=== PATIENT | male | born 1945 | race Caucasian/White ===

== ENCOUNTER → 2017-08-27 | Outpatient (CLI) | payer MEDICARE ==
--- NOTE | 2017-08-27 13:01 | US ---
EXAMINATION TYPE: US kidneys/renal and bladder DATE OF EXAM: 08/27/2017 COMPARISON: US CLINICAL HISTORY: N18.3 Chronic kidney disease stage 3. EXAM MEASUREMENTS: Right Kidney: 10.1 x 5.6 x 5.2 cm Left Kidney: 10.3 x 5.6 x 5.2 cm Right Kidney: No hydronephrosis or masses seen, thinned cortex and diminished cortical medullary diff erentiation Left Kidney: 0.9 cm anechoic cyst with increased through transmission. Cortical thinning and diminish ed cortical medullary differentiation are noted. Bladder: not well distended and suboptimally evaluated. IMPRESSION: Solitary subcentimeter left renal cortical cyst in the setting of medical renal disease. No hydroneph rosis or nephrolithiasis.
== END | disposition home or self-care (01) ==
LOC: RADUSWWP 12:14
PROVIDERS: ATTEND Internal Medicine Nephrology
DX: N28.1 Cyst of kidney, acquired (principal); N18.3 Chronic kidney disease, stage 3 (moderate)
CPT/HCPCS: 76770

== ENCOUNTER → 2018-09-22 | Outpatient (CLI) | payer MEDICARE ==
--- NOTE | 2018-09-23 06:54 | US ---
EXAMINATION TYPE: US kidneys/renal and bladder DATE OF EXAM: 09/22/2018 COMPARISON: 2017 CLINICAL HISTORY: N18.3 CKD stage 3. EXAM MEASUREMENTS: Right Kidney: 9.1 x 4.9 x 5.3 cm Left Kidney: 9.8 x 5.5 x 3.9 cm Post Void Residual Volume: 32 mL Right Kidney: No hydronephrosis or masses seen Left Kidney: small cortical cyst 0.7 x 1.2 x 0.8 cm Bladder: wnl Bilateral Jets seen: Yes Normal Post Void Residual: Yes There is no evidence for hydronephrosis at this point in time. No nephrolithiasis is seen. No dontae s are identified. Cortical thinning in both kidneys is seen. Adjacent liver near Right kidney remains heterogeneously hyperechoic. The urinary bladder is poorly distended and thus lehman boptimally evaluated. Bilateral ureteral jets are however seen. IMPRESSION: No hydronephrosis is evident bilaterally. Cortical thinning bilaterally is felt product of chronic me dical renal disease. Probable fatty infiltration of adjacent liver incidentally noted.
== END ==
LOC: RADUSWWP 15:58
PROVIDERS: ATTEND Internal Medicine Nephrology
DX: N18.3 Chronic kidney disease, stage 3 (moderate) (principal)
CPT/HCPCS: 76770

== ENCOUNTER 2020-06-02 11:32 | Inpatient (IN) | payer MEDICARE ==
--- NOTE | 2020-06-02 12:22 | XR ---
EXAMINATION TYPE: XR chest 2V DATE OF EXAM: 06/02/2020 COMPARISON: NONE HISTORY: Shortness of breath TECHNIQUE: Frontal and lateral views of the chest are obtained. FINDINGS: Scattered senescent parenchymal changes noted. Hyperinflation compatible with COPD. No evidence for infiltrate. No evidence for atelectasis. Heart size is stable. Mediastinal structures are stable and grossly unremarkable. No evidence for hilar prominence. Degenerative changes dorsal spine. IMPRESSION: 1. No evidence for acute pulmonary disease.
[2020-06-02 12:43] LABS: Basophils % (A) 0 %; Eosinophils # (A) 0.1 k/uL (0-0.7); Eosinophils % (A) 1 %; HCT 43.4 % (39.0-53.0); HGB 13.5 gm/dL (13.0-17.5); Lymphocytes % (A) 5 %; MCH 29.9 pg (25.0-35.0); MCV 96.4 fL (80.0-100.0); Mean Platelet Volume 9.2; Monocytes % (A) 4 %; Neutrophils # (A) 20.6 k/uL (1.3-7.7); Neutrophils % (A) 90 %; Platelet Count 359 k/uL (150-450); RBC 4.51 m/uL (4.30-5.90); RDW 14.6 % (11.5-15.5); WBC 22.9 k/uL (3.8-10.6)
[2020-06-02 12:52] LABS: Albumin 2.5 g/dL (3.5-5.0); Calcium 9.1 mg/dL (8.4-10.2); Magnesium 2.2 mg/dL (1.6-2.3); Potassium 5.3 mmol/L (3.5-5.1); Total Bilirubin 1.2 mg/dL (0.2-1.3); Total Protein 5.7 g/dL (6.3-8.2)
--- NOTE | 2020-06-02 12:53 | ED ---
General Adult HPI - General Chief complaint: Recheck/Abnormal Lab/Rx Stated complaint: Abnormal labs Time Seen by Provider: 06/02/20 11:40 Source: patient, RN notes reviewed, old records reviewed Mode of arrival: wheelchair Limitations: physical limitation - History of Present Illness Initial comments: 75 yo female presenting for evaluation of abnormal labs and generalized weakness and fatigue. Patient states he had elevated INR, greater than 9. He has history of atrial fibrillation and is on Coumadin. He does report dyspnea with exertion and is easily fatigued. He denies chest pain. Denies headache. States he has had some hemorrhoids and his had some rectal bleeding. He denies abdominal pain. Denies fever. Denies cough. - Related Data Home Medications Medication Instructions Recorded Confirmed INSULIN ASPART (NovoLOG) [NovoLOG] See Protocol SQ AC-TID 11/01/14 06/02/20 Insulin Detemir (Levemir) [Levemir] 36 unit SQ DAILY 11/01/14 06/02/20 Metoprolol Tartrate [Lopressor] 50 mg PO BID 11/01/14 06/02/20 Simvastatin [Zocor] 20 mg PO HS 11/01/14 06/02/20 metFORMIN HCL [Glucophage] 500 mg PO BID 11/01/14 06/02/20 Calcitriol [Rocaltrol] 0.25 mcg PO WE@2100 06/02/20 06/02/20 Diltiazem HCl [Diltiazem HCl 24Hr 180 mg PO DAILY 06/02/20 06/02/20 ER] Allergies Allergy/AdvReac Type Severity Reaction Status Date / Time No Known Allergies Allergy Verified 06/02/20 12:37 Review of Systems ROS Statement: Those systems with pertinent positive or pertinent negative responses have been documented in the HPI. ROS Other: All systems not noted in ROS Statement are negative. Past Medical History Past Medical History: Atrial Fibrillation, Diabetes Mellitus, Hyperlipidemia, Hypertension History of Any Multi-Drug Resistant Organisms: None Reported Past Surgical History: Hernia Repair Additional Past Surgical History / Comment(s): cataract/ colonoscopy Past Psychological History: No Psychological Hx Reported Smoking Status: Former smoker Past Alcohol Use History: None Reported Past Drug Use History: None Reported - Past Family History Mother Family Medical History: Hypertension Father History Unknown: Yes Family Medical History: No Reported History General Exam Limitations: physical limitation General appearance: alert, in no apparent distress Head exam: Present: atraumatic, normocephalic Eye exam: Present: normal appearance, PERRL ENT exam: Present: mucous membranes dry Neck exam: Present: normal inspection. Absent: tenderness, meningismus Respiratory exam: Present: other (Tachypnea with good air entry). Absent: respiratory distress, wheezes Cardiovascular Exam: Present: normal rhythm, tachycardia GI/Abdominal exam: Present: soft. Absent: distended, tenderness, guarding Extremities exam: Present: normal inspection, normal capillary refill. Absent: pedal edema Neurological exam: Present: alert, oriented X3, CN II-XII intact. Absent: motor sensory deficit Psychiatric exam: Present: normal affect, normal mood Skin exam: Present: warm, dry, intact Course Vital Signs 06/02/20 06/02/20 06/02/20 11:33 12:00 13:03 Temperature 98.8 F Pulse Rate 127 H 122 H 108 H Respiratory 20 22 23 Rate Blood Pressure 101/64 101/78 117/72 O2 Sat by Pulse 98 98 98 Oximetry 06/02/20 14:02 Temperature Pulse Rate 101 H Respiratory 22 Rate Blood Pressure 102/75 O2 Sat by Pulse 96 Oximetry EKG Findings - EKG Comments: EKG Findings:: EKG: Atrial fibrillation with RVR, rate of 127, QRS duration 84, QTC 453, no ST segment elevation. Procedures - Sepsis Sepsis Focused Exam #1 Time Sepsis Criteria Met: 13:05 Sepsis Focused Exam Complete: Yes Vital Signs & RN Notes Reviewed: Yes Capillary Refill: < 2 Seconds: Fingers Peripheral Pulses: Normal: Radial (R), Radial (L) Skin Color: Normal for Patient Respiratory Exam: other (Mildly tachypneic respiratory rate of 22, good air entry) Cardiovascular Exam: regular rate, irregular rhythm Medical Decision Making - Medical Decision Making 75-year-old male presenting with abnormal labs, elevated INR. He does appear dyspneic and exam complaining of exertional dyspneic lungs are clear workup re veals significant leukocytosis, elevated lactic acid 5.7. The patient does not have any focal pneumonia on x-ray. He does have an elevated transaminase levels as well as alkaline phosphatase, ultrasound of the gallbladder has been ordered these results are pending. Patient is unable to give a urine sample in the emergency department, urinalysis and urine culture are pending. Blood cultures pending. Given vitamin K, Zosyn, vancomycin. Case discussed with Dr. Meneses, will admit awaiting further infectious workup as well as close monitoring of both vital signs, hemoglobin, INR. - Lab Data Result diagrams: 06/02/20 11:58 06/02/20 11:58 Lab Results 06/02/20 06/02/20 06/02/20 Range/Units 11:58 11:58 11:58 WBC 22.9 H (3.8-10.6) k/uL RBC 4.51 (4.30-5.90) m/uL Hgb 13.5 (13.0-17.5) gm/dL Hct 43.4 (39.0-53.0) % MCV 96.4 (80.0-100.0) fL MCH 29.9 (25.0-35.0) pg MCHC 31.0 (31.0-37.0) g/dL RDW 14.6 (11.5-15.5) % Plt Count 359 (150-450) k/uL Neutrophils % 90 % Lymphocytes % 5 % Monocytes % 4 % Eosinophils % 1 % Basophils % 0 % Neutrophils # 20.6 H (1.3-7.7) k/uL Lymphocytes # 1.0 (1.0-4.8) k/uL Monocytes # 1.0 (0-1.0) k/uL Eosinophils # 0.1 (0-0.7) k/uL Basophils # 0.0 (0-0.2) k/uL PT >130.0 H (9.0-12.0) sec INR >10.0 H* (<1.2) APTT 80.1 H (22.0-30.0) sec Sodium 134 L (137-145) mmol/L Potassium 5.3 H (3.5-5.1) mmol/L Chloride 102 (98-107) mmol/L Carbon Dioxide 21 L (22-30) mmol/L Anion Gap 11 mmol/L BUN 27 H (9-20) mg/dL Creatinine 1.23 (0.66-1.25) mg/dL Est GFR (CKD-EPI)AfAm 67 (>60 ml/min/1.73 sqM) Est GFR (CKD-EPI)NonAf 58 (>60 ml/min/1.73 sqM) Glucose 174 H (74-99) mg/dL Plasma Lactic Acid Brenton (0.7-2.0) mmol/L Calcium 9.1 (8.4-10.2) mg/dL Magnesium 2.2 (1.6-2.3) mg/dL Total Bilirubin 1.2 (0.2-1.3) mg/dL AST 173 H (17-59) U/L ALT 91 H (4-49) U/L Alkaline Phosphatase 965 H (38-126) U/L Troponin I (0.000-0.034) ng/mL NT-Pro-B Natriuret Pep pg/mL Total Protein 5.7 L (6.3-8.2) g/dL Albumin 2.5 L (3.5-5.0) g/dL 06/02/20 06/02/20 06/02/20 Range/Units 11:58 11:58 11:58 WBC (3.8-10.6) k/uL RBC (4.30-5.90) m/uL Hgb (13.0-17.5) gm/dL Hct (39.0-53.0) % MCV (80.0-100.0) fL MCH (25.0-35.0) pg MCHC (31.0-37.0) g/dL RDW (11.5-15.5) % Plt Count (150-450) k/uL Neutrophils % % Lymphocytes % % Monocytes % % Eosinophils % % Basophils % % Neutrophils # (1.3-7.7) k/uL Lymphocytes # (1.0-4.8) k/uL Monocytes # (0-1.0) k/uL Eosinophils # (0-0.7) k/uL Basophils # (0-0.2) k/uL PT (9.0-12.0) sec INR (<1.2) APTT (22.0-30.0) sec Sodium (137-145) mmol/L Potassium (3.5-5.1) mmol/L Chloride (98-107) mmol/L Carbon Dioxide (22-30) mmol/L Anion Gap mmol/L BUN (9-20) mg/dL Creatinine (0.66-1.25) mg/dL Est GFR (CKD-EPI)AfAm (>60 ml/min/1.73 sqM) Est GFR (CKD-EPI)NonAf (>60 ml/min/1.73 sqM) Glucose (74-99) mg/dL Plasma Lactic Acid Brenton 5.7 H* (0.7-2.0) mmol/L Calcium (8.4-10.2) mg/dL Magnesium (1.6-2.3) mg/dL Total Bilirubin (0.2-1.3) mg/dL AST (17-59) U/L ALT (4-49) U/L Alkaline Phosphatase (38-126) U/L Troponin I <0.012 (0.000-0.034) ng/mL NT-Pro-B Natriuret Pep 3460 pg/mL Total Protein (6.3-8.2) g/dL Albumin (3.5-5.0) g/dL Critical Care Time Critical Care Time: Yes Total Critical Care Time: 35 Disposition Clinical Impression: Supratherapeutic INR, Lactic acid acidosis, Sepsis Disposition: ADMITTED IP TO THIS [facility] Condition: Stable Is patient prescribed a controlled substance at d/c from ED?: No Decision to Admit Reason: Admit from EC Decision Date: 06/02/20 Decision Time: 13:51
[2020-06-02] MEDS ORDERED: SODIUM CHLORIDE 0.9% 1,000 ML IV ONE (13:02)
[2020-06-02] MEDS ORDERED: PIPERACILLIN-TAZOBACTAM 3.375 GM in SODIUM CHLORIDE 0.9% 100 ML IVPB STA (13:03)
[2020-06-02 13:07] LABS: INR >10.0 (<1.2)
[2020-06-02 13:11] LABS: Partial Thromboplastin Time 80.1 sec (22.0-30.0)
[2020-06-02 13:12] LABS: Prothrombin Time >130.0 sec (9.0-12.0)
[2020-06-02] MEDS ORDERED: VANCOMYCIN IV PER PHARMACY 1 EACH MISC MISCELLANE PRN (13:27)
[2020-06-02] MEDS ORDERED: PHYTONADIONE 5 MG in SODIUM CHLORIDE 0.9% 50 ML IVPB STA (13:32)
[2020-06-02] MEDS ORDERED: NALOXONE 0.4 MG/ML 1 ML VIAL IV PRN (13:44)
[2020-06-02] MEDS ORDERED: VANCOMYCIN 1,750 MG in SODIUM CHLORIDE 0.9% 500 ML 500 ML IVPB ONE (14:00)
[2020-06-02] MEDS: SODIUM CHLORIDE 0.9% 1,000 ML IV SCH (14:06)
--- NOTE | 2020-06-02 14:52 | US ---
EXAMINATION TYPE: US gallbladder DATE OF EXAM: 06/02/2020 COMPARISON: Ultrasound kidneys 09/22/2018 CLINICAL HISTORY: Abdominal pain. Elevated LFT's EXAM MEASUREMENTS: Liver Length: 20.3 cm Gallbladder Wall: 0.6 cm CBD: 0.5 cm Right Kidney: 8.9 x 5.0 x 6.0 cm Pancreas: Obscured due to overlying bowel gas Liver: Peripheral nodular contour. Caudate lobe enlargement. The liver is diffusely heterogenous wit h innumerable masses. Gallbladder: The gallbladder is contracted. There is wall thickening up to 6 mm. No cholelithiasis o r pericholecystic edema. Supervisor Typesetting reports negative sonographic Hummel sign. CBD: Normal. Right Kidney: No hydronephrosis; interpolar cyst measures 0.9 x 0.8 x 1.2 cm. Trace perihepatic ascites. IMPRESSION: 1. Cirrhotic heterogenous liver with innumerable hepatic masses likely representing diffuse metastati c disease. 2. Trace perihepatic ascites. 3. Gallbladder wall thickening is accentuated due to contracted state of the gallbladder, although li janki mildly thickened due to adjacent liver disease. No signs of acute cholecystitis.
[2020-06-02] MEDS ORDERED: RX INFO: IV CONTRAST WAS GIVEN 1 EACH MISC MISCELLANE PRN (16:23)
--- NOTE | 2020-06-02 16:29 | P.CNPUL ---
History of Present Illness Consult date: 06/02/20 Chief complaint: Generalized body aches, Coumadin toxicity History of present illness: 75-year-old female patient who presented emergency department because of generalized weakness and fatigue. The patient's is known to have diabetes mellitus in addition to chronic atrial fibrillation. 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 The blood work that was done and the ED was quite abnormal. The patient was toxic on Coumadin with an elevated INR of more than 10 without signs of any acute bleeding. Also, the patient had a white cell count of 22.9 and a lactate level of 5.7.He also abnormal with an ALT of 91, AST of 173 and bilirubin of 1.2 with an alk phos of 965. ProBNP level was 3460. Total protein was 5.7 with an albumin level of 2.5. This patient does not have any nausea or vomiting. No reported abdominal pain. No reported fever chills or night sweats. No reported cough or sputum production or chest that is so wheezing. No reported falls. Trace edema lower extremities. No headaches. No neck stiffness. No altered mentation. He has diffuse body soreness and body aches it's been going on for several months. He takes a statin medication. He soreness is throughout his body mainly in his upper and lower back area bilaterally. No recent falls. No open wounds or sores or ulceration. No dysu solis frequency or urgency.Ultrasound of the liver showed cirrhotic heterogeneous liver with multiple liver masses likely representing diffuse metastatic disease. There is also gallbladder wall thickening due to contracted state of the gallbladder. Review of Systems Constitutional: Reports fatigue, Reports weakness Eyes: denies as per HPI, denies blurred vision, denies bulging eye, denies decreased vision, denies diplopia, denies discharge, denies dry eye, denies irritation, denies itching, denies pain, denies photophobia, denies loss of peripheral vision, denies loss of vision, denies tunnel vision/blind spots Ears: deny: decreased hearing, ear discharge, earache, tinnitus Breasts: absent: as per HPI, gynecomastia Cardiovascular: Reports as per HPI, Reports irregular heart beat Respiratory: Reports as per HPI Gastrointestinal: Reports as per HPI Genitourinary: Reports as per HPI Musculoskeletal: Reports as per HPI Musculoskeletal: bilateral: ankle swelling, absent: ankle pain, ankle stiffness Neurological: Reports as per HPI Psychiatric: Reports as per HPI Endocrine: Reports as per HPI, Reports fatigue Hematologic/Lymphatic: Reports as per HPI Allergic/Immunologic: Reports as per HPI Past Medical History Past Medical History: Atrial Fibrillation, Diabetes Mellitus, Hyperlipidemia, Hypertension, Renal Disease, Vascular Disorder Additional Past Medical History / Comment(s): Per past medical record pt has hx CHF/pulmonary htn but pt/spouse do not recall this, IDDM type II, chronic renal disease, lower GI bleed pt thinks attributed to hemorrhoids, PVD, past L lower leg wound-healed, occasional bilateral lower leg edema, back pain, 2010 head trauma/contusion with L sided symptoms/seizure-no residual, past heavy drinking but quit in 2005. History of Any Multi-Drug Resistant Organisms: None Reported Past Surgical History: Hernia Repair Additional Past Surgical History / Comment(s): R inguinal hernia repair, colonoscopy, bilateral cataract removals/lens implant, pt unsure if had tonsillectomy. Past Anesthesia/Blood Transfusion Reactions: No Reported Reaction Smoking Status: Former smoker - Past Family History Mother Family Medical History: Hypertension Father History Unknown: Yes Family Medical History: No Reported History Medications and Allergies Home Medications Medication Instructions Recorded Confirmed Type INSULIN ASPART (NovoLOG) [NovoLOG] See Protocol SQ AC-TID 11/01/14 06/02/20 History Insulin Detemir (Levemir) [Levemir] 36 unit SQ DAILY 11/01/14 06/02/20 History Metoprolol Tartrate [Lopressor] 50 mg PO BID 11/01/14 06/02/20 History Simvastatin [Zocor] 20 mg PO HS 11/01/14 06/02/20 History metFORMIN HCL [Glucophage] 500 mg PO BID 11/01/14 06/02/20 History Calcitriol [Rocaltrol] 0.25 mcg PO WE@2100 06/02/20 06/02/20 History Diltiazem HCl [Diltiazem HCl 24Hr 180 mg PO DAILY 06/02/20 06/02/20 History ER] Allergies Allergy/AdvReac Type Severity Reaction Status Date / Time No Known Allergies Allergy Verified 06/02/20 12:37 Physical Exam Vitals: Vital Signs Temp Pulse Resp BP Pulse Ox 06/02/20 14:55 122 H 20 121/90 98 06/02/20 14:02 101 H 22 102/75 96 06/02/20 13:03 108 H 23 117/72 98 06/02/20 12:00 122 H 22 101/78 98 06/02/20 11:33 98.8 F 127 H 20 101/64 98 Intake and Output 06/02/20 06/02/20 06/02/20 06:59 14:59 22:59 Other: Weight 102.058 kg The patient appeared well nourished and normally developed. Vital signs as documented. Head exam is unremarkable. No scleral icterus or corneal arcus noted. Neck is without jugular venous distension, thyromegaly, or carotid bruits. Carotid upstrokes are brisk bilaterally. Lungs are clear to auscultation and percussion. Cardiac exam reveals the PMI to be normally sized and situated. Rhythm is regular. First and second heart sounds normal. No murmurs, rubs or gallops. Abdominal exam reveals normal bowel sounds, no masses, no organomegaly and no aortic enlargement. Extremities are edematous and the patient has +1 pitting edema in lower extremities bilaterally and both femoral and pedal pulses are normal.Neurologically, the patient is awake and alert and the patient does not have any focal neurological deficit. Cranial nerves are essentially intact.Examination of the skin revealed no evidence of significant rashes, suspicious appearing nevi or other concerning lesions. Results - Laboratory Findings CBC and BMP: 06/02/20 11:58 06/02/20 11:58 PT/INR, D-dimer PT >130.0 sec (9.0-12.0) H 06/02/20 11:58 INR >10.0 (<1.2) H* 06/02/20 11:58 Abnormal lab findings: Abnormal Labs 06/02/20 06/02/20 06/02/20 11:58 11:58 11:58 WBC 22.9 H Neutrophils # 20.6 H PT >130.0 H INR >10.0 H* APTT 80.1 H Sodium 134 L Potassium 5.3 H Carbon Dioxide 21 L BUN 27 H Glucose 174 H Plasma Lactic Acid Brenton AST 173 H ALT 91 H Alkaline Phosphatase 965 H Total Protein 5.7 L Albumin 2.5 L 06/02/20 11:58 WBC Neutrophils # PT INR APTT Sodium Potassium Carbon Dioxide BUN Glucose Plasma Lactic Acid Brenton 5.7 H* AST ALT Alkaline Phosphatase Total Protein Albumin - Diagnostic Findings Chest x-ray: image reviewed Assessment and Plan Plan: 1 generalized weakness, constipation symptoms with weight loss, loss of appetite and body aches, consider underlying metastatic disease/malignancy especially the patient had abnormal LFTs and the patient has an ultrasound of the abdomen that showed multiple hepatic lesions consistent with metastatic disease. This is to be further investigated. 2 cirrhotic liver based on ultrasound criteria 3 abnormal LFTs 4 mild lactic acidosis likely secondary to liver disease 5 leukocytosis, nonspecific, noninfectious 6 chronic atrial fibrillation, rate controlled 7 supratherapeutic PT/INR, INR of more than 10 without evidence of an acute bleed 8 diabetes mellitus 9 hypertension 10 hyperlipidemia. 11 peripheral vascular disease 12 CHF with secondary pulmonary hypertension 13 remote history of head trauma/contusion 14 remote history of alcoholism quit drinking 2005 Plan We'll admit the patient to the ICU We'll put the patient IV fluids of normal saline today to 130s's an hour We'll monitor the lactic acid level Will give 5 mg of vitamin K and recheck the PT/INR With proceed with a CAT scan of the chest abdomen and pelvis for cancer screening We'll check CEA and CA 19 9 levels Check amylase and lipase Colonoscopy done in 2014 was consistent with internal hemorrhoids without evidence of any malignancy
[2020-06-02 16:51] LABS: Glucose,Whole Blood 107 mg/dL (75-99)
[2020-06-02] MEDS: IOPAMIDOL CONTRAST (ORAL USE) VIAL PO PRN ×2 (17:33→18:28)
[2020-06-02 19:08] LABS: INR 3.9 (<1.2); Partial Thromboplastin Time 43.1 sec (22.0-30.0); Prothrombin Time 38.5 sec (9.0-12.0)
[2020-06-02 19:15] LABS: Amylase 58 U/L (30-110)
[2020-06-02 20:03] LABS: Appearance,Urine Clear (Clear); Bilirubin,Urine Negative (Negative); Blood,Urine Trace (Negative); Color,Urine Yellow; Glucose,Urine (UA) Negative (Negative); Hyaline Casts,Urine 39 /lpf (0-2); Ketones,Urine Negative (Negative); Leukocyte Esterase,Urine Negative (Negative); Mucus,Urine Rare /hpf; Nitrite,Urine Negative (Negative); Protein,Urine Negative (Negative); RBC,Urine 7 /hpf (0-5); Specific Gravity,Urine 1.032 (1.001-1.035); Squamous Epithelial Cell,Urine 1 /hpf (0-4); Urobilinogen,Urine <2.0 mg/dL (<2.0); WBC,Urine 2 /hpf (0-5)
[2020-06-02] MEDS: METOPROLOL TARTRATE 50 MG TAB PO SCH (20:47)
[2020-06-02 22:26] LABS: Glucose,Whole Blood 157 mg/dL (75-99)
[2020-06-02] MEDS: INSULIN ASPART (NovoLOG) 100 UNIT/ML VIAL SQ SCH (22:30)
--- NOTE | 2020-06-02 22:47 | CT ---
EXAMINATION TYPE: CT ChestAbdPelvis w con DATE OF EXAM: 06/02/2020 INDICATION: Weakness and abnormal labs. Metastatic disease. COMPARISON: None CT DLP: 2279.4 mGycm CONTRAST: Performed with Oral Contrast and with IV Contrast, patient injected with 80ml mL of Isovue 300. TECHNIQUE: Axial images at 5 mm thick sections. Reconstructed images in the coronal plane. Delayed images through the kidneys. FINDINGS: CT CHEST: Portion of the thyroid visualized is normal. No suspicious lung nodules. There is an infiltrate in the posterior lateral right lung base is some a telectasis or pneumonia. This should be followed to clearing. Small right pleural effusion is present . No enlarged mediastinal or hilar adenopathy is evident. The ascending aorta diameter at the level of the main pulmonary artery is 3.2 cm. The main pulmonary artery diameter at the bifurcation is 2.[address] ABDOMEN: Liver: Very heterogenous enlarged. Findings suspicious for extensive metastatic disease. Delayed imag es better demonstrate the largest lesion, a low-4 cm right mid measuring 4.1 cm. Small amount of asci cristina is adjacent to the liver. Spleen: Normal. Small amount of ascites is adjacent to the spleen. Pancreas: Atrophic Adrenal glands: The adrenal glands are normal. Gallbladder: Normal Kidneys: No masses are evident. No hydronephrosis is present. No cysts are present. Delayed images were obtained through the kidneys, which remain unremarkable. Aorta: Vascular calcification is within the aorta. Inferior vena cava: Normal. CT PELVIS: Free fluid is within the pelvis. Loops of bowel within the abdomen and pelvis are normal. There are loops of bowel which are incom pletely distended or lack oral contrast limiting their evaluation. Appendix: Not identified. No suspicious tubular structure inflammatory changes are evident. Urinary bladder: Normal. Genitourinary structures: Prostate is slightly prominent. Osseous structures: No suspicious lytic or sclerotic lesions. IMPRESSIONS: 1. Enlarged extensive heterogenous liver compatible with metastatic disease. 2. Ascites.
[2020-06-03] MEDS: SODIUM CHLORIDE 0.9% 1,000 ML IV SCH ×2 (03:30→03:37)
[2020-06-03] MEDS: PIPERACILLIN-TAZOBACTAM 3.375 GM in SODIUM CHLORIDE 0.9% 100 ML IVPB SCH ×3 (03:32→15:33)
[2020-06-03 03:55] LABS: Basophils % (A) 0 %; Eosinophils # (A) 0.1 k/uL (0-0.7); Eosinophils % (A) 1 %; HCT 36.5 % (39.0-53.0); HGB 11.2 gm/dL (13.0-17.5); Hypochromasia Slight; Lymphocytes # (A) 1.5 k/uL (1.0-4.8); Lymphocytes % (A) 8 %; MCH 29.9 pg (25.0-35.0); MCHC 30.7 g/dL (31.0-37.0); MCV 97.5 fL (80.0-100.0); Mean Platelet Volume 8.9; Monocytes # (A) 0.8 k/uL (0-1.0); Monocytes % (A) 4 %; Neutrophils # (A) 16.9 k/uL (1.3-7.7); Neutrophils % (A) 87 %; Platelet Count 268 k/uL (150-450); RBC 3.75 m/uL (4.30-5.90); RDW 14.5 % (11.5-15.5); WBC 19.4 k/uL (3.8-10.6)
[2020-06-03 04:08] LABS: INR 1.9 (<1.2); Prothrombin Time 18.1 sec (9.0-12.0)
[2020-06-03 04:11] LABS: Calcium 8.6 mg/dL (8.4-10.2); Potassium 4.9 mmol/L (3.5-5.1)
[2020-06-03 07:06] LABS: Glucose,Whole Blood 126 mg/dL (75-99)
[2020-06-03] MEDS: INSULIN ASPART (NovoLOG) 100 UNIT/ML VIAL SQ SCH ×4 (07:08→20:52)
[2020-06-03] MEDS: ACETAMINOPHEN TAB 325 MG TAB PO PRN ×2 (07:08→15:33)
[2020-06-03] MEDS: METOPROLOL TARTRATE 50 MG TAB PO SCH ×2 (07:09→20:52)
[2020-06-03] MEDS: VANCOMYCIN 1,750 MG in SODIUM CHLORIDE 0.9% 500 ML 500 ML IVPB SCH ×2 (08:04→20:59)
[2020-06-03] MEDS: DILTIAZEM CD 180 MG CAP.ER.24H PO SCH (08:05)
--- NOTE | 2020-06-03 11:25 | P.PN ---
Subjective Progress Note Date: 06/03/20 75-year-old female patient who presented emergency department because of generalized weakness and fatigue. The patient's is known to have diabetes mellitus in addition to chronic atrial fibrillation. 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 The blood work that was done and the ED was quite abnormal. The patient was toxic on Coumadin with an elevated INR of more than 10 without signs of any acute bleeding. Also, the patient had a white cell count of 22.9 and a lactate level of 5.7.He also abnormal with an ALT of 91, AST of 173 and bilirubin of 1.2 with an alk phos of 965. ProBNP level was 3460. Total protein was 5.7 with an albumin level of 2.5. This patient does no t have any nausea or vomiting. No reported abdominal pain. No reported fever chills or night sweats. No reported cough or sputum production or chest that is so wheezing. No reported falls. Trace edema lower extremities. No headaches. No neck stiffness. No altered mentation. He has diffuse body soreness and body aches it's been going on for several months. He takes a statin medication. He soreness is throughout his body mainly in his upper and lower back area bilaterally. No recent falls. No open wounds or sores or ulceration. No dysuria frequency or urgency.Ultrasound of the liver showed cirrhotic heterogeneous liver with multiple liver masses likely representing diffuse metastatic disease. There is also gallbladder wall thickening due to contracted state of the gallbladder. On 06/03/2020, the patient is being seen in follow-up in the intensive care unit. The patient is calm and comfortable and has no specific complaints. Note that the patient's was hospitalized for some constitutional symptoms addition lactic acidosis of Coumadin toxicity. The Coumadin toxicity was reversed and the patient's INR is down to 1.9. He'll be kept off Coumadin for now. At the same time, further investigation showed the possibility of a metastatic liver involvement and the patient will need further investigation. CAT scan of the chest abdomen and pelvis was completed and the CAT scan showed enlarged extensive heterogeneous liver compatible with metastatic disease. Note that t here was large lesions in the liver up to 4 cm in size and small amount of ascites. The white cell count is at 19.4. Hemoglobin is 11.2. INR is down to 1.9. Her function is stable with a creatinine of 1.2. The patient's lactic acid level is at 3.9. Calcium is at 8.6. He is tolerating his diet. No nausea. No vomiting. No diarrhea. No abdominal pain. No other complaints otherwise for now. Objective - Vital Signs Vital signs: Vital Signs Temp 98.2 F 06/03/20 04:00 Pulse 111 H 06/03/20 09:00 Resp 19 06/03/20 09:00 BP 105/77 06/03/20 08:00 Pulse Ox 94 L 06/03/20 09:00 Intake & Output 06/02/20 06/03/20 06/03/20 18:59 06:59 18:59 Intake Total 130 2760 1220 Output Total 460 0 Balance 130 2300 1220 Weight 102.058 kg 105.097 kg Intake: IV 130 1560 260 Sodium Chloride 0.9% 1, 130 1560 260 000 ml @ 130 mls/hr IV . Q7H42M [facility] Rx#:[id number] Intake, IV Titration 600 Amount Piperacillin-Tazobactam 3 100 .375 gm In Sodium Chloride 0.9% 100 ml @ 25 mls/hr IVPB Q8HR [facility] Rx# :[id number] Vancomycin 1,750 mg In 500 Sodium Chloride 0.9% 500 ml 500 ml @ 167 mls/hr IVPB Q16H [facility] Rx#: [id number] Oral 1200 360 Output: Urine 460 0 Other: Voiding Method Urinal Urinal # Voids 1 1 # Bowel Movements 1 1 - Exam The patient appeared well nourished and normally developed. Vital signs as documented. Head exam is unremarkable. No scleral icterus or corneal arcus noted. Neck is without jugular venous distension, thyromegaly, or carotid bruits. Carotid upstrokes are brisk bilaterally. Lungs are clear to auscultation and percussion. Cardiac exam reveals the PMI to be normally sized and situated. Rhythm is regular. First and second heart sounds normal. No murmurs, rubs or gallops. Abdominal exam reveals normal bowel sounds, no masses, no organomegaly and no aortic enlargement. Extremities are edematous and the patient has +1 pitting edema in lower extremities bilaterally and both femoral and pedal pulses are normal.Neurologically, the patient is awake and alert and the patient does not have any focal neurological deficit. Cranial nerves are essentially intact.Examination of the skin revealed no evidence of significant rashes, suspicious appearing nevi or other concerning lesions. - Labs CBC & Chem 7: 06/03/20 03:29 06/03/20 03:29 Labs: Abnormal Lab Results - Last 24 Hours (Table) 06/02/20 06/02/20 06/02/20 Range/Units 11:58 11:58 11:58 WBC 22.9 H (3.8-10.6) k/uL RBC (4.30-5.90) m/uL Hgb (13.0-17.5) gm/dL Hct (39.0-53.0) % MCHC (31.0-37.0) g/dL Neutrophils # 20.6 H (1.3-7.7) k/uL PT >130.0 H (9.0-12.0) sec INR >10.0 H* (<1.2) APTT 80.1 H (22.0-30.0) sec Sodium 134 L (137-145) mmol/L Potassium 5.3 H (3.5-5.1) mmol/L Carbon Dioxide 21 L (22-30) mmol/L BUN 27 H (9-20) mg/dL Glucose 174 H (74-99) mg/dL POC Glucose (mg/dL) (75-99) mg/dL Plasma Lactic Acid Brenton (0.7-2.0) mmol/L AST 173 H (17-59) U/L ALT 91 H (4-49) U/L Alkaline Phosphatase 965 H (38-126) U/L Total Protein 5.7 L (6.3-8.2) g/dL Albumin 2.5 L (3.5-5.0) g/dL Urine Blood (Negative) Urine RBC (0-5) /hpf Hyaline Casts (0-2) /lpf Urine Mucus (None) /hpf 06/02/20 06/02/20 06/02/20 Range/Units 11:58 15:09 16:49 WBC (3.8-10.6) k/uL RBC (4.30-5.90) m/uL Hgb (13.0-17.5) gm/dL Hct (39.0-53.0) % MCHC (31.0-37.0) g/dL Neutrophils # (1.3-7.7) k/uL PT (9.0-12.0) sec INR (<1.2) APTT (22.0-30.0) sec Sodium (137-145) mmol/L Potassium (3.5-5.1) mmol/L Carbon Dioxide (22-30) mmol/L BUN (9-20) mg/dL Glucose (74-99) mg/dL POC Glucose (mg/dL) 107 H (75-99) mg/dL Plasma Lactic Acid Brenton 5.7 H* 4.4 H* (0.7-2.0) mmol/L AST (17-59) U/L ALT (4-49) U/L Alkaline Phosphatase (38-126) U/L Total Protein (6.3-8.2) g/dL Albumin (3.5-5.0) g/dL Urine Blood (Negative) Urine RBC (0-5) /hpf Hyaline Casts (0-2) /lpf Urine Mucus (None) /hpf 06/02/20 06/02/20 06/02/20 Range/Units 18:29 18:38 19:46 WBC (3.8-10.6) k/uL RBC (4.30-5.90) m/uL Hgb (13.0-17.5) gm/dL Hct (39.0-53.0) % MCHC (31.0-37.0) g/dL Neutrophils # (1.3-7.7) k/uL PT 38.5 H (9.0-12.0) sec INR 3.9 H (<1.2) APTT 43.1 H (22.0-30.0) sec Sodium (137-145) mmol/L Potassium (3.5-5.1) mmol/L Carbon Dioxide (22-30) mmol/L BUN (9-20) mg/dL Glucose (74-99) mg/dL POC Glucose (mg/dL) (75-99) mg/dL Plasma Lactic Acid Brenton 3.0 H* (0.7-2.0) mmol/L AST (17-59) U/L ALT (4-49) U/L Alkaline Phosphatase (38-126) U/L Total Protein (6.3-8.2) g/dL Albumin (3.5-5.0) g/dL Urine Blood Trace H (Negative) Urine RBC 7 H (0-5) /hpf Hyaline Casts 39 H (0-2) /lpf Urine Mucus Rare H (None) /hpf 06/02/20 06/02/20 06/03/20 Range/Units 21:26 22:24 00:15 WBC (3.8-10.6) k/uL RBC (4.30-5.90) m/uL Hgb (13.0-17.5) gm/dL Hct (39.0-53.0) % MCHC (31.0-37.0) g/dL Neutrophils # (1.3-7.7) k/uL PT (9.0-12.0) sec INR (<1.2) APTT (22.0-30.0) sec Sodium (137-145) mmol/L Potassium (3.5-5.1) mmol/L Carbon Dioxide (22-30) mmol/L BUN (9-20) mg/dL Glucose (74-99) mg/dL POC Glucose (mg/dL) 157 H (75-99) mg/dL Plasma Lactic Acid Brenton 3.7 H* 3.9 H* (0.7-2.0) mmol/L AST (17-59) U/L ALT (4-49) U/L Alkaline Phosphatase (38-126) U/L Total Protein (6.3-8.2) g/dL Albumin (3.5-5.0) g/dL Urine Blood (Negative) Urine RBC (0-5) /hpf Hyaline Casts (0-2) /lpf Urine Mucus (None) /hpf 06/03/20 06/03/20 06/03/20 Range/Units 03:29 03:29 03:29 WBC 19.4 H (3.8-10.6) k/uL RBC 3.75 L (4.30-5.90) m/uL Hgb 11.2 L (13.0-17.5) gm/dL Hct 36.5 L (39.0-53.0) % MCHC 30.7 L (31.0-37.0) g/dL Neutrophils # 16.9 H (1.3-7.7) k/uL PT 18.1 H (9.0-12.0) sec INR 1.9 H (<1.2) APTT (22.0-30.0) sec Sodium 132 L (137-145) mmol/L Potassium (3.5-5.1) mmol/L Carbon Dioxide (22-30) mmol/L BUN 29 H (9-20) mg/dL Glucose 120 H (74-99) mg/dL POC Glucose (mg/dL) (75-99) mg/dL Plasma Lactic Acid Brenton (0.7-2.0) mmol/L AST (17-59) U/L ALT (4-49) U/L Alkaline Phosphatase (38-126) U/L Total Protein (6.3-8.2) g/dL Albumin (3.5-5.0) g/dL Urine Blood (Negative) Urine RBC (0-5) /hpf Hyaline Casts (0-2) /lpf Urine Mucus (None) /hpf 06/03/ Range/Units 07:04 WBC (3.8-10.6) k/uL RBC (4.30-5.90) m/uL Hgb (13.0-17.5) gm/dL Hct (39.0-53.0) % MCHC (31.0-37.0) g/dL Neutrophils # (1.3-7.7) k/uL PT (9.0-12.0) sec INR (<1.2) APTT (22.0-30.0) sec Sodium (137-145) mmol/L Potassium (3.5-5.1) mmol/L Carbon Dioxide (22-30) mmol/L BUN (9-20) mg/dL Glucose (74-99) mg/dL POC Glucose (mg/dL) 126 H (75-99) mg/dL Plasma Lactic Acid Brenton (0.7-2.0) mmol/L AST (17-59) U/L ALT (4-49) U/L Alkaline Phosphatase (38-126) U/L Total Protein (6.3-8.2) g/dL Albumin (3.5-5.0) g/dL Urine Blood (Negative) Urine RBC (0-5) /hpf Hyaline Casts (0-2) /lpf Urine Mucus (None) /hpf Assessment and Plan Plan: 1 generalized weakness, constipation symptoms with weight loss, loss of appetite and body aches, consider underlying metastatic disease/malignancy especially the patient had abnormal LFTs and the patient has an ultrasound of the abdomen that showed multiple hepatic lesions consistent with metastatic disease. This is to be further investigated. 2 cirrhotic liver based on ultrasound criteria 3 abnormal LFTs 4 mild lactic acidosis likely secondary to liver disease 5 leukocytosis, nonspecific, noninfectious 6 chronic atrial fibrillation, rate controlled 7 supratherapeutic PT/INR, INR of more than 10 without evidence of an acute bleed 8 diabetes mellitus 9 hypertension 10 hyperlipidemia. 11 peripheral vascular disease 12 CHF with secondary pulmonary hypertension 13 remote history of head trauma/contusion 14 remote history of alcoholism quit drinking 2006 Plan The patient's IV fluid To KVO CAT scan of the chest abdomen and pelvis was noted Awaiting CEA and CA 199 levels in addition to that an alpha-fetoprotein level will be added Pancreatic enzymes were within normal limits Hold Coumadin Consult interventional radiology for liver biopsy We'll continue to follow
[2020-06-03 11:53] LABS: Glucose,Whole Blood 206 mg/dL (75-99)
--- NOTE | 2020-06-03 11:57 | P.HPIM ---
History of Present Illness H&P Date: 06/03/20 Chief Complaint: Generalized weakness fatigue This 75-year-old male patient of Dr. Muller's presented with generalized weakness fatigue patient complained initially in the office of flaring of hemorrhoids and some rectal bleeding. Was sent to the emergency room for [facility] er workup. Patient known diabetic chronic A. fib mildly demented long-term anticoagulant therapy with warfarin. He workup was abnormal with Coumadin toxicity elevated white count of 22.9 elected gas of level of 5.7 abnormal ALTs of 91 AST of 173 and bilirubin of 1.2 with alkaline phosphatase of 965. Patient role BNP level was 3460 total protein 5.7 albumin of 2.5. Does not complain of nausea vomiting no reported abdominal pain no fever no chills no night sweats. No cough or sputum production. No reported falls no edema no headache no stiffness no altered mentation or changes in current mental status. Patient has diffuse body soreness body aches been going on for several months he does take a statin no recent falls no open ulcers or sores. No dysuria frequency of her urgency. Ultrasound the liver shows cirrhotic heterogenous cyst liver with multiple mass likely representing diffuse metastasis, and a contracted gallbladder Review of Systems Constitutional: Reports as per HPI, Reports fatigue, Reports malaise, Reports poor appetite Ears, nose, mouth and throat: Reports as per HPI Cardiovascular: Reports dyspnea on exertion Respiratory: Reports dyspnea Gastrointestinal: Reports as per HPI (Blood in stool, known history of occasionally bleeding hemorrhoids) Genitourinary: Reports as per HPI Musculoskeletal: Reports as per HPI Integumentary: Reports as per HPI Neurological: Reports memory loss Endocrine: Reports as per HPI, Reports high blood sugars Past Medical History Past Medical History: Atrial Fibrillation, Diabetes Mellitus, Hyperlipidemia, Hypertension, Renal Disease, Vascular Disorder Additional Past Medical History / Comment(s): Per past medical record pt has hx CHF/pulmonary htn but pt/spouse do not recall this, IDDM type II, chronic renal disease, lower GI bleed pt thinks attributed to hemorrhoids, PVD, past L lower leg wound-healed, occasional bilateral lower leg edema, back pain, 2010 head trauma/contusion with L sided symptoms/seizure-no residual, past heavy drinking but quit in 2005. History of Any Multi-Drug Resistant Organisms: None Reported Past Surgical History: Hernia Repair Additional Past Surgical History / Comment(s): R inguinal hernia repair, colonoscopy, bilateral cataract removals/lens implant, pt unsure if had tonsillectomy. Past Anesthesia/Blood Transfusion Reactions: No Reported Reaction Smoking Status: Former smoker - Past Family History Mother Family Medical History: Hypertension Father History Unknown: Yes Family Medical History: No Reported History Medications and Allergies Home Medications Medication Instructions Recorded Confirmed Type INSULIN ASPART (NovoLOG) [NovoLOG] See Protocol SQ AC-TID 11/01/14 06/02/20 History Insulin Detemir (Levemir) [Levemir] 36 unit SQ DAILY 11/01/14 06/02/20 History Metoprolol Tartrate [Lopressor] 50 mg PO BID 11/01/14 06/02/20 History Simvastatin [Zocor] 20 mg PO HS 11/01/14 06/02/20 History metFORMIN HCL [Glucophage] 500 mg PO BID 11/01/14 06/02/20 History Calcitriol [Rocaltrol] 0.25 mcg PO WE@2100 06/02/20 06/02/20 History Diltiazem HCl [Diltiazem HCl 24Hr 180 mg PO DAILY 06/02/20 06/02/20 History ER] Allergies Allergy/AdvReac Type Severity Reaction Status Date / Time No Known Allergies Allergy Verified 06/02/20 12:37 Physical Exam Osteopathic Statement: *. No significant issues noted on an osteopathic structural exam other than those noted in the History and Physical/Consult. Vitals: Vital Signs Temp Pulse Resp BP Pulse Ox 06/03/20 09:00 111 H 19 94 L 06/03/20 08:00 124 H 27 H 105/77 95 06/03/20 07:46 18 06/03/20 07:00 138 H 18 106/73 96 06/03/20 06:00 135 H 21 112/73 97 06/03/20 05:00 104 H 17 115/69 95 06/03/20 04:00 98.2 F 116 H 18 114/65 96 06/03/20 03:00 100 27 H 106/57 95 06/03/20 02:00 82 19 104/62 94 L 06/03/20 01:00 96 19 105/66 95 06/03/20 00:00 97.9 F 94 20 106/75 95 06/02/20 23:00 108 H 22 113/64 96 06/02/20 22:30 95 20 114/68 95 06/02/20 22:00 94 18 111/59 95 06/02/20 21:30 106 H 22 111/73 94 L 06/02/20 21:00 96 24 100/74 95 06/02/20 20:30 107 H 24 127/98 95 06/02/20 20:00 97.6 F 120 H 21 121/72 96 06/02/20 19:00 93 23 117/71 98 06/02/20 18:30 82 25 H 103/65 98 06/02/20 18:00 80 16 108/56 97 06/02/20 17:30 80 27 H 94/57 97 06/02/20 17:00 97.7 F 82 23 109/69 98 06/02/20 16:35 94 22 102/58 96 06/02/20 16:00 98.5 F 94 22 116/66 95 06/02/20 14:55 122 H 20 121/90 98 06/02/20 14:02 101 H 22 102/75 96 06/02/20 13:03 108 H 23 117/72 98 06/02/20 12:00 122 H 22 101/78 98 Intake and Output 06/02/20 06/03/20 06/03/20 22:59 06:59 14:59 Intake Total 0710 715 0140 Output Total 260 200 0 Balance 7918 523 0646 Intake: IV 780 910 260 Sodium Chloride 0.9% 1, 780 910 260 000 ml @ 130 mls/hr IV . Q7H42M [facility] Rx#:[id number] Intake, IV Titration 600 Amount Piperacillin-Tazobactam 3 100 .375 gm In Sodium Chloride 0.9% 100 ml @ 25 mls/hr IVPB Q8HR [facility] Rx# :[id number] Vancomycin 1,750 mg In 500 Sodium Chloride 0.9% 500 ml 500 ml @ 167 mls/hr IVPB Q16H [facility] Rx#: [id number] Oral 1200 360 Output: Urine 260 200 0 Other: Voiding Method Urinal Urinal Urinal # Voids 1 1 # Bowel Movements 1 1 1 Weight 105.097 kg General: [Patient awake, alert and oriented times 3. Patient in no acute distress.] HEENT: [PERRL. EOMI. No pharyngeal erythema or exudate.] Neck: [No adenopathy.] Cardiac: [Heart regular in rate and rhythm. No S3. No S4. No clicks, rubs. No murmur.] Lungs: [Clear to auscultation bilaterally.] Abdomen: [No mass. No organomegaly. Bowel sounds presnt and normoactive in all 4 quadrants.] Extremes: [1+ pitting edema no cyanosis no claudication normal pulses] : Normal male genitalia Musculoskeletal: [No joint erythema, edema or tenderness.] Skin: [No rash.] Neurologic: [No lateralizing deficits. CN II - XII grossly intact.] Lymphatic: [No adenopathy.] Results CBC & Chem 7: 06/03/20 03:29 06/03/20 03:29 Labs: Abnormal Lab Results - Last 24 Hours (Table) 06/02/20 06/02/20 06/02/20 Range/Units 11:58 11:58 11:58 WBC 22.9 H (3.8-10.6) k/uL RBC (4.30-5.90) m/uL Hgb (13.0-17.5) gm/dL Hct (39.0-53.0) % MCHC (31.0-37.0) g/dL Neutrophils # 20.6 H (1.3-7.7) k/uL PT >130.0 H (9.0-12.0) sec INR >10.0 H* (<1.2) APTT 80.1 H (22.0-30.0) sec Sodium 134 L (137-145) mmol/L Potassium 5.3 H (3.5-5.1) mmol/L Carbon Dioxide 21 L (22-30) mmol/L BUN 27 H (9-20) mg/dL Glucose 174 H (74-99) mg/dL POC Glucose (mg/dL) (75-99) mg/dL Plasma Lactic Acid Brenton (0.7-2.0) mmol/L AST 173 H (17-59) U/L ALT 91 H (4-49) U/L Alkaline Phosphatase 965 H (38-126) U/L Total Protein 5.7 L (6.3-8.2) g/dL Albumin 2.5 L (3.5-5.0) g/dL Urine Blood (Negative) Urine RBC (0-5) /hpf Hyaline Casts (0-2) /lpf Urine Mucus (None) /hpf 06/02/20 06/02/20 06/02/20 Range/Units 11:58 15:09 16:49 WBC (3.8-10.6) k/uL RBC (4.30-5.90) m/uL Hgb (13.0-17.5) gm/dL Hct (39.0-53.0) % MCHC (31.0-37.0) g/dL Neutrophils # (1.3-7.7) k/uL PT (9.0-12.0) sec INR (<1.2) APTT (22.0-30.0) sec Sodium (137-145) mmol/L Potassium (3.5-5.1) mmol/L Carbon Dioxide (22-30) mmol/L BUN (9-20) mg/dL Glucose (74-99) mg/dL POC Glucose (mg/dL) 107 H (75-99) mg/dL Plasma Lactic Acid Brenton 5.7 H* 4.4 H* (0.7-2.0) mmol/L AST (17-59) U/L ALT (4-49) U/L Alkaline Phosphatase (38-126) U/L Total Protein (6.3-8.2) g/dL Albumin (3.5-5.0) g/dL Urine Blood (Negative) Urine RBC (0-5) /hpf Hyaline Casts (0-2) /lpf Urine Mucus (None) /hpf 06/02/20 06/02/20 06/02/20 Range/Units 18:29 18:38 19:46 WBC (3.8-10.6) k/uL RBC (4.30-5.90) m/uL Hgb (13.0-17.5) gm/dL Hct (39.0-53.0) % MCHC (31.0-37.0) g/dL Neutrophils # (1.3-7.7) k/uL PT 38.5 H (9.0-12.0) sec INR 3.9 H (<1.2) APTT 43.1 H (22.0-30.0) sec Sodium (137-145) mmol/L Potassium (3.5-5.1) mmol/L Carbon Dioxide (22-30) mmol/L BUN (9-20) mg/dL Glucose (74-99) mg/dL POC Glucose (mg/dL) (75-99) mg/dL Plasma Lactic Acid Brenton 3.0 H* (0.7-2.0) mmol/L AST (17-59) U/L ALT (4-49) U/L Alkaline Phosphatase (38-126) U/L Total Protein (6.3-8.2) g/dL Albumin (3.5-5.0) g/dL Urine Blood Trace H (Negative) Urine RBC 7 H (0-5) /hpf Hyaline Casts 39 H (0-2) /lpf Urine Mucus Rare H (None) /hpf 06/02/20 06/02/20 06/03/20 Range/Units 21:26 22:24 00:15 WBC (3.8-10.6) k/uL RBC (4.30-5.90) m/uL Hgb (13.0-17.5) gm/dL Hct (39.0-53.0) % MCHC (31.0-37.0) g/dL Neutrophils # (1.3-7.7) k/uL PT (9.0-12.0) sec INR (<1.2) APTT (22.0-30.0) sec Sodium (137-145) mmol/L Potassium (3.5-5.1) mmol/L Carbon Dioxide (22-30) mmol/L BUN (9-20) mg/dL Glucose (74-99) mg/dL POC Glucose (mg/dL) 157 H (75-99) mg/dL Plasma Lactic Acid Brenton 3.7 H* 3.9 H* (0.7-2.0) mmol/L AST (17-59) U/L ALT (4-49) U/L Alkaline Phosphatase (38-126) U/L Total Protein (6.3-8.2) g/dL Albumin (3.5-5.0) g/dL Urine Blood (Negative) Urine RBC (0-5) /hpf Hyaline Casts (0-2) /lpf Urine Mucus (None) /hpf 06/03/20 06/03/20 06/03/20 Range/Units 03:29 03:29 03:29 WBC 19.4 H (3.8-10.6) k/uL RBC 3.75 L (4.30-5.90) m/uL Hgb 11.2 L (13.0-17.5) gm/dL Hct 36.5 L (39.0-53.0) % MCHC 30.7 L (31.0-37.0) g/dL Neutrophils # 16.9 H (1.3-7.7) k/uL PT 18.1 H (9.0-12.0) sec INR 1.9 H (<1.2) APTT (22.0-30.0) sec Sodium 132 L (137-145) mmol/L Potassium (3.5-5.1) mmol/L Carbon Dioxide (22-30) mmol/L BUN 29 H (9-20) mg/dL Glucose 120 H (74-99) mg/dL POC Glucose (mg/dL) (75-99) mg/dL Plasma Lactic Acid Brenton (0.7-2.0) mmol/L AST (17-59) U/L ALT (4-49) U/L Alkaline Phosphatase (38-126) U/L Total Protein (6.3-8.2) g/dL Albumin (3.5-5.0) g/dL Urine Blood (Negative) Urine RBC (0-5) /hpf Hyaline Casts (0-2) /lpf Urine Mucus (None) /hpf 06/03/20 Range/Units 07:04 WBC (3.8-10.6) k/uL RBC (4.30-5.90) m/uL Hgb (13.0-17.5) gm/dL Hct (39.0-53.0) % MCHC (31.0-37.0) g/dL Neutrophils # (1.3-7.7) k/uL PT (9.0-12.0) sec INR (<1.2) APTT (22.0-30.0) sec Sodium (137-145) mmol/L Potassium (3.5-5.1) mmol/L Carbon Dioxide (22-30) mmol/L BUN (9-20) mg/dL Glucose (74-99) mg/dL POC Glucose (mg/dL) 126 H (75-99) mg/dL Plasma Lactic Acid Brenton (0.7-2.0) mmol/L AST (17-59) U/L ALT (4-49) U/L Alkaline Phosphatase (38-126) U/L Total Protein (6.3-8.2) g/dL Albumin (3.5-5.0) g/dL Urine Blood (Negative) Urine RBC (0-5) /hpf Hyaline Casts (0-2) /lpf Urine Mucus (None) /hpf Thrombosis Risk Factor Assmnt - Choose All That Apply Any of the Below Risk Factors Present?: Yes Each Factor Represents 1 point: Abnormal pulmonary function (COPD), Obesity (BMI >25), Sepsis (< 1month) Other Risk Factors: Yes Each Risk Factor Represents 2 Points: Age 61-74 years, Malignancy (New appearing metastasis in the liver workup in progress, patient is currently Coumadin toxic) Other congenital or acquired thrombophilia - If yes, enter type in comment: No Thrombosis Risk Factor Assessment Total Risk Factor Score: 7 Thrombosis Risk Factor Assessment Level: High Risk Assessment and Plan (1) Coumadin toxicity Current Visit: Yes Status: Acute Code(s): T45.511A - POISONING BY ANTICOAGULANTS, ACCIDENTAL, INIT SNOMED Code(s): 20165543 (2) Metastasis to liver of unknown origin Current Visit: Yes Status: Acute Code(s): C78.7 - SECONDARY MALIG NEOPLASM OF LIVER AND INTRAHEPATIC BILE DUCT; C80.1 - MALIGNANT (PRIMARY) NEOPLASM, UNSPECIFIED SNOMED Code(s): 450495090 (3) Gallbladder contraction Current Visit: Yes Status: Acute Code(s): K82.0 - OBSTRUCTION OF GALLBLADDER SNOMED Code(s): 098730707 (4) Lactic acid acidosis Current Visit: Yes Status: Acute Code(s): E87.2 - ACIDOSIS SNOMED Code(s): 05386238 (5) Sepsis Current Visit: Yes Status: Acute Code(s): A41.9 - SEPSIS, UNSPECIFIED ORGANISM SNOMED Code(s): 13529379 (6) Rectal bleeding Current Visit: No Status: Acute Code(s): K62.5 - HEMORRHAGE OF ANUS AND RECTUM SNOMED Code(s): 52590727 (7) Venous insufficiency of leg Current Visit: No Status: Acute Code(s): I87.2 - VENOUS INSUFFICIENCY (CHRONIC) (PERIPHERAL) SNOMED Code(s): 188172699 Plan: Patient was admitted to the intensive care unit Cirrhosis of the liver based on ultrasound criteria Abnormal liver function tests Mild lactic acidosis secondary to liver disease Nonspecific leukocytosis no evidence of infection Chronic A. fib by history rate controlled Coumadin toxicity INR rate are than 10 on admission without evidence of acute bleed Diabetes mellitus by history Hypertension by history Known peripheral vascular disease Congestive heart failure with secondary pulmonary hypertension Remote history of alcoholism quit drinking in 2005 CT chest and abdomen and pelvis pending Awaiting CEA and CA-19-9 levels in addition to AFP pending Hold Coumadin, vitamin K given Interventional radiology to perform a liver biopsy Time with Patient: Greater than 30
[2020-06-03 13:55] LABS: Hemoglobin A1C 5.5 % (4.0-6.0)
[2020-06-03 16:57] LABS: Glucose,Whole Blood 168 mg/dL (75-99)
[2020-06-03 20:32] LABS: Glucose,Whole Blood 172 mg/dL (75-99)
[2020-06-04] MEDS: PIPERACILLIN-TAZOBACTAM 3.375 GM in SODIUM CHLORIDE 0.9% 100 ML IVPB SCH ×2 (01:35→07:49)
[2020-06-04] MEDS: ACETAMINOPHEN TAB 325 MG TAB PO PRN ×4 (01:41→20:02)
[2020-06-04 05:36] LABS: Potassium 4.6 mmol/L (3.5-5.1)
[2020-06-04 05:37] LABS: Calcium 8.5 mg/dL (8.4-10.2)
[2020-06-04 05:45] LABS: Basophils % (A) 0 %; Eosinophils # (A) 0.2 k/uL (0-0.7); Eosinophils % (A) 1 %; HCT 37.9 % (39.0-53.0); HGB 11.7 gm/dL (13.0-17.5); Hypochromasia Moderate; Lymphocytes # (A) 1.7 k/uL (1.0-4.8); Lymphocytes % (A) 9 %; MCH 30.2 pg (25.0-35.0); MCHC 30.7 g/dL (31.0-37.0); MCV 98.2 fL (80.0-100.0); Mean Platelet Volume 9.1; Monocytes # (A) 0.7 k/uL (0-1.0); Monocytes % (A) 4 %; Neutrophils # (A) 15.6 k/uL (1.3-7.7); Neutrophils % (A) 85 %; Platelet Count 291 k/uL (150-450); RBC 3.86 m/uL (4.30-5.90); RDW 14.5 % (11.5-15.5); WBC 18.3 k/uL (3.8-10.6)
[2020-06-04 07:13] LABS: Glucose,Whole Blood 132 mg/dL (75-99)
[2020-06-04] MEDS: INSULIN ASPART (NovoLOG) 100 UNIT/ML VIAL SQ SCH ×4 (07:33→21:13)
[2020-06-04] MEDS: METOPROLOL TARTRATE 50 MG TAB PO SCH ×2 (07:48→20:01)
[2020-06-04] MEDS: DILTIAZEM CD 180 MG CAP.ER.24H PO SCH (07:48)
[2020-06-04 08:47] LABS: INR 1.6 (<1.2); Prothrombin Time 15.6 sec (9.0-12.0)
[2020-06-04] MEDS ORDERED: DILTIAZEM CD 180 MG CAP.ER.24H PO STA (09:48)
--- NOTE | 2020-06-04 11:04 | P.PN ---
Subjective Progress Note Date: 06/04/20 75-year-old female patient who presented emergency department because of generalized weakness and fatigue. The patient's is known to have diabetes mellitus in addition to chronic atrial fibrillation. 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 The blood work that was done and the ED was quite abnormal. The patient was toxic on Coumadin with an elevated INR of more than 10 without signs of any acute bleeding. Also, the patient had a white cell count of 22.9 and a lactate level of 5.7.He also abnormal with an ALT of 91, AST of 173 and bilirubin of 1.2 with an alk phos of 965. ProBNP level was 3460. Total protein was 5.7 with an albumin level of 2.5. This patient does no t have any nausea or vomiting. No reported abdominal pain. No reported fever chills or night sweats. No reported cough or sputum production or chest that is so wheezing. No reported falls. Trace edema lower extremities. No headaches. No neck stiffness. No altered mentation. He has diffuse body soreness and body aches it's been going on for several months. He takes a statin medication. He soreness is throughout his body mainly in his upper and lower back area bilaterally. No recent falls. No open wounds or sores or ulceration. No dysuria frequency or urgency.Ultrasound of the liver showed cirrhotic heterogeneous liver with multiple liver masses likely representing diffuse metastatic disease. There is also gallbladder wall thickening due to contracted state of the gallbladder. On 06/03/2020, the patient is being seen in follow-up in the intensive care unit. The patient is calm and comfortable and has no specific complaints. Note that the patient's was hospitalized for some constitutional symptoms addition lactic acidosis of Coumadin toxicity. The Coumadin toxicity was reversed and the patient's INR is down to 1.9. He'll be kept off Coumadin for now. At the same time, further investigation showed the possibility of a metastatic liver involvement and the patient will need further investigation. CAT scan of the chest abdomen and pelvis was completed and the CAT scan showed enlarged extensive heterogeneous liver compatible with metastatic disease. Note that t here was large lesions in the liver up to 4 cm in size and small amount of ascites. The white cell count is at 19.4. Hemoglobin is 11.2. INR is down to 1.9. Her function is stable with a creatinine of 1.2. The patient's lactic acid level is at 3.9. Calcium is at 8.6. He is tolerating his diet. No nausea. No vomiting. No diarrhea. No abdominal pain. No other complaints otherwise for now. 06/04/2020, the patient is calm and comfortable following commands and answering questions appropriately. He is still a bit tachycardic related to his atrial fibrillation and the necessity medication adjustments were done in regards to the Cardizem and metoprolol. Otherwise, the patient has no significant abdominal distention. No altered mentation. No abdominal pain. No nausea or vomiting. No diarrhea or abdominal pain. The patient had some tumor markers and the CEA and CA-19-9 levels came back within normal limits. Nevertheless, the alpha-fetoprotein level was quite elevated and the patient will need a fine- needle aspirate of the liver mass for tissue diagnosis. The patient has been off Coumadin and his repeat INR is still pending for now. No other new complaints for now. Hematology oncology consultation was placed. The patient also be seen by interventional radiology for possible FNA of the liver mass tomorrow. Objective - Vital Signs Vital signs: Vital Signs Temp 97.6 F 06/04/20 04:00 Pulse 112 H 06/04/20 07:00 Resp 15 06/04/20 07:00 BP 120/79 06/04/20 08:00 Pulse Ox 96 06/04/20 07:00 Intake & Output 06/03/20 06/04/20 06/04/20 18:59 06:59 18:59 Intake Total 2140 801 125 Output Total 0 0 Balance 2140 801 125 Weight 106.1 kg Intake: IV 280 601 100 Piperacillin-Tazobactam 3 100 100 .375 gm In Sodium Chloride 0.9% 100 ml @ 25 mls/hr IVPB Q8HR [facility] Rx# :[id number] Sodium Chloride 0.9% 1, 280 000 ml @ 130 mls/hr IV . Q7H42M [facility] Rx#:[id number] Vancomycin 1,750 mg In 501 Sodium Chloride 0.9% 500 ml 500 ml @ 167 mls/hr IVPB Q16H [facility] Rx#: [id number] Intake, IV Titration 780 25 Amount Piperacillin-Tazobactam 3 200 25 .375 gm In Sodium Chloride 0.9% 100 ml @ 25 mls/hr IVPB Q8HR [facility] Rx# :[id number] Sodium Chloride 0.9% 1, 80 000 ml @ 130 mls/hr IV . Q7H42M [facility] Rx#:[id number] Vancomycin 1,750 mg In 500 Sodium Chloride 0.9% 500 ml 500 ml @ 167 mls/hr IVPB Q16H [facility] Rx#: [id number] Oral 1080 200 Output: Urine 0 0 Other: Voiding Method Toilet Toilet Toilet # Voids 1 1 1 # Bowel Movements 1 0 1 - Exam The patient appeared well nourished and normally developed. Vital signs as documented. Head exam is unremarkable. No scleral icterus or corneal arcus noted. Neck is without jugular venous distension, thyromegaly, or carotid bruits. Carotid upstrokes are brisk bilaterally. Lungs are clear to auscultation and percussion. Cardiac exam reveals the PMI to be normally sized and situated. Rhythm is regular. First and second heart sounds normal. No murmurs, rubs or gallops. Abdominal exam reveals normal bowel sounds, no masses, no organomegaly and no aortic enlargement. Extremities are edematous and the patient has +1 pitting edema in lower extremities bilaterally and both femoral and pedal pulses are normal.Neurologically, the patient is awake and alert and the patient does not have any focal neurological deficit. Cranial nerves are essentially intact.Examination of the skin revealed no evidence of significant rashes, suspicious appearing nevi or other concerning lesions. - Labs CBC & Chem 7: 06/04/20 04:53 06/04/20 04:53 Labs: Abnormal Lab Results - Last 24 Hours (Table) 06/03/20 06/03/20 06/03/20 Range/Units 03:29 11:51 16:56 WBC (3.8-10.6) k/uL RBC (4.30-5.90) m/uL Hgb (13.0-17.5) gm/dL Hct (39.0-53.0) % MCHC (31.0-37.0) g/dL Neutrophils # (1.3-7.7) k/uL PT (9.0-12.0) sec INR (<1.2) Sodium (137-145) mmol/L BUN (9-20) mg/dL Glucose (74-99) mg/dL POC Glucose (mg/dL) 206 H 168 H (75-99) mg/dL Tumor Marker AFP 519.2 H (0.0-7.9) ng/mL 06/03/20 06/04/20 06/04/20 Range/Units 20:30 04:53 04:53 WBC 18.3 H (3.8-10.6) k/uL RBC 3.86 L (4.30-5.90) m/uL Hgb 11.7 L (13.0-17.5) gm/dL Hct 37.9 L (39.0-53.0) % MCHC 30.7 L (31.0-37.0) g/dL Neutrophils # 15.6 H (1.3-7.7) k/uL PT (9.0-12.0) sec INR (<1.2) Sodium 135 L (137-145) mmol/L BUN 24 H (9-20) mg/dL Glucose 127 H (74-99) mg/dL POC Glucose (mg/dL) 172 H (75-99) mg/dL Tumor Marker AFP (0.0-7.9) ng/mL 06/04/20 06/04/20 Range/Units 07:12 08:20 WBC (3.8-10.6) k/uL RBC (4.30-5.90) m/uL Hgb (13.0-17.5) gm/dL Hct (39.0-53.0) % MCHC (31.0-37.0) g/dL Neutrophils # (1.3-7.7) k/uL PT 15.6 H (9.0-12.0) sec INR 1.6 H (<1.2) Sodium (137-145) mmol/L BUN (9-20) mg/dL Glucose (74-99) mg/dL POC Glucose (mg/dL) 132 H (75-99) mg/dL Tumor Marker AFP (0.0-7.9) ng/mL Microbiology - Last 24 Hours (Table) 06/02/20 14:16 Blood Culture - Preliminary Blood No Growth after 24 hours Assessment and Plan Plan: 1 generalized weakness, constipation symptoms with weight loss, loss of appetite and body aches, consider underlying metastatic disease/malignancy especially the patient had abnormal LFTs and the patient has an ultrasound of the abdomen that showed multiple hepatic lesions consistent with metastatic disease. The alpha- fetoprotein is elevated and I suspect a primary hepatocellular carcinoma on top of chronic liver cirrhosis. The rest of the tumor markers were negative. Patient is currently off anticoagulation. INR is down to 1.6 and the patient was asked to be seen by interventional radiology for a possible liver biopsy to be done within next 24 hours. 2 cirrhotic liver based on ultrasound criteria, awaiting hepatitis profile 3 abnormal LFTs 4 mild lactic acidosis likely secondary to liver disease 5 leukocytosis, nonspecific, noninfectious 6 chronic atrial fibrillation, rate controlled 7 supratherapeutic PT/INR, INR of more than 10 without evidence of an acute bleed 8 diabetes mellitus 9 hypertension 10 hyperlipidemia. 11 peripheral vascular disease 12 CHF with secondary pulmonary hypertension 13 remote history of head trauma/contusion 14 remote history of alcoholism quit drinking 2005 Plan The patient's IV fluid To KVO Increase the Cardizem to 360 mg on a daily basis Continue metoprolol 50 mg by mouth twice a day CAT scan of the chest abdomen and pelvis was noted Awaiting CEA and CA 199 were normal alpha-fetoprotein level was elevated and consider hepatocellular carcinoma Pancreatic enzymes were within normal limits Hold Coumadin, INR is down to 1.6 Consult interventional radiology for liver biopsy Consult hematology oncology Transferred to medical surgical floor We'll continue to follow
[2020-06-04 11:31] LABS: Glucose,Whole Blood 140 mg/dL (75-99)
--- NOTE | 2020-06-04 11:58 | P.PN ---
Subjective Progress Note Date: 06/04/20 Principal diagnosis: Undiagnosed metastatic disease to the liver 75-year-old male presented to the hospital at the request of Dr. Muller. The ER this patient had an elevated INR of 10 elevated liver enzymes ALP of 91 AST 173 bilirubin of 1.2 alkaline phosphatase was 965, his lactic acid was 5.7. Lactic acid has normalized his INR has normalized CT of the abdomen confirms metastatic-type disease to the liver CEA was neg CA-19-9 also negative , alpha- fetoprotein slightly elevated again CT of the abdomen and chest and pelvis demonstrated a bilateral pleural effusion small of the chest there were metastases to the liver, and the pelvis appeared unremarkable the abdomen also pancreas appeared negative for mass. Objective - Vital Signs Vital signs: Vital Signs Temp 97.6 F 06/04/20 04:00 Pulse 109 H 06/04/20 11:00 Resp 18 06/04/20 11:00 BP 119/71 06/04/20 10:00 Pulse Ox 94 L 06/04/20 11:00 Intake & Output 06/03/20 06/04/20 06/04/20 18:59 06:59 18:59 Intake Total 2140 801 125 Output Total 0 0 Balance 2140 801 125 Weight 106.1 kg Intake: IV 280 601 100 Piperacillin-Tazobactam 3 100 100 .375 gm In Sodium Chloride 0.9% 100 ml @ 25 mls/hr IVPB Q8HR [facility] Rx# :[id number] Sodium Chloride 0.9% 1, 280 000 ml @ 130 mls/hr IV . Q7H42M [facility] Rx#:[id number] Vancomycin 1,750 mg In 501 Sodium Chloride 0.9% 500 ml 500 ml @ 167 mls/hr IVPB Q16H [facility] Rx#: [id number] Intake, IV Titration 780 25 Amount Piperacillin-Tazobactam 3 200 25 .375 gm In Sodium Chloride 0.9% 100 ml @ 25 mls/hr IVPB Q8HR [facility] Rx# :[id number] Sodium Chloride 0.9% 1, 80 000 ml @ 130 mls/hr IV . Q7H42M [facility] Rx#:[id number] Vancomycin 1,750 mg In 500 Sodium Chloride 0.9% 500 ml 500 ml @ 167 mls/hr IVPB Q16H [facility] Rx#: [id number] Oral 1080 200 Output: Urine 0 0 Other: Voiding Method Toilet Toilet Toilet # Voids 1 1 1 # Bowel Movements 1 0 1 - Exam General: [Patient awake, alert and oriented times 3. Patient in no acute distress.] HEENT: [PERRL. EOMI. No pharyngeal erythema or exudate.] Neck: [No adenopathy.] Cardiac: [Heart regular in rate and rhythm. No S3. No S4. No clicks, rubs. No murmur.] Lungs: [Clear to auscultation bilaterally.] Abdomen: [No mass. No organomegaly. Bowel sounds presnt and normoactive in all 4 quadrants.] Extremes: [1+ pitting edema, no cyanosis no claudication normal pulses] : Normal male genitalia Musculoskeletal: [No joint erythema, edema or tenderness.] Skin: [No rash.] Neurologic: [No lateralizing deficits. CN II - XII grossly intact.] Lymphatic: [No adenopathy.] - Labs CBC & Chem 7: 06/04/20 04:53 06/04/20 04:53 Labs: Abnormal Lab Results - Last 24 Hours (Table) 06/03/20 06/03/20 06/03/20 Range/Units 03:29 11:51 16:56 WBC (3.8-10.6) k/uL RBC (4.30-5.90) m/uL Hgb (13.0-17.5) gm/dL Hct (39.0-53.0) % MCHC (31.0-37.0) g/dL Neutrophils # (1.3-7.7) k/uL PT (9.0-12.0) sec INR (<1.2) Sodium (137-145) mmol/L BUN (9-20) mg/dL Glucose (74-99) mg/dL POC Glucose (mg/dL) 206 H 168 H (75-99) mg/dL Tumor Marker AFP 519.2 H (0.0-7.9) ng/mL 06/03/20 06/04/20 06/04/20 Range/Units 20:30 04:53 04:53 WBC 18.3 H (3.8-10.6) k/uL RBC 3.86 L (4.30-5.90) m/uL Hgb 11.7 L (13.0-17.5) gm/dL Hct 37.9 L (39.0-53.0) % MCHC 30.7 L (31.0-37.0) g/dL Neutrophils # 15.6 H (1.3-7.7) k/uL PT (9.0-12.0) sec INR (<1.2) Sodium 135 L (137-145) mmol/L BUN 24 H (9-20) mg/dL Glucose 127 H (74-99) mg/dL POC Glucose (mg/dL) 172 H (75-99) mg/dL Tumor Marker AFP (0.0-7.9) ng/mL 06/04/20 06/04/20 06/04/20 Range/Units 07:12 08:20 11:29 WBC (3.8-10.6) k/uL RBC (4.30-5.90) m/uL Hgb (13.0-17.5) gm/dL Hct (39.0-53.0) % MCHC (31.0-37.0) g/dL Neutrophils # (1.3-7.7) k/uL PT 15.6 H (9.0-12.0) sec INR 1.6 H (<1.2) Sodium (137-145) mmol/L BUN (9-20) mg/dL Glucose (74-99) mg/dL POC Glucose (mg/dL) 132 H 140 H (75-99) mg/dL Tumor Marker AFP (0.0-7.9) ng/mL Microbiology - Last 24 Hours (Table) 06/02/20 14:16 Blood Culture - Preliminary Blood No Growth after 24 hours Assessment and Plan (1) Coumadin toxicity Narrative/Plan: Normalized Current Visit: Yes Status: Acute Code(s): T45.511A - POISONING BY ANTICOAGULANTS, ACCIDENTAL, INIT SNOMED Code(s): 33609718 (2) Metastasis to liver of unknown origin Current Visit: Yes Status: Acute Code(s): C78.7 - SECONDARY MALIG NEOPLASM OF LIVER AND INTRAHEPATIC BILE DUCT; C80.1 - MALIGNANT (PRIMARY) NEOPLASM, UNSPECIFIED SNOMED Code(s): 063279495 (3) Gallbladder contraction Current Visit: Yes Status: Acute Code(s): K82.0 - OBSTRUCTION OF GALLBLADDER SNOMED Code(s): 403573152 (4) Lactic acid acidosis Narrative/Plan: Also normalized Current Visit: Yes Status: Acute Code(s): E87.2 - ACIDOSIS SNOMED Code(s): 23665110 (5) Sepsis Narrative/Plan: Patient has been fluid resuscitated currently on IV antibiotics appears to be hemodynamically stable Current Visit: Yes Status: Acute Code(s): A41.9 - SEPSIS, UNSPECIFIED ORGANISM SNOMED Code(s): 65594531 (6) Rectal bleeding Narrative/Plan: Persistent but much less than when he was admitted when the INR was elevated Current Visit: No Status: Acute Code(s): K62.5 - HEMORRHAGE OF ANUS AND RECTUM SNOMED Code(s): 64831078 (7) Venous insufficiency of leg Current Visit: No Status: Acute Code(s): I87.2 - VENOUS INSUFFICIENCY (CHRONIC) (PERIPHERAL) SNOMED Code(s): 453195350 Plan: Patient was admitted to the intensive care unit Cirrhosis of the liver based on ultrasound criteria Abnormal liver function tests Mild lactic acidosis secondary to liver disease: Resolved Nonspecific leukocytosis no evidence of infection has also responded increased to 18.3 Chronic A. fib by history rate controlled Coumadin toxicity INR rate are than 10 on admission without evidence of acute bleed: INR is currently 1.6 Diabetes mellitus by history Hypertension by history Known peripheral vascular disease Congestive heart failure with secondary pulmonary hypertension Remote history of alcoholism quit drinking in 2005 CT of the chest demonstrated small pleural effusion , CT of abdomen demonstrated no evidence of disease in the pancreas however this patient has persistent evidence of metastatic disease in the lung, no evidence of mass in the pelvis CEA does not suggest colon cancer, CA-19-9 does not suggest pancreatic cancer, alpha-fetoprotein slightly elevated suggestive of primary liver carcinoma Patient's appetite is improved Patient is stable enough at this time to be moved to a selective care bed Interventional radiology to perform a liver biopsy tomorrow or Friday Time with Patient: Greater than 30
[2020-06-04] MEDS: VANCOMYCIN 1,750 MG in SODIUM CHLORIDE 0.9% 500 ML 500 ML IVPB SCH (13:52)
[2020-06-04 16:59] LABS: Glucose,Whole Blood 144 mg/dL (75-99)
[2020-06-04 21:22] LABS: Glucose,Whole Blood 160 mg/dL (75-99)
[2020-06-05] MEDS: ACETAMINOPHEN TAB 325 MG TAB PO PRN ×4 (03:21→21:41)
[2020-06-05 04:48] LABS: Basophils % (A) 0 %; Eosinophils # (A) 0.2 k/uL (0-0.7); Eosinophils % (A) 1 %; HCT 37.1 % (39.0-53.0); HGB 11.4 gm/dL (13.0-17.5); Hypochromasia Moderate; Lymphocytes # (A) 1.6 k/uL (1.0-4.8); Lymphocytes % (A) 9 %; MCH 30.4 pg (25.0-35.0); MCHC 30.7 g/dL (31.0-37.0); MCV 98.9 fL (80.0-100.0); Mean Platelet Volume 8.7; Monocytes # (A) 0.6 k/uL (0-1.0); Monocytes % (A) 4 %; Neutrophils # (A) 15.2 k/uL (1.3-7.7); Neutrophils % (A) 86 %; Platelet Count 252 k/uL (150-450); RBC 3.75 m/uL (4.30-5.90); RDW 14.6 % (11.5-15.5); WBC 17.8 k/uL (3.8-10.6)
[2020-06-05 04:57] LABS: ALT 83 U/L (4-49); AST 149 U/L (17-59); African American GFR (CKD) >90 (>60 ml/min/1.73 sqM); Alkaline Phosphatase 737 U/L (38-126); Anion Gap 4 mmol/L; Blood Urea Nitrogen 21 mg/dL (9-20); Calcium 8.5 mg/dL (8.4-10.2); Carbon Dioxide 22 mmol/L (22-30); Chloride 109 mmol/L (98-107); Glucose 112 mg/dL (74-99); INR 1.8 (<1.2); Non-African American GFR(CKD) 80 (>60 ml/min/1.73 sqM); Potassium 4.3 mmol/L (3.5-5.1); Prothrombin Time 17.2 sec (9.0-12.0); Sodium 135 mmol/L (137-145)
[2020-06-05] MEDS ORDERED: VANCOMYCIN TROUGH DUE 1 EACH MISC MISCELLANE ONE (05:00)
[2020-06-05] MEDS: VANCOMYCIN 1,750 MG in SODIUM CHLORIDE 0.9% 500 ML 500 ML IVPB SCH ×2 (05:28→21:36)
[2020-06-05 07:18] LABS: Glucose,Whole Blood 119 mg/dL (75-99)
[2020-06-05] MEDS: INSULIN ASPART (NovoLOG) 100 UNIT/ML VIAL SQ SCH ×4 (09:01→21:35)
[2020-06-05] MEDS: METOPROLOL TARTRATE 50 MG TAB PO SCH ×2 (09:04→21:35)
[2020-06-05] MEDS: DILTIAZEM CD 180 MG CAP.ER.24H PO SCH (09:04)
--- NOTE | 2020-06-05 09:21 | XR ---
EXAMINATION TYPE: XR chest 1V portable DATE OF EXAM: 06/05/2020 CLINICAL HISTORY: Shortness of breath TECHNIQUE: Portable upright view of the chest obtained COMPARISON: 06/02/[address] abdomen pelvis 06/02/2020 FINDINGS: The cardiomediastinal silhouette is within normal limits for size. Pulmonary vasculature i s normal. There is a focal airspace opacity of the right lung base and small right pleural effusion. There is haziness of the left costophrenic angle, likely atelectasis. No pneumothorax. Osseous struc tures are intact. IMPRESSION: 1. Increased size of right basilar airspace opacity and small right pleural effusion versus 06/02/2020 comparison. 2. Haziness of the left costophrenic angle likely atelectasis.
--- NOTE | 2020-06-05 10:47 | P.CONS ---
History of Present Illness - Reason for Consult Consult date: 06/05/20 Liver lesions Requesting physician: Franca Danielle - Chief Complaint Weakness, fatigue, coagulopathy - History of Present Illness Mr. Howard is a very pleasant 75-year-old male with a past medical history of type 2 diabetes mellitus, cardiovascular disease hyperlipidemia and atrial fibrillation who we've been asked to see in regards to multiple lesions of the liver. Patient was admitted with complaints of progressive weakness, fatigue, found to have an INR greater than 10 on admission. He is on Coumadin for atrial fibrillation. Has complaints of hemorrhoids and some rectal bleeding, no other bleeding to report. Has no personal history of cancer, liver disease, hepatitis, he quit drinking alcohol in 2005, denies nausea, vomiting, he has had some intentional weight loss. He states that his abdominal girth has been increasing, mild swelling in the legs, noted more extremity swelling since admission in the arms. No fevers, pain, SEAMUS or other c/o. Review of Systems 14 point review of systems is negative except as stated in HPI Past Medical History Past Medical History: Atrial Fibrillation, Diabetes Mellitus, Hyperlipidemia, Hypertension, Renal Disease, Vascular Disorder Additional Past Medical History / Comment(s): Per past medical record pt has hx CHF/pulmonary htn but pt/spouse do not recall this, IDDM type II, chronic renal disease, lower GI bleed pt thinks attributed to hemorrhoids, PVD, past L lower leg wound-healed, occasional bilateral lower leg edema, back pain, 2011 head trauma/contusion with L sided symptoms/seizure-no residual, past heavy drinking but quit in 2005. History of Any Multi-Drug Resistant Organisms: None Reported Past Surgical History: Hernia Repair Additional Past Surgical History / Comment(s): R inguinal hernia repair, colonoscopy, bilateral cataract removals/lens implant, pt unsure if had tonsillectomy. Past Anesthesia/Blood Transfusion Reactions: No Reported Reaction Smoking Status: Former smoker - Past Family History Mother Family Medical History: Hypertension Father History Unknown: Yes Family Medical History: No Reported History Medications and Allergies Home Medications Medication Instructions Recorded Confirmed Type INSULIN ASPART (NovoLOG) [NovoLOG] See Protocol SQ AC-TID 11/01/14 06/02/20 History Insulin Detemir (Levemir) [Levemir] 36 unit SQ DAILY 11/01/14 06/02/20 History Metoprolol Tartrate [Lopressor] 50 mg PO BID 11/01/14 06/02/20 History Simvastatin [Zocor] 20 mg PO HS 11/01/14 06/02/20 History metFORMIN HCL [Glucophage] 500 mg PO BID 11/01/14 06/02/20 History Calcitriol [Rocaltrol] 0.25 mcg PO WE@2100 06/02/20 06/02/20 History Diltiazem HCl [Diltiazem HCl 24Hr 180 mg PO DAILY 06/02/20 06/02/20 History ER] Allergies Allergy/AdvReac Type Severity Reaction Status Date / Time No Known Allergies Allergy Verified 06/02/20 12:37 Physical Exam Vitals: Vital Signs Temp Pulse Resp BP Pulse Ox 06/05/20 07:00 121 H 18 113/73 97 06/05/20 06:00 102 H 23 111/70 95 06/05/20 05:00 102 H 18 115/69 95 06/05/20 04:00 97.6 F 105 H 17 113/76 96 06/05/20 03:00 99 17 103/77 97 06/05/20 02:00 93 17 113/72 96 06/05/20 01:00 93 21 98/71 97 06/05/20 00:00 97.2 F L 92 25 H 107/68 96 06/04/20 23:00 85 29 H 123/77 96 06/04/20 22:00 100 11 L 123/67 94 L 06/04/20 21:47 101 H 15 123/67 93 L 06/04/20 21:00 110 H 19 123/93 96 06/04/20 20:00 97.7 F 130 H 30 H 112/71 97 06/04/20 19:00 94 9 L 107/78 94 L 06/04/20 18:00 101 H 19 110/65 97 06/04/20 17:00 95 18 91/61 96 06/04/20 16:00 94 23 92/56 97 06/04/20 15:00 87 26 H 104/62 96 06/04/20 14:00 83 22 91/60 96 06/04/20 13:00 83 20 100/88 95 06/04/20 12:00 115 H 18 113/62 96 06/04/20 11:48 18 06/04/20 11:00 109 H 18 94 L Intake and Output 06/04/20 06/05/20 06/05/20 22:59 06:59 14:59 Intake Total 860 600 Output Total 0 0 0 Balance 860 600 0 Intake: Oral 860 600 Output: Urine 0 0 0 Other: Voiding Method Toilet Toilet # Voids 1 1 Weight 106.8 kg - Constitutional Chest and neck area are thin, abdomen is distended General appearance: cooperative, no acute distress - EENT Eyes: anicteric sclerae, EOMI ENT: hearing grossly normal, normal oropharynx - Neck Neck: no lymphadenopathy - Respiratory Respiratory: bilateral: CTA, diminished (Bases) - Cardiovascular Left arm has 1+ swelling Rhythm: irregularly irregular Heart sounds: normal: S1, S2 Abnormal Heart Sounds: no systolic murmur, no diastolic murmur, no rub, no S3 Gallop, no S4 Gallop, no click, no other leg Peripheral Edema: bilateral: 1+ - Gastrointestinal General gastrointestinal: no absent bowel sounds, no decreased bowel sounds, distended, hepatomegaly, no hyperactive bowel sounds, normal bowel sounds, no organomegaly, no rigid, no scaphoid, soft, no splenomegaly, no tenderness, no umbilical hernia, no ventral hernia - Integumentary Integumentary: normal - Neurologic Neurologic: CNII-XII intact - Musculoskeletal Musculoskeletal: generalized weakness, strength equal bilaterally - Psychiatric Psychiatric: A&O x's 3, appropriate affect, intact judgment & insight Results CBC & Chem 7: 06/05/20 04:24 06/05/20 04:24 Labs: Abnormal Lab Results - Last 24 Hours (Table) 06/04/20 06/04/20 06/04/20 Range/Units 11:29 16:58 21:02 WBC (3.8-10.6) k/uL RBC (4.30-5.90) m/uL Hgb (13.0-17.5) gm/dL Hct (39.0-53.0) % MCHC (31.0-37.0) g/dL Neutrophils # (1.3-7.7) k/uL PT (9.0-12.0) sec INR (<1.2) Sodium (137-145) mmol/L Chloride (98-107) mmol/L BUN (9-20) mg/dL Glucose (74-99) mg/dL POC Glucose (mg/dL) 140 H 144 H 160 H (75-99) mg/dL AST (17-59) U/L ALT (4-49) U/L Alkaline Phosphatase (38-126) U/L Total Protein (6.3-8.2) g/dL Albumin (3.5-5.0) g/dL 06/05/20 06/05/20 06/05/20 Range/Units 04:24 04:24 04:24 WBC 17.8 H (3.8-10.6) k/uL RBC 3.75 L (4.30-5.90) m/uL Hgb 11.4 L (13.0-17.5) gm/dL Hct 37.1 L (39.0-53.0) % MCHC 30.7 L (31.0-37.0) g/dL Neutrophils # 15.2 H (1.3-7.7) k/uL PT 17.2 H (9.0-12.0) sec INR 1.8 H (<1.2) Sodium 135 L (137-145) mmol/L Chloride 109 H (98-107) mmol/L BUN 21 H (9-20) mg/dL Glucose 112 H (74-99) mg/dL POC Glucose (mg/dL) (75-99) mg/dL AST 149 H (17-59) U/L ALT 83 H (4-49) U/L Alkaline Phosphatase 737 H (38-126) U/L Total Protein 5.0 L (6.3-8.2) g/dL Albumin 2.0 L (3.5-5.0) g/dL 06/05/20 Range/Units 06:58 WBC (3.8-10.6) k/uL RBC (4.30-5.90) m/uL Hgb (13.0-17.5) gm/dL Hct (39.0-53.0) % MCHC (31.0-37.0) g/dL Neutrophils # (1.3-7.7) k/uL PT (9.0-12.0) sec INR (<1.2) Sodium (137-145) mmol/L Chloride (98-107) mmol/L BUN (9-20) mg/dL Glucose (74-99) mg/dL POC Glucose (mg/dL) 119 H (75-99) mg/dL AST (17-59) U/L ALT (4-49) U/L Alkaline Phosphatase (38-126) U/L Total Protein (6.3-8.2) g/dL Albumin (3.5-5.0) g/dL Microbiology - Last 24 Hours (Table) 06/02/20 14:16 Blood Culture - Preliminary Blood No Growth after 48 hours Chest x-ray: report reviewed CT scan - abdomen: report reviewed CT scan - chest: report reviewed CT scan - pelvis: report reviewed US - abdomen: report reviewed Assessment and Plan (1) Liver lesion Narrative/Plan: Discussed with the patient the concerning findings on the ultrasound and CT of the chest, abdomen and pelvis. Was explained to the patient more commonly lesions in the liver are associated with malignancies that have metastasized to the liver from another origin with primary liver malignancies being less common. Currently there are only identifiable lesions within the liver. Pending biopsy. It was explained that biopsy of the liver will tell us the origin of the lesions and then we will be able to develop a prognosis and treatment option plan. Patient verbalized understanding and is agreeable to the same. Nuclear medicine bone scan has been ordered to complete staging workup. AFP 519, CEA 1, CA-19-9 32.5. Current Visit: Yes Status: Acute Priority: High Code(s): K76.9 - LIVER DISEASE, UNSPECIFIED SNOMED Code(s): 546694379 (2) Supratherapeutic INR Narrative/Plan: Discussed case briefly with internal medicine. Vitamin K 5 mg has been ordered to reverse INR 1.8, hopes of liver biopsy in the a.m. INR regulation is going to be difficult with liver disease. May have to consider one of the NOAC. Cardiology input regarding A. fib and control suggested. Current Visit: Yes Status: Acute Priority: High Code(s): R79.1 - ABNORMAL COAGULATION PROFILE SNOMED Code(s): 340418823 Plan: Doctor attests: I performed a history and physical examination of this patient, developed impression and plan of care. Discussed with dictator. I agree with dictators note, documented as a scribe.
[2020-06-05] MEDS ORDERED: PHYTONADIONE 5 MG in SODIUM CHLORIDE 0.9% 50 ML IVPB ONE (11:00)
[2020-06-05 12:26] LABS: Glucose,Whole Blood 140 mg/dL (75-99)
--- NOTE | 2020-06-05 13:10 | P.PN ---
Subjective Progress Note Date: 06/05/20 Principal diagnosis: Generalized weakness and fatigue 75-year-old female patient who presented emergency department because of generalized weakness and fatigue. The patient's is known to have diabetes mellitus in addition to chronic atrial fibrillation. 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 The blood work that was done and the ED was quite abnormal. The patient was toxic on Coumadin with an elevated INR of more than 10 without signs of any acute bleeding. Also, the patient had a white cell count of 22.9 and a lactate level of 5.7.He also abnormal with an ALT of 91, AST of 173 and bilirubin of 1.2 with an alk phos of 965. ProBNP level was 3460. Total protein was 5.7 with an albumin level of 2.5. This patient does not have any nausea or vomiting. No reported abdominal pain. No reported fever chills or night sweats. No reported cough or sputum production or chest that is so wheezing. No reported falls. Trace edema lower extremities. No headaches. No neck stiffness. No altered mentation. He has diffuse body soreness and body aches it's been going on for several months. He takes a statin medication. He soreness is throughout his body mainly in his upper and lower back area bilaterally. No recent falls. No open wounds or sores or ulceration. No dysuria frequency or urgency.Ultrasound of the liver showed cirrhotic h eterogeneous liver with multiple liver masses likely representing diffuse metastatic disease. There is also gallbladder wall thickening due to contracted state of the gallbladder. On 06/03/2020, the patient is being seen in follow-up in the intensive care unit. The patient is calm and comfortable and has no specific complaints. Note that the patient's was hospitalized for some constitutional symptoms addition lactic acidosis of Coumadin toxicity. The Coumadin toxicity was reversed and the patient's INR is down to 1.9. He'll be kept off Coumadin for now. At the same time, further investigation showed the possibility of a metastatic liver involvement and the patient will need further investigation. CAT scan of the chest abdomen and pelvis was completed and the CAT scan showed enlarged extensive heterogeneous liver compatible with metastatic disease. Note that there was large lesions in the liver up to 4 cm in size and small amount of ascites. The white cell count is at 19.4. Hemoglobin is 11.2. INR is down to 1.9. Her function is stable with a creatinine of 1.2. The patient's lactic acid level is at 3.9. Calcium is at 8.6. He is tolerating his diet. No nausea. No vomiting. No diarrhea. No abdominal pain. No other complaints otherwise for now. 06/04/2020, the patient is calm and comfortable following commands and answering questions appropriately. He is still a bit tachycardic related to his atrial fibrillation and the necessity medication adjustments were done in regards to the Cardizem and metoprolol. Otherwise, the patient has no significant abdomina l distention. No altered mentation. No abdominal pain. No nausea or vomiting. No diarrhea or abdominal pain. The patient had some tumor markers and the CEA and CA-19-9 levels came back within normal limits. Nevertheless, the alpha- fetoprotein level was quite elevated and the patient will need a fine-needle aspirate of the liver mass for tissue diagnosis. The patient has been off Coumadin and his repeat INR is still pending for now. No other new complaints for now. Hematology oncology consultation was placed. The patient also be seen by interventional radiology for possible FNA of the liver mass tomorrow. On 06/05/2020 patient seen in follow-up. Patient is up in the chair, denies any acute distress, looking a little pale, but no complaints of shortness of breath, no specific complaints on today's exam, her pulse ox is 97%, vital signs are stable, tachycardic with a heart rate in the 100s. Today's chest which has been reviewed showing increased size of right basilar airspace opacity and small right pleural effusion and left basilar atelectasis. No complaints of chest pain, no hemoptysis, no cough or congestion. Hematology/oncology consultation has been noted, and the plan is to proceed with a liver biopsy tomorrow, and bone scan today Objective - Vital Signs Vital signs: Vital Signs Temp 97.6 F 06/05/20 12:18 Pulse 96 06/05/20 12:18 Resp 20 06/05/20 12:18 BP 93/60 06/05/20 12:18 Pulse Ox 97 06/05/20 12:18 Intake & Output 06/04/20 06/05/20 06/05/20 18:59 06:59 18:59 Intake Total 1395 1100 Output Total 0 0 0 Balance 1395 1100 0 Weight 106.8 kg Intake: IV 650 Piperacillin-Tazobactam 3 100 .375 gm In Sodium Chloride 0.9% 100 ml @ 25 mls/hr IVPB Q8HR [facility] Rx# :[id number] Sodium Chloride 0.9% 1, 50 000 ml @ 130 mls/hr IV . Q7H42M [facility] Rx#:[id number] Vancomycin 1,750 mg In 500 Sodium Chloride 0.9% 500 ml 500 ml @ 167 mls/hr IVPB Q16H [facility] Rx#: [id number] Intake, IV Titration 25 Amount Piperacillin-Tazobactam 3 25 .375 gm In Sodium Chloride 0.9% 100 ml @ 25 mls/hr IVPB Q8HR [facility] Rx# :[id number] Oral 720 1100 Output: Urine 0 0 0 Other: Voiding Method Toilet Toilet # Voids 1 1 # Bowel Movements 1 - Exam GENERAL EXAM: Alert, very pleasant, 75-year-old white male, sitting up in the recliner, looking a little pale, but no acute distress, answering questions appropriately, oriented 3, breathing is comfortable, on room air with a pulse ox of 97% comfortable in no apparent distress. HEAD: Normocephalic/atraumatic. EYES: Normal reaction of pupils, equal size. Conjunctiva pink, sclera white. NOSE: Clear with pink turbinates. THROAT: No erythema or exudates. NECK: No masses, no JVD, no thyroid enlargement, no adenopathy. CHEST: No chest wall deformity. Symmetrical expansion. LUNGS: Equal air entry with no crackles, wheeze, rhonchi or dullness. CVS: Regular rate and rhythm, normal S1 and S2, no gallops, no murmurs, no rubs ABDOMEN: Soft, nontender, distended. No hepatosplenomegaly, normal bowel sounds, no guarding or rigidity. EXTREMITIES: No clubbing, no edema, no cyanosis, 2+ pulses and upper and lower extremities. MUSCULOSKELETAL: Muscle strength and tone normal. SPINE: No scoliosis or deformity SKIN: No rashes CENTRAL NERVOUS SYSTEM: Alert and oriented -3. No focal deficits, tone is normal in all 4 extremities. PSYCHIATRIC: Alert and oriented -3. Appropriate affect. Intact judgment and insight. - Labs CBC & Chem 7: 06/05/20 04:24 06/05/20 04:24 Labs: Abnormal Lab Results - Last 24 Hours (Table) 06/04/20 06/04/20 06/05/20 Range/Units 16:58 21:02 04:24 WBC (3.8-10.6) k/uL RBC (4.30-5.90) m/uL Hgb (13.0-17.5) gm/dL Hct (39.0-53.0) % MCHC (31.0-37.0) g/dL Neutrophils # (1.3-7.7) k/uL PT 17.2 H (9.0-12.0) sec INR 1.8 H (<1.2) Sodium (137-145) mmol/L Chloride (98-107) mmol/L BUN (9-20) mg/dL Glucose (74-99) mg/dL POC Glucose (mg/dL) 144 H 160 H (75-99) mg/dL AST (17-59) U/L ALT (4-49) U/L Alkaline Phosphatase (38-126) U/L Total Protein (6.3-8.2) g/dL Albumin (3.5-5.0) g/dL 06/05/20 06/05/20 06/05/20 Range/Units 04:24 04:24 06:58 WBC 17.8 H (3.8-10.6) k/uL RBC 3.75 L (4.30-5.90) m/uL Hgb 11.4 L (13.0-17.5) gm/dL Hct 37.1 L (39.0-53.0) % MCHC 30.7 L (31.0-37.0) g/dL Neutrophils # 15.2 H (1.3-7.7) k/uL PT (9.0-12.0) sec INR (<1.2) Sodium 135 L (137-145) mmol/L Chloride 109 H (98-107) mmol/L BUN 21 H (9-20) mg/dL Glucose 112 H (74-99) mg/dL POC Glucose (mg/dL) 119 H (75-99) mg/dL AST 149 H (17-59) U/L ALT 83 H (4-49) U/L Alkaline Phosphatase 737 H (38-126) U/L Total Protein 5.0 L (6.3-8.2) g/dL Albumin 2.0 L (3.5-5.0) g/dL 06/05/20 Range/Units 12:17 WBC (3.8-10.6) k/uL RBC (4.30-5.90) m/uL Hgb (13.0-17.5) gm/dL Hct (39.0-53.0) % MCHC (31.0-37.0) g/dL Neutrophils # (1.3-7.7) k/uL PT (9.0-12.0) sec INR (<1.2) Sodium (137-145) mmol/L Chloride (98-107) mmol/L BUN (9-20) mg/dL Glucose (74-99) mg/dL POC Glucose (mg/dL) 140 H (75-99) mg/dL AST (17-59) U/L ALT (4-49) U/L Alkaline Phosphatase (38-126) U/L Total Protein (6.3-8.2) g/dL Albumin (3.5-5.0) g/dL Microbiology - Last 24 Hours (Table) 06/02/20 14:16 Blood Culture - Preliminary Blood No Growth after 48 hours Assessment and Plan Plan: Assessment: 1 generalized weakness, constipation symptoms with weight loss, loss of appetite and body aches, consider underlying metastatic disease/malignancy especially the patient had abnormal LFTs and the patient has an ultrasound of the abdomen that showed multiple hepatic lesions consistent with metastatic disease. The alpha- fetoprotein is elevated and I suspect a primary hepatocellular carcinoma on top of chronic liver cirrhosis. The rest of the tumor markers were negative. Patient is currently off anticoagulation. INR is down to 1.6 and the patient was asked to be seen by interventional radiology for a possible liver biopsy to be done within next 24 hours. 2 cirrhotic liver based on ultrasound criteria, awaiting hepatitis profile 3 abnormal LFTs 4 mild lactic acidosis likely secondary to liver disease 5 leukocytosis, nonspecific, noninfectious 6 chronic atrial fibrillation, rate controlled 7 supratherapeutic PT/INR, INR of more than 10 without evidence of an acute bleed 8 diabetes mellitus 9 hypertension 10 hyperlipidemia. 11 peripheral vascular disease 12 CHF with secondary pulmonary hypertension 13 remote history of head trauma/contusion 14 remote history of alcoholism quit drinking 2005 Plan: No pulmonary complaints, no worsening dyspnea, patient is on room air, today's chest x-ray has been reviewed, showing right basilar airspace opacity and small right pleural effusion and left basilar atelectasis. Oncology consultation has been noted, and patient is going for liver biopsy tomorrow with interventional radiology. Bone scan today to complete staging process. Vital signs have been stable overnight, no acute events I performed a history & physical examination of the patient and discussed their management with my nurse practitioner, Jennifer Harris. I reviewed the nurse practitioner's note and agree with the documented findings and plan of care. Lung sounds are positive for clear breath sounds. The findings and the impression was discussed with the patient. I attest to the documentation by the nurse practitioner. Time with Patient: Less than 30
[2020-06-05 13:11] LABS: Hepatitis A Ab, Total Reactive (Non-Reactive); Hepatitis C IgG Antibody Non-Reactive (Non-Reactive)
--- NOTE | 2020-06-05 14:43 | NM ---
EXAMINATION TYPE: NM bone scan whole body DATE OF EXAM: 06/05/2020 COMPARISON: CT chest abdomen pelvis 05/25/2020 HISTORY: Liver lesions Delayed whole-body scanning was performed following the injection of 23.5 mCi Tc 99m MDP. Images acq uired 3 hours post injection. FINDINGS: There is activity seen over the left hand which likely represents extravasation/leaking of injected r adionuclide. There is no suspicious focal uptake demonstrated on the bone scan. Mild degenerative upt hanane of the bilateral shoulders and right knee. IMPRESSION: 1. No focal uptake suspicious for metastatic disease. 2. Activity over the left hand/thumb likely represents extravasation/leaking of the injected radionu clide.
[2020-06-05 17:23] LABS: Glucose,Whole Blood 123 mg/dL (75-99)
--- NOTE | 2020-06-05 17:40 | P.PN ---
Subjective Progress Note Date: 06/05/20 Undiagnosed metastatic disease to the liver 75-year-old male presented to the hospital at the request of Dr. Muller. The ER this patient had an elevated INR of 10 elevated liver enzymes ALP of 91 AST 173 bilirubin of 1.2 alkaline phosphatase was 965, his lactic acid was 5.7. Lactic acid has normalized his INR has normalized CT of the abdomen confirms metastatic-type disease to the liver CEA was neg CA-19-9 also negative , alpha- fetoprotein slightly elevated again CT of the abdomen and chest and pelvis demonstrated a bilateral pleural effusion small of the chest there were metastases to the liver, and the pelvis appeared unremarkable the abdomen also pancreas appeared negative for mass. 06/05/2020 INR currently at 1.8. Telemetry reporting atrial fibrillation with heart rates 110s to 120s, Cardizem increased. Less Short of breath, maintaining O2 sats in the high 90s on room air. Chest x-ray reporting increased right basilar airspace opacity and small right pleural effusion, haziness of the left costophrenic angle, atelectasis. Mild tachycardia .LFTs trending down. WBC down to 17.8. Evaluated by oncology, recommendations noted including bone scan and liver biopsy. Objective - Vital Signs Vital signs: Vital Signs Temp 97.6 F 06/05/20 12:18 Pulse 96 06/05/20 12:18 Resp 20 06/05/20 12:18 BP 93/60 06/05/20 12:18 Pulse Ox 97 06/05/20 12:18 Intake & Output 06/04/20 06/05/20 06/05/20 18:59 06:59 18:59 Intake Total 1395 1100 480 Output Total 0 0 0 Balance 1395 1100 480 Weight 106.8 kg Intake: IV 650 Piperacillin-Tazobactam 3 100 .375 gm In Sodium Chloride 0.9% 100 ml @ 25 mls/hr IVPB Q8HR [facility] Rx# :[id number] Sodium Chloride 0.9% 1, 50 000 ml @ 130 mls/hr IV . Q7H42M [facility] Rx#:[id number] Vancomycin 1,750 mg In 500 Sodium Chloride 0.9% 500 ml 500 ml @ 167 mls/hr IVPB Q16H [facility] Rx#: [id number] Intake, IV Titration 25 Amount Piperacillin-Tazobactam 3 25 .375 gm In Sodium Chloride 0.9% 100 ml @ 25 mls/hr IVPB Q8HR [facility] Rx# :[id number] Oral 720 1100 480 Output: Urine 0 0 0 Other: Voiding Method Toilet Toilet # Voids 1 1 # Bowel Movements 1 - Exam General: [Patient awake, alert and oriented times 3. Patient in no acute distress.] HEENT: [PERRL. EOMI. No pharyngeal erythema or exudate.] Neck: [No adenopathy.] Cardiac: [Regular S1, S2 , Irregular, tachycardic, No S3. No S4. No clicks, rubs. No murmur.] Lungs: [Mildly increased respiratory effort Clear to auscultation bilaterally.] Abdomen: [Distended, rigid ,No mass. No organomegaly. Bowel sounds presnt and normoactive in all 4 quadrants.] Extremes: [1+ pitting edema, no cyanosis no claudication normal pulses] Musculoskeletal: [No joint erythema, edema or tenderness.] Skin: [No rash.] Neurologic: [No lateralizing deficits. CN II - XII grossly intact.] - Labs CBC & Chem 7: 06/05/20 04:24 06/05/20 04:24 Labs: Abnormal Lab Results - Last 24 Hours (Table) 06/04/20 06/05/20 06/05/20 Range/Units 21:02 04:24 04:24 WBC (3.8-10.6) k/uL RBC (4.30-5.90) m/uL Hgb (13.0-17.5) gm/dL Hct (39.0-53.0) % MCHC (31.0-37.0) g/dL Neutrophils # (1.3-7.7) k/uL PT 17.2 H (9.0-12.0) sec INR 1.8 H (<1.2) Sodium (137-145) mmol/L Chloride (98-107) mmol/L BUN (9-20) mg/dL Glucose (74-99) mg/dL POC Glucose (mg/dL) 160 H (75-99) mg/dL AST (17-59) U/L ALT (4-49) U/L Alkaline Phosphatase (38-126) U/L Total Protein (6.3-8.2) g/dL Albumin (3.5-5.0) g/dL Hepatitis A Ab Total Reactive H (Non-Reactive) 06/05/20 06/05/20 06/05/20 Range/Units 04:24 04:24 06:58 WBC 17.8 H (3.8-10.6) k/uL RBC 3.75 L (4.30-5.90) m/uL Hgb 11.4 L (13.0-17.5) gm/dL Hct 37.1 L (39.0-53.0) % MCHC 30.7 L (31.0-37.0) g/dL Neutrophils # 15.2 H (1.3-7.7) k/uL PT (9.0-12.0) sec INR (<1.2) Sodium 135 L (137-145) mmol/L Chloride 109 H (98-107) mmol/L BUN 21 H (9-20) mg/dL Glucose 112 H (74-99) mg/dL POC Glucose (mg/dL) 119 H (75-99) mg/dL AST 149 H (17-59) U/L ALT 83 H (4-49) U/L Alkaline Phosphatase 737 H (38-126) U/L Total Protein 5.0 L (6.3-8.2) g/dL Albumin 2.0 L (3.5-5.0) g/dL Hepatitis A Ab Total (Non-Reactive) 06/05/20 Range/Units 12:17 WBC (3.8-10.6) k/uL RBC (4.30-5.90) m/uL Hgb (13.0-17.5) gm/dL Hct (39.0-53.0) % MCHC (31.0-37.0) g/dL Neutrophils # (1.3-7.7) k/uL PT (9.0-12.0) sec INR (<1.2) Sodium (137-145) mmol/L Chloride (98-107) mmol/L BUN (9-20) mg/dL Glucose (74-99) mg/dL POC Glucose (mg/dL) 140 H (75-99) mg/dL AST (17-59) U/L ALT (4-49) U/L Alkaline Phosphatase (38-126) U/L Total Protein (6.3-8.2) g/dL Albumin (3.5-5.0) g/dL Hepatitis A Ab Total (Non-Reactive) Microbiology - Last 24 Hours (Table) 06/02/20 14:16 Blood Culture - Preliminary Blood No Growth after 72 hours Assessment and Plan Assessment: (1) Metastasis to liver of unknown origin, possible metastatic disease, Current Visit: Yes Status: Acute Code(s): C78.7 - SECONDARY MALIG NEOPLASM OF LIVER AND INTRAHEPATIC BILE DUCT; C80.1 - MALIGNANT (PRIMARY) NEOPLASM, UNSPECIFIED SNOMED Code(s): 814374437 (2) Liver cirrhosis, as per CT, (3) Coumadin toxicity Narrative/Plan: Normalized Current Visit: Yes Status: Acute Code(s): T45.511A - POISONING BY ANTICOAGULANTS, ACCIDENTAL, INIT SNOMED Code(s): 02029909 (4) Gallbladder contraction Current Visit: Yes Status: Acute Code(s): K82.0 - OBSTRUCTION OF GALLBLADDER SNOMED Code(s): 470396683 (5) Lactic acidosis, nonspecific Narrative/Plan: Also normalized Current Visit: Yes Status: Acute Code(s): E87.2 - ACIDOSIS SNOMED Code(s): 50592910 (6) Sepsis Narrative/Plan: Patient has been fluid resuscitated currently on IV antibiotics appears to be hemodynamically stable Current Visit: Yes Status: Acute Code(s): A41.9 - SEPSIS, UNSPECIFIED ORGANISM SNOMED Code(s): 85863970 (7) Rectal bleeding Narrative/Plan: Persistent but much less than when he was admitted when the INR was elevated Current Visit: No Status: Acute Code(s): K62.5 - HEMORRHAGE OF ANUS AND RECTUM SNOMED Code(s): 38937689 (8) Venous insufficiency of leg Current Visit: No Status: Acute Code(s): I87.2 - VENOUS INSUFFICIENCY (CHR ONIC) (PERIPHERAL) SNOMED Code(s): 027391846 (9) diabetes mellitus (10) chronic A. fib, uncontrolled (11) remote history of head trauma, contusion (12) hypertension (13) pulmonary hypertension (14) history of alcoholism and nicotine dependence, quit both in 2005. Plan: Continue on current medication regime ,monitoring and symptomatic treatment. Scheduled for liver biopsy tomorrow. Patient will require more vitamin K as INR 1.8. Bone scan today. Prognosis guarded given multiple complex medical issues. The impression and plan of care has been dictated as directed. : I performed a history and examination of this patient, discussed the same with the dictator. I agree with the dictator's note ,documented as a scribe. Any additional findings or plans will be noted.
[2020-06-05 20:57] LABS: Glucose,Whole Blood 156 mg/dL (75-99)
[2020-06-06 06:17] LABS: Glucose,Whole Blood 115 mg/dL (75-99)
[2020-06-06] MEDS: INSULIN ASPART (NovoLOG) 100 UNIT/ML VIAL SQ SCH ×4 (06:18→23:06)
[2020-06-06 07:11] LABS: Basophils # (A) 0.1 k/uL (0-0.2); Basophils % (A) 0 %; Eosinophils # (A) 0.1 k/uL (0-0.7); Eosinophils % (A) 1 %; HCT 36.5 % (39.0-53.0); HGB 10.9 gm/dL (13.0-17.5); Hypochromasia Moderate; Lymphocytes # (A) 1.7 k/uL (1.0-4.8); Lymphocytes % (A) 9 %; MCH 29.6 pg (25.0-35.0); MCHC 29.8 g/dL (31.0-37.0); MCV 99.5 fL (80.0-100.0); Macrocytosis Slight; Monocytes # (A) 0.7 k/uL (0-1.0); Monocytes % (A) 4 %; Neutrophils # (A) 16.5 k/uL (1.3-7.7); Neutrophils % (A) 85 %; Platelet Count 263 k/uL (150-450); RBC 3.67 m/uL (4.30-5.90); WBC 19.4 k/uL (3.8-10.6)
[2020-06-06 07:20] LABS: INR 1.2 (<1.2); Prothrombin Time 12.3 sec (9.0-12.0)
[2020-06-06 07:22] LABS: Albumin 2.2 g/dL (3.5-5.0); Calcium 8.9 mg/dL (8.4-10.2); Potassium 4.8 mmol/L (3.5-5.1); Total Bilirubin 1.2 mg/dL (0.2-1.3); Total Protein 5.3 g/dL (6.3-8.2)
[2020-06-06] MEDS: METOPROLOL TARTRATE 50 MG TAB PO SCH ×2 (08:45→19:57)
[2020-06-06] MEDS: DILTIAZEM CD 180 MG CAP.ER.24H PO SCH (08:45)
[2020-06-06] MEDS: ACETAMINOPHEN TAB 325 MG TAB PO PRN ×2 (08:45→17:13)
[2020-06-06 11:52] LABS: Glucose,Whole Blood 116 mg/dL (75-99)
--- NOTE | 2020-06-06 14:43 | P.PN ---
Subjective Progress Note Date: 06/06/20 Principal diagnosis: Generalized weakness and weight loss. Possible hepatobiliary or GI malignancy. 75-year-old female patient who presented emergency department because of gener alized weakness and fatigue. The patient's is known to have diabetes mellitus in addition to chronic atrial fibrillation. The patient is demented on long- term articulation with warfarin. The blood work that was done and the ED was quite abnormal. The patient was toxic on Coumadin with an elevated INR of more than 10 without signs of any acute bleeding. Also, the patient had a white cell count of 22.9 and a lactate level of 5.7.He also abnormal with an ALT of 91, AST of 173 and bilirubin of 1.2 with an alk phos of 965. ProBNP level was 3460. Total protein was 5.7 with an albumin level of 2.5. This patient does not have any nausea or vomiting. No reported abdominal pain. No reported fever chills or night sweats. No reported cough or sputum production or chest that is so wheezing. No reported falls. Trace edema lower extremities. No headaches. No neck stiffness. No altered mentation. He has diffuse body soreness and body aches it's been going on for several months. He takes a statin medication. He soreness is throughout his body mainly in his upper and lower back area bilaterally. No recent falls. No open wounds or sores or ulceration. No dysuria frequency or urgency.Ultrasound of the liver showed cirrhotic heterogeneous liver with multiple liver masses likely representing diffuse metastatic disease. There is also gallbladder wall thickening due to contracted state of the gallbladder. On 06/03/2020, the patient is being seen in follow-up in the intensive care unit. The patient is calm and comfortable and has no specific complaints. Note that the patient's was hospitalized for some constitutional symptoms addition lactic acidosis of Coumadin toxicity. The Coumadin toxicity was reversed and the patient's INR is down to 1.9. He'll be kept off Coumadin for now. At the same time, further investigation showed the possibility of a metastatic liver i nvolvement and the patient will need further investigation. CAT scan of the chest abdomen and pelvis was completed and the CAT scan showed enlarged extensive heterogeneous liver compatible with metastatic disease. Note that there was large lesions in the liver up to 4 cm in size and small amount of ascites. The white cell count is at 19.4. Hemoglobin is 11.2. INR is down to 1.9. Her function is stable with a creatinine of 1.2. The patient's lactic acid level is at 3.9. Calcium is at 8.6. He is tolerating his diet. No nausea. No vomiting. No diarrhea. No abdominal pain. No other complaints otherwise for now. 06/04/2020, the patient is calm and comfortable following commands and answering questions appropriately. He is still a bit tachycardic related to his atrial fibrillation and the necessity medication adjustments were done in regards to the Cardizem and metoprolol. Otherwise, the patient has no significant abdominal distention. No altered mentation. No abdominal pain. No nausea or vomiting. No diarrhea or abdominal pain. The patient had some tumor markers and the CEA and CA-19-9 levels came back within normal limits. Nevertheless, the alpha-fetoprotein level was quite elevated and the patient will need a fine- needle aspirate of the liver mass for tissue diagnosis. The patient has been off Coumadin and his repeat INR is still pending for now. No other new complaints for now. Hematology oncology consultation was placed. The patient also be seen by interventional radiology for possible FNA of the liver mass tomorrow. On 06/05/2020 patient seen in follow-up. Patient is up in the chair, denies any acute distress, looking a little pale, but no complaints of shortness of breath, no specific complaints on today's exam, her pulse ox is 97%, vital signs are stable, tachycardic with a heart rate in the 100s. Today's chest which has been reviewed showing increased size of right basilar airspace opacity and small right pleural effusion and left basilar atelectasis. No complaints of chest pain, no hemoptysis, no cough or congestion. Hematology/oncology consultation has been noted, and the plan is to proceed with a liver biopsy tomorrow, and b one scan today Reevaluated today on 06/06/20, patient had a liver biopsy done today. Patient is doing well, relatively asymptomatic, his weakness seems to be improved, patient is hemodynamically stable, denies any cough no wheezing no shortness of breath. Denies any chest pain. Denies any nausea vomiting or abdominal pain. Pathology from his liver core biopsy is pending. Objective - Vital Signs Vital signs: Vital Signs Temp 98.6 F 06/06/20 11:54 Pulse 78 06/06/20 12:24 Resp 18 06/06/20 12:24 BP 105/59 06/06/20 12:24 Pulse Ox 96 06/06/20 12:24 Intake & Output 06/05/20 06/06/20 06/06/20 18:59 06:59 18:59 Intake Total 480 500 200 Output Total 0 Balance 480 500 200 Weight 110.9 kg Intake: IV 500 Vancomycin 1,750 mg In 500 Sodium Chloride 0.9% 500 ml 500 ml @ 167 mls/hr IVPB Q16H [facility] Rx#: [id number] Oral 480 200 Output: Urine 0 Other: Voiding Method Toilet # Voids 3 2 # Bowel Movements 2 - Exam GENERAL EXAM: Revealed 75-year-old white male in no distress. EENT: PERRLA, EOMI, no icterus, neck masses, no JVD. CHEST: No chest wall deformity. Symmetrical expansion. LUNGS: Equal air entry with no crackles, wheeze, rhonchi or dullness. CVS: Regular rate and rhythm, normal S1 and S2, no gallops, no murmurs, no rubs ABDOMEN: Soft, nontender, distended. No hepatosplenomegaly, normal bowel sounds, no guarding or rigidity. EXTREMITIES: No clubbing, no edema, no cyanosis, 2+ pulses and upper and lower extremities. MUSCULOSKELETAL: Muscle strength and tone normal. SPINE: No scoliosis or deformity SKIN: No rashes CENTRAL NERVOUS SYSTEM: Alert and oriented -3. No focal deficits, tone is normal in all 4 extremities. PSYCHIATRIC: Alert and oriented -3. Appropriate affect. Intact judgment and insight. - Labs CBC & Chem 7: 06/06/20 06:18 06/06/20 06:18 Labs: Abnormal Lab Results - Last 24 Hours (Table) 06/05/20 06/05/20 06/06/20 Range/Units 16:55 20:52 06:08 WBC (3.8-10.6) k/uL RBC (4.30-5.90) m/uL Hgb (13.0-17.5) gm/dL Hct (39.0-53.0) % MCHC (31.0-37.0) g/dL Neutrophils # (1.3-7.7) k/uL PT (9.0-12.0) sec INR (<1.2) Chloride (98-107) mmol/L Carbon Dioxide (22-30) mmol/L BUN (9-20) mg/dL Creatinine (0.66-1.25) mg/dL Glucose (74-99) mg/dL POC Glucose (mg/dL) 123 H 156 H 115 H (75-99) mg/dL AST (17-59) U/L ALT (4-49) U/L Alkaline Phosphatase (38-126) U/L Total Protein (6.3-8.2) g/dL Albumin (3.5-5.0) g/dL 06/06/20 06/06/20 06/06/20 Range/Units 06:18 06:18 06:18 WBC 19.4 H (3.8-10.6) k/uL RBC 3.67 L (4.30-5.90) m/uL Hgb 10.9 L (13.0-17.5) gm/dL Hct 36.5 L (39.0-53.0) % MCHC 29.8 L (31.0-37.0) g/dL Neutrophils # 16.5 H (1.3-7.7) k/uL PT 12.3 H (9.0-12.0) sec INR 1.2 H (<1.2) Chloride 109 H (98-107) mmol/L Carbon Dioxide 21 L (22-30) mmol/L BUN 28 H (9-20) mg/dL Creatinine 1.45 H (0.66-1.25) mg/dL Glucose 100 H (74-99) mg/dL POC Glucose (mg/dL) (75-99) mg/dL AST 134 H (17-59) U/L ALT 88 H (4-49) U/L Alkaline Phosphatase 874 H (38-126) U/L Total Protein 5.3 L (6.3-8.2) g/dL Albumin 2.2 L (3.5-5.0) g/dL 06/06/20 Range/Units 11:49 WBC (3.8-10.6) k/uL RBC (4.30-5.90) m/uL Hgb (13.0-17.5) gm/dL Hct (39.0-53.0) % MCHC (31.0-37.0) g/dL Neutrophils # (1.3-7.7) k/uL PT (9.0-12.0) sec INR (<1.2) Chloride (98-107) mmol/L Carbon Dioxide (22-30) mmol/L BUN (9-20) mg/dL Creatinine (0.66-1.25) mg/dL Glucose (74-99) mg/dL POC Glucose (mg/dL) 116 H (75-99) mg/dL AST (17-59) U/L ALT (4-49) U/L Alkaline Phosphatase (38-126) U/L Total Protein (6.3-8.2) g/dL Albumin (3.5-5.0) g/dL Microbiology - Last 24 Hours (Table) 06/02/20 14:16 Blood Culture - Preliminary Blood No Growth after 72 hours Assessment and Plan Assessment: Impression: Multiple constitutional symptoms suggestive of underlying metastatic disease. 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 Cirrhotic liver Chronic atrial fibrillation, rate controlled. Type 2 diabetes. Remote history of alcoholism, quit in 2005. History of secondary pulmonary hypertension. Elevated alpha-fetoprotein. Recommendation: Continue present supportive care measures. Await the results of his liver biopsy. We will continue to follow. Time with Patient: Less than 30
--- NOTE | 2020-06-06 16:00 | US ---
EXAMINATION TYPE: US biopsy liver DATE OF EXAM: 06/06/2020 HISTORY: Diffuse liver masses COMPARISON: CT chest abdomen pelvis 06/02/2020. Ultrasound gallbladder 06/02/2020. LINING CLOSER: Dr. Flavia Liu PROCEDURE: Preliminary preprocedure ultrasound imaging demonstrates innumerable masses diffusely involving the r ight and left liver. The procedure was discussed with the patient. The risks, complications, benefits, and alternatives we re discussed and any questions were answered. Informed consent was obtained. Patient was positioned semiupright. Maximal barrier technique was utilized. The skin overlying a suit able path to the liver was localized using ultrasound, the skin was prepped and draped. Ultrasound wa s utilized with sterile technique. Lidocaine was used for local anesthesia. A skin emil made with a s calpel. Under direct ultrasound guidance, a 17-gauge introducer needle was advanced into the left li iwona, the stylet was removed, and 18-gauge core biopsy needle was advanced into the liver and core bio psy obtained. 1 core biopsy specimen was obtained, and submitted in formalin for histopathology. Hem ostasis was achieved. There was no immediate complication and patient remained in stable condition. Post procedure ultrasound imaging demonstrates no significant hemorrhage. IMPRESSION: Status post ultrasound-guided 18-gauge core biopsy of the liver. Innumerable masses diffusely involvi ng the right and left lobes of the liver. Pathology pending.
[2020-06-06 16:56] LABS: Glucose,Whole Blood 174 mg/dL (75-99)
--- NOTE | 2020-06-06 16:57 | P.PN ---
Subjective Progress Note Date: 06/06/20 Undiagnosed metastatic disease to the liver 75-year-old male presented to the hospital at the request of Dr. Muller. The ER this patient had an elevated INR of 10 elevated liver enzymes ALP of 91 AST 173 bilirubin of 1.2 alkaline phosphatase was 965, his lactic acid was 5.7. Lactic acid has normalized his INR has normalized CT of the abdomen confirms metastatic-type disease to the liver CEA was neg CA-19-9 also negative , alpha- fetoprotein slightly elevated again CT of the abdomen and chest and pelvis demonstrated a bilateral pleural effusion small of the chest there were metastases to the liver, and the pelvis appeared unremarkable the abdomen also pancreas appeared negative for mass. 06/05/2020 INR currently at 1.8. Telemetry reporting atrial fibrillation with heart rates 110s to 120s, Cardizem increased. Less Short of breath, maintaining O2 sats in the high 90s on room air. Chest x-ray reporting increased right basilar airspace opacity and small right pleural effusion, haziness of the left costophrenic angle, atelectasis. Mild tachycardia .LFTs trending down. WBC down to 17.8. Evaluated by oncology, recommendations noted including bone scan and liver biopsy. 06/06/20 bone scan completed yesterday reported no focal uptake suspicious for metastatic disease.completed liver biopsy, tolerated well. Pathology pending. Abdomen distended with questionable ascites as mentioned per CT. telemetry reporting controlled A. fib with heart rate in the 70s to 80s, Objective - Vital Signs Vital signs: Vital Signs Temp 97.9 F 06/06/20 08:00 Pulse 81 06/06/20 10:43 Resp 18 06/06/20 10:43 BP 112/74 06/06/20 10:43 Pulse Ox 96 06/06/20 10:43 Intake & Output 06/05/20 06/06/20 06/06/20 18:59 06:59 18:59 Intake Total 480 500 Output Total 0 Balance 480 500 Weight 110.9 kg Intake: IV 500 Vancomycin 1,750 mg In 500 Sodium Chloride 0.9% 500 ml 500 ml @ 167 mls/hr IVPB Q16H [facility] Rx#: [id number] Oral 480 Output: Urine 0 Other: Voiding Method Toilet # Voids 3 2 # Bowel Movements 2 - Exam General: [Patient awake, alert and oriented times 3. Patient in no acute distress.] HEENT: [PERRL. EOMI. No pharyngeal erythema or exudate.] Neck: [No adenopathy.] Cardiac: [Regular S1, S2 , Irregular, No S3. No S4. No clicks, rubs. No murmur.] Lungs: [Mildly increased respiratory effort Clear to auscultation bilaterally.] Abdomen: [Distended, nontender,minimal ascites possibly, No mass. No organomegaly. Bowel sounds presnt and normoactive in all 4 quadrants.] Extremes: no edema, no cyanosis no claudication normal pulses] Musculoskeletal: [No joint erythema, edema or tenderness.] Skin: [No rash.] Neurologic: [No lateralizing deficits. CN II - XII grossly intact.] - Labs CBC & Chem 7: 06/06/20 06:18 06/06/20 06:18 Labs: Abnormal Lab Results - Last 24 Hours (Table) 06/05/20 06/05/20 06/05/20 Range/Units 04:24 12:17 16:55 WBC (3.8-10.6) k/uL RBC (4.30-5.90) m/uL Hgb (13.0-17.5) gm/dL Hct (39.0-53.0) % MCHC (31.0-37.0) g/dL Neutrophils # (1.3-7.7) k/uL PT (9.0-12.0) sec INR (<1.2) Chloride (98-107) mmol/L Carbon Dioxide (22-30) mmol/L BUN (9-20) mg/dL Creatinine (0.66-1.25) mg/dL Glucose (74-99) mg/dL POC Glucose (mg/dL) 140 H 123 H (75-99) mg/dL AST (17-59) U/L ALT (4-49) U/L Alkaline Phosphatase (38-126) U/L Total Protein (6.3-8.2) g/dL Albumin (3.5-5.0) g/dL Hepatitis A Ab Total Reactive H (Non-Reactive) 06/05/20 06/06/20 06/06/20 Range/Units 20:52 06:08 06:18 WBC (3.8-10.6) k/uL RBC (4.30-5.90) m/uL Hgb (13.0-17.5) gm/dL Hct (39.0-53.0) % MCHC (31.0-37.0) g/dL Neutrophils # (1.3-7.7) k/uL PT 12.3 H (9.0-12.0) sec INR 1.2 H (<1.2) Chloride (98-107) mmol/L Carbon Dioxide (22-30) mmol/L BUN (9-20) mg/dL Creatinine (0.66-1.25) mg/dL Glucose (74-99) mg/dL POC Glucose (mg/dL) 156 H 115 H (75-99) mg/dL AST (17-59) U/L ALT (4-49) U/L Alkaline Phosphatase (38-126) U/L Total Protein (6.3-8.2) g/dL Albumin (3.5-5.0) g/dL Hepatitis A Ab Total (Non-Reactive) 06/06/20 06/06/20 Range/Units 06:18 06:18 WBC 19.4 H (3.8-10.6) k/uL RBC 3.67 L (4.30-5.90) m/uL Hgb 10.9 L (13.0-17.5) gm/dL Hct 36.5 L (39.0-53.0) % MCHC 29.8 L (31.0-37.0) g/dL Neutrophils # 16.5 H (1.3-7.7) k/uL PT (9.0-12.0) sec INR (<1.2) Chloride 109 H (98-107) mmol/L Carbon Dioxide 21 L (22-30) mmol/L BUN 28 H (9-20) mg/dL Creatinine 1.45 H (0.66-1.25) mg/dL Glucose 100 H (74-99) mg/dL POC Glucose (mg/dL) (75-99) mg/dL AST 134 H (17-59) U/L ALT 88 H (4-49) U/L Alkaline Phosphatase 874 H (38-126) U/L Total Protein 5.3 L (6.3-8.2) g/dL Albumin 2.2 L (3.5-5.0) g/dL Hepatitis A Ab Total (Non-Reactive) Microbiology - Last 24 Hours (Table) 06/02/20 14:16 Blood Culture - Preliminary Blood No Growth after 72 hours Assessment and Plan Assessment: (1) Metastasis to liver of unknown origin, possible metastatic disease, status post liver biopsy Current Visit: Yes Status: Acute Code(s): C78.7 - SECONDARY MALIG NEOPLASM OF LIVER AND INTRAHEPATIC BILE DUCT; C80.1 - MALIGNANT (PRIMARY) NEOPLASM, UNSPECIFIED SNOMED Code(s): 147333903 (2) Liver cirrhosis, as per CT, (3) Coumadin toxicity Narrative/Plan: Normalized Current Visit: Yes Status: Acute Code(s): T45.511A - POISONING BY ANTICOAGULANTS, ACCIDENTAL, INIT SNOMED Code(s): 06047757 (4) Gallbladder contraction Current Visit: Yes Status: Acute Code(s): K82.0 - OBSTRUCTION OF GALLBLADDER SNOMED Code(s): 828355447 (5) Lactic acidosis, nonspecific Narrative/Plan: Also normalized Current Visit: Yes Status: Acute Code(s): E87.2 - ACIDOSIS SNOMED Code(s): 08934056 (6) Sepsis Narrative/Plan: Patient has been fluid resuscitated currently on IV antibiotics appears to be hemodynamically stable Current Visit: Yes Status: Acute Code(s): A41.9 - SEPSIS, UNSPECIFIED ORGANISM SNOMED Code(s): 44140005 (7) Rectal bleeding Narrative/Plan: Persistent but much less than when he was admitted when the INR was elevated Current Visit: No Status: Acute Code(s): K62.5 - HEMORRHAGE OF ANUS AND RECTUM SNOMED Code(s): 25237344 (8) Venous insufficiency of leg Current Visit: No Status: Acute Code(s): I87.2 - VENOUS INSUFFICIENCY (CHRONIC) (PERIPHERAL) SNOMED Code(s): 515776972 (9) diabetes mellitus (10) chronic A. fib, uncontrolled (11) remote history of head trauma, contusion (12) hypertension (13) pulmonary hypertension (14) history of alcoholism and nicotine dependence, quit both in 2005. Plan: Continue on current medication regime ,monitoring and symptomatic treatment. Status post liver biopsy, pathology pending. GI consulted regarding questionable ascites. Anticoagulation to be resumed as per cardiology/hematology. PT/OT. Prognosis guarded given multiple complex medical issues. Discharge planning in progress for the next 24-48 hours. The impression and plan of care has been dictated as directed. : I performed a history and examination of this patient, discussed the same with the dictator. I agree with the dictator's note ,documented as a scribe. Any additional findings or plans will be noted.
[2020-06-06] MEDS: VANCOMYCIN 1,750 MG in SODIUM CHLORIDE 0.9% 500 ML 500 ML IVPB SCH (19:57)
--- NOTE | 2020-06-06 20:38 | CONS ---
CONSULTATION DATE OF DICTATION: 06/06/2020 REASON FOR CONSULTATION: Ascites. HISTORY OF PRESENT ILLNESS: The patient is a 75-year-old pleasant white male who was admitted because of generalized weakness, fatigue, not feeling well. He came to the emergency room and was noted to have elevated INR at 9 and was subsequently admitted to the intensive care unit. The patient was not having any GI bleeding. No abdominal pain. No nausea, vomiting. At the time of admission to the hospital he was noted to have abnormal labs with AST of 173, ALT of 91, T-bilirubin of 1.2 and alkaline phosphatase of 965. He had an ultrasound of the liver done that showed heterogeneous liver with multiple liver masses, likely representing diffuse metastatic disease. Subsequently he had a CT of the chest, abdomen and pelvis done that showed heterogeneous-appearing enlarged liver suspicious for extensive metastases. Oncology has been consulted. Alpha fetoprotein was elevated at 519. He underwent a liver biopsy this morning, results of which are still pending. We are consulted because of mild ascites. The patient denies any prior history of chronic liver disease. He has remote history of occasional alcohol use. No history of jaundice or hepatitis in the past. PAST MEDICAL HISTORY: His past medical history is significant for diabetes mellitus, hypertension, hyperlipidemia. HOME MEDICATIONS: Levemir, NovoLog, Glucophage, Zocor, Lopressor, diltiazem and Rocaltrol. ALLERGIES: NONE. SOCIAL HISTORY: No smoking. Occasional alcohol use. PAST SURGICAL HISTORY: Bilateral cataract surgery, hernia repair, colonoscopy in the past. PAST FAMILY HISTORY: Mother had hypertension. Father unremarkable. REVIEW OF SYSTEMS: CARDIOPULMONARY: No chest pain or shortness of breath. GENITOURINARY: No dysuria or hematuria. MUSCULOSKELETAL: Unremarkable. SKIN: Unremarkable. ENDOCRINE: Unremarkable. PSYCHIATRIC: Unremarkable. NEUROLOGY: Unremarkable. ENT/VISION: Unremarkable. GI: Abdominal distention. CONSTITUTIONAL: Fatigue, weakness. No fever, chills, night sweats. PHYSICAL EXAMINATION: He appears comfortable. No apparent distress. Vital signs are stable. Blood pressure 124/69, pulse rate 95, temperature 97.7. HEENT examination unremarkable. Conjunctivae pink. Sclerae slightly icteric. Oral cavity no lesions. NECK: No JVD or lymph node enlargement. CHEST: Clear to auscultation. HEART: Regular rate and rhythm. ABDOMEN: Obese. There was generalized edema noted in the anterior abdominal wall. No free fluid appreciated. Liver and spleen were not palpable. EXTREMITIES: Pedal edema with hyperkeratosis of the skin noted. NEUROLOGIC: Alert and oriented x3. No focal deficits. LABS: Labs today: WBC 19.4, hemoglobin 10.9, platelets 263. PT/INR 12.3/1.2. Labs show AST and ALT are 134 and 88, respectively. T-bilirubin 1.2, alkaline phosphatase 874. Hepatitis A antibody total positive. Hepatitis C antibody negative. Alpha fetoprotein is 519. IMPRESSION: 1. Elevated liver function tests and significant elevation of alkaline phosphatase, all consistent with infiltrative disease. Ultrasound and CT scan showed heterogeneous enlarged liver suspicious for metastasis, status post ultrasound- guided liver biopsy this morning. Results are still pending. 2. Elevated alpha fetoprotein. Rule out hepatocellular carcinoma. 3. Mild ascites. 4. Leukocytosis. 5. Chronic atrial fibrillation which is well controlled. 6. Diabetes mellitus. RECOMMENDATIONS: 1. Await liver biopsy results. 2. We will start him on Lasix 40 mg daily and Aldactone 50 mg daily. 3. Low-salt diet. 4. Repeat labs in the morning. 5. Will follow with you closely. Thank you for this consultation. MMODL / IJN: [id number] /
[2020-06-06 21:08] LABS: Glucose,Whole Blood 124 mg/dL (75-99)
[2020-06-07] MEDS: ACETAMINOPHEN TAB 325 MG TAB PO PRN ×4 (02:59→22:26)
[2020-06-07 06:15] LABS: Glucose,Whole Blood 116 mg/dL (75-99)
[2020-06-07] MEDS: INSULIN ASPART (NovoLOG) 100 UNIT/ML VIAL SQ SCH ×4 (07:18→22:29)
[2020-06-07 07:24] LABS: Basophils # (A) 0.1 k/uL (0-0.2); Basophils % (A) 0 %; Eosinophils # (A) 0.1 k/uL (0-0.7); Eosinophils % (A) 1 %; HCT 36.2 % (39.0-53.0); HGB 11.1 gm/dL (13.0-17.5); Hypochromasia Moderate; Lymphocytes # (A) 1.7 k/uL (1.0-4.8); Lymphocytes % (A) 10 %; MCH 30.2 pg (25.0-35.0); MCHC 30.6 g/dL (31.0-37.0); MCV 98.6 fL (80.0-100.0); Macrocytosis Slight; Mean Platelet Volume 8.8; Monocytes # (A) 0.7 k/uL (0-1.0); Monocytes % (A) 4 %; Neutrophils # (A) 15.2 k/uL (1.3-7.7); Neutrophils % (A) 85 %; Platelet Count 228 k/uL (150-450); RBC 3.67 m/uL (4.30-5.90); RDW 15.2 % (11.5-15.5); WBC 17.9 k/uL (3.8-10.6)
[2020-06-07 07:35] LABS: Calcium 8.5 mg/dL (8.4-10.2); Potassium 4.8 mmol/L (3.5-5.1)
[2020-06-07] MEDS: FUROSEMIDE 40 MG TAB PO SCH (08:50)
[2020-06-07] MEDS: SPIRONOLACTONE 25 MG TAB PO SCH (08:50)
[2020-06-07] MEDS: METOPROLOL TARTRATE 50 MG TAB PO SCH ×2 (08:51→20:03)
[2020-06-07] MEDS: DILTIAZEM CD 180 MG CAP.ER.24H PO SCH (08:52)
--- NOTE | 2020-06-07 11:21 | P.CRDCN ---
History of Present Illness Consult date: 06/07/20 History of present illness: CHIEF COMPLAINT: Anticoagulation recommendations HISTORY OF PRESENT ILLNESS: 75-year-old male with a history of atrial fibrillation, diabetes mellitus, hypertension, and hyperlipidemia who presented to the emergency room secondary to abnormal labs that the patient had drawn an outpatient basis. Patient used to follow in the office with Dr. Downey, who has since retired. Patients INR was found to be greater than 10 upon admission. Patient had a computed tomography scan completed revealing possible liver metastasis and he underwent a liver biopsy yesterday. Results are pending. Patient examined this point the bedside. He denies chest pain. Denies shortness of breath. Reports lower extremity edema. Blood pressure stable. 105/65. Heart rate in the 80s. DIAGNOSTICS: EKG reveals atrial fibrillation Chest xray increased size of right basilar airspace opacity and small right pleural effusion. Haziness of the left costophrenic angle likely atelectasis. Laboratory data: INR greater than 10 upon admission. Most recent INR 1.2. WBC 17.9. Hemoglobin 11.1. Platelet count 128. Sodium 135. Potassium 4.8. BUN 35. Creatinine 1.77. AST 134. ALT 88. Alkaline phosphatase 874. Tumor marker AFP 519.2 Current home cardiac medications include Zocor 20 mg daily, Lopressor 50 mg twice a day, Cardizem 180 mg daily REVIEW OF SYSTEMS: CONSTITUTIONAL: Denies fever or chills. HEENT: Denies blurred vision, vision changes, or eye pain. Denies hemoptysis CARDIOVASCULAR: Denies chest pain, orthopnea, PND or palpitations RESPIRATORY: No shortness of breath. GASTROINTESTINAL: Denies abdominal pain. Denies nausea or vomiting. HEMATOLOGIC: Denies bleeding disorders. GENITOURINARY: Denies any blood in urine. SKIN: Denies pruitis. Denies rash. PHYSICAL EXAM: VITAL SIGNS: Reviewed. GENERAL: Well-developed in no acute distress. HEENT: Head is normocephalic. Pupils are equal, round. Sclerae anicteric. Mucous membranes of the mouth are moist. Neck supple. No JVD or thyromegaly LUNGS: Respirations even and unlabored. Lungs essentially clear to auscultation bilaterally. HEART: Regular rate and rhythm. S1 and S2 heard. ABDOMEN: Soft. Nontender. EXTREMITIES: Normal range of motion. No clubbing or cyanosis. Peripheral pulses intact. Bilateral lower extremity edema NEUROLOGIC: Awake and alert. Oriented x 3. 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 Patient agreeable to withholding anticoagulation at this time Patient may follow up outpatient with Dr. Chino Nurse practitioner note has been reviewed by physician. Signing provider agrees with the documented findings, assessment, and plan of care. Past Medical History Past Medical History: Atrial Fibrillation, Diabetes Mellitus, Hyperlipidemia, Hypertension, Renal Disease, Vascular Disorder Additional Past Medical History / Comment(s): Per past medical record pt has hx CHF/pulmonary htn but pt/spouse do not recall this, IDDM type II, chronic renal disease, lower GI bleed pt thinks attributed to hemorrhoids, PVD, past L lower leg wound-healed, occasional bilateral lower leg edema, back pain, 2010 head trauma/contusion with L sided symptoms/seizure-no residual, past heavy drinking but quit in 2005. History of Any Multi-Drug Resistant Organisms: None Reported Past Surgical History: Hernia Repair Additional Past Surgical History / Comment(s): R inguinal hernia repair, colonoscopy, bilateral cataract removals/lens implant, pt unsure if had tonsillectomy. Past Anesthesia/Blood Transfusion Reactions: No Reported Reaction Smoking Status: Former smoker - Past Family History Mother Family Medical History: Hypertension Father History Unknown: Yes Family Medical History: No Reported History Medications and Allergies Home Medications Medication Instructions Recorded Confirmed Type INSULIN ASPART (NovoLOG) [NovoLOG] See Protocol SQ AC-TID 11/01/14 06/02/20 History Insulin Detemir (Levemir) [Levemir] 36 unit SQ DAILY 11/01/14 06/02/20 History Metoprolol Tartrate [Lopressor] 50 mg PO BID 11/01/14 06/02/20 History Simvastatin [Zocor] 20 mg PO HS 11/01/14 06/02/20 History metFORMIN HCL [Glucophage] 500 mg PO BID 11/01/14 06/02/20 History Calcitriol [Rocaltrol] 0.25 mcg PO WE@2100 06/02/20 06/02/20 History Diltiazem HCl [Diltiazem HCl 24Hr 180 mg PO DAILY 06/02/20 06/02/20 History ER] Allergies Allergy/AdvReac Type Severity Reaction Status Date / Time No Known Allergies Allergy Verified 06/02/20 12:37 Physical Exam Vitals: Vital Signs Temp Pulse Resp BP Pulse Ox 06/07/20 08:00 97.3 F L 82 20 105/65 97 06/07/20 04:00 87 19 109/63 95 06/07/20 00:00 99 20 107/66 96 06/06/20 20:00 97.8 F 98 19 113/59 98 06/06/20 17:14 97.7 F 95 20 124/69 97 06/06/20 12:24 78 18 105/59 96 06/06/20 11:54 98.6 F 85 22 114/71 96 Intake and Output 06/06/20 06/07/20 06/07/20 22:59 06:59 14:59 Intake Total 1800 Balance 1800 Intake: IV 1000 Vancomycin 1,750 mg In 1000 Sodium Chloride 0.9% 500 ml 500 ml @ 167 mls/hr IVPB Q16H [facility] Rx#: [id number] Oral 800 Other: Voiding Method Toilet Toilet # Voids 1 # Bowel Movements 1 Weight 112 kg Results 06/07/20 06:53 06/07/20 06:53 CBC 06/07/20 Range/Units 06:53 WBC 17.9 H (3.8-10.6) k/uL RBC 3.67 L (4.30-5.90) m/uL Hgb 11.1 L (13.0-17.5) gm/dL Hct 36.2 L (39.0-53.0) % Plt Count 228 (150-450) k/uL Comprehensive Metabolic Panel 06/07/20 Range/Units 06:53 Sodium 135 L (137-145) mmol/L Potassium 4.8 (3.5-5.1) mmol/L Chloride 109 H (98-107) mmol/L Carbon Dioxide 21 L (22-30) mmol/L BUN 35 H (9-20) mg/dL Creatinine 1.77 H (0.66-1.25) mg/dL Glucose 113 H (74-99) mg/dL Calcium 8.5 (8.4-10.2) mg/dL Current Medications Generic Name Dose Route Start Last Admin Trade Name Freq PRN Reason Stop Dose Admin Acetaminophen 650 mg 06/02/20 13:44 06/07/20 08:51 Tylenol Tab PO 650 mg Q6HR PRN Administration Mild Pain or Fever > 100.5 Calcitriol 0.25 mcg 06/07/20 21:00 Rocaltrol PO WE@2100 [facility] Diltiazem HCl 360 mg 06/05/20 09:00 06/07/20 08:52 Cardizem Cd PO 360 mg DAILY [facility] Administration Furosemide 40 mg 06/07/20 09:00 06/07/20 08:50 Lasix PO 40 mg DAILY [facility] Administration Vancomycin HCl 1,750 mg/ 500 mls @ 167 mls/hr 06/06/20 20:00 06/06/20 19:57 Sodium Chloride IVPB 167 mls/hr Q24H [facility] Administration Insulin Aspart 0 unit 06/02/20 21:00 06/07/20 07:18 Novolog SQ Not Given ACHS [facility] Protocol Metoprolol Tartrate 50 mg 06/02/20 21:00 06/07/20 08:51 Lopressor PO 50 mg BID [facility] Administration Naloxone HCl 0.2 mg 06/02/20 13:44 Narcan IV Q2M PRN Opioid Reversal Spironolactone 50 mg 06/07/20 09:00 06/07/20 08:50 Aldactone PO 50 mg DAILY [facility] Administration Intake and Output 06/06/20 06/07/20 06/07/20 22:59 06:59 14:59 Intake Total 1800 Balance 1800 Intake: IV 1000 Vancomycin 1,750 mg In 1000 Sodium Chloride 0.9% 500 ml 500 ml @ 167 mls/hr IVPB Q16H [facility] Rx#: [id number] Oral 800 Other: Voiding Method Toilet Toilet # Voids 1 # Bowel Movements 1 Weight 112 kg 06/07/20 06:53 06/07/20 06:53
[2020-06-07 11:44] LABS: Glucose,Whole Blood 119 mg/dL (75-99)
--- NOTE | 2020-06-07 12:28 | US ---
EXAMINATION TYPE: US venous doppler duplex LE DATE OF EXAM: 06/07/2020 11:31 AM COMPARISON: NONE CLINICAL HISTORY: cold left leg; weak pulses; edema. Cold left leg, swelling SIDE PERFORMED: Bilateral TECHNIQUE: The lower extremity deep venous system is examined utilizing real time linear array sonog payam with graded compression, doppler sonography and color-flow sonography. VESSELS IMAGED: External Iliac Vein (EIV) Common Femoral Vein Deep Femoral Vein Greater Saphenous Vein * Femoral Vein Popliteal Vein Small Saphenous Vein * Proximal Calf Veins (* superficial vessels) There is normal flow, compressibility, vascular waveforms Right Leg: Negative for DVT Left Leg: Negative for DVT IMPRESSION: No evident deep venous thrombosis at or above the knees.
--- NOTE | 2020-06-07 12:47 | US ---
EXAMINATION TYPE: US abdomen limited DATE OF EXAM: 06/07/2020 COMPARISON: NONE CLINICAL HISTORY: assess for fluid pocket please. assess for fluid pocket Minimal fluid noted within abdomen, greatest pocket within LLQ Incidental multiple low dense foci are present within the liver. IMPRESSION: There is a small amount of ascites. Incidental liver masses.
--- NOTE | 2020-06-07 12:52 | CDI ---
Documentation Clarification Form Date: 06/07/2020 12:34:39 PM From: Rebecca Doan CCS, CCDS Admit Date: 06/02/2020 01:45:00 PM Patient Name: Will Howard Visit Number: [id number] Discharge Date: ATTENTION: The Clinical Documentation Specialists (CDI) and [facility] Coding Staff appreciate your assistance in clarifying documentation. Please respond to the clarification below the line at the bottom and electronically sign. The CDI & [facility] Coding staff will review the response and follow-up if needed. Please note: Queries are made part of the Legal Health Record. If you have any questions, please contact the author of this message via ITS. Dr. Marlee Funes: CHF & Heart Failure not otherwise specified is documented in the 06/03 History & Physical, the 06/02 Pulmonary Consult, the 06/05 Oncology Consult and the 06/07 Cardiology Consult. History/Risk Factors: CHF is documented in the patient's history but the patient & patient's spouse do not recall CHF; Atrial Fibrillation, DM II, Hyperlipidemia, Hypertension, CKD III, Venous Insufficiency, Occasional bilateral lower leg edema and Former smoker. Clinical Indicators: The patient presented to the ED on 06/02 for evaluation of abnormal labs, generalized weakness & fatigue. INR elevated >9. Per the History & Physical, the patient is admitted with Sepsis, Lactic acidosis, Rectal bleeding (known hemorrhoids), Venous insufficiency of legs, Coumadin toxicity and possible metastasis to Liver with unknown origin. VS 06/02: T 98.8, P 127^, R 20 (sob), BP 110/64, PO 98 RA - 2Lnc BMI: 35.4 BNP 06/02: 3450 Echocardiogram Results: Not done this admission, no historical ECHO to review. Chest X Ray 06/02: No evidence of acute pulmonary disease. CXR 06/05: Increased size of right basilar airspace opacity & small right pleural effusion. Haziness of left costophrenic angle likely atelectasis. Treatment on admission 06/02: IV fluid bolus 1,000 mls @ 999/hr, IV Zosyn, IV fluid rate 1,000 mls @ 130/hr, IV Phytonadione, IV Vancomycin. PO Lasix 40 mg daily on 06/07. 06/07 Cardiology consulted for anticoagulation recommendations: Lower extremity edema. EKG: Atrial fibrillation & CXR noted. Recommend continue po Lasix 40 mg daily & Aldactone 50 mg daily. In your professional opinion, can you please clarify the acuity and type of CHF if known? Heart Failure is ruled out Systolic Heart Failure: o Acute o Chronic o Acute on Chronic Diastolic Heart Failure: o Acute o Chronic o Acute on Chronic Systolic & Diastolic Heart Failure: o Acute o Chronic o Acute on Chronic Heart Failure Unable to Determine Other, please specify (Last Revision: January 2018) MTDD
--- NOTE | 2020-06-07 13:02 | P.PN ---
Subjective Progress Note Date: 06/07/20 Principal diagnosis: liver lesions In f/u today pt has no acute c/o, denies any numbness or tingling in his extremities, he can ambulate independently at this time. His liver biopsy site is not too sore, no unusual swelling. No other c/o on a 10 point ROS Objective - Vital Signs Vital signs: Vital Signs Temp 97.9 F 06/07/20 11:56 Pulse 74 06/07/20 11:56 Resp 18 06/07/20 11:56 BP 103/65 06/07/20 11:56 Pulse Ox 97 06/07/20 11:56 Intake & Output 06/06/20 06/07/20 06/07/20 18:59 06:59 18:59 Intake Total 200 1800 250 Balance 200 1800 250 Weight 112 kg Intake: IV 1000 Vancomycin 1,750 mg In 1000 Sodium Chloride 0.9% 500 ml 500 ml @ 167 mls/hr IVPB Q16H [facility] Rx#: [id number] Oral 200 800 250 Other: Voiding Method Toilet # Voids 1 1 # Bowel Movements 1 1 - Constitutional Constitutional Comment(s): Thin upper body and extremities, large abd General appearance: Present: cooperative, no acute distress - EENT Eyes: Present: anicteric sclerae, EOMI ENT: Present: hearing grossly normal - Respiratory Respiratory: bilateral: CTA - Cardiovascular Details: lower extremities are cool to tough, pt can feel touch to the plantar surface, tips of toes do vianney when pressed Heart sounds: normal: S1, S2 - Peripheral edema leg Peripheral Edema: bilateral: 1+ - Gastrointestinal Gastrointestinal Comment(s): bandaid over RUQ biopsy site is clean, no pain, bruising or unusual swelling General gastrointestinal: Present: distended, soft - Neurologic Neurologic: Present: CNII-XII intact - Musculoskeletal Musculoskeletal: Present: generalized weakness, strength equal bilaterally - Psychiatric Psychiatric: Present: A&O x's 3, appropriate affect, intact judgment & insight - Labs CBC & Chem 7: 06/07/20 06:53 06/07/20 06:53 Labs: Abnormal Lab Results - Last 24 Hours (Table) 06/06/20 06/06/20 06/07/20 Range/Units 16:51 21:06 06:13 WBC (3.8-10.6) k/uL RBC (4.30-5.90) m/uL Hgb (13.0-17.5) gm/dL Hct (39.0-53.0) % MCHC (31.0-37.0) g/dL Neutrophils # (1.3-7.7) k/uL Sodium (137-145) mmol/L Chloride (98-107) mmol/L Carbon Dioxide (22-30) mmol/L BUN (9-20) mg/dL Creatinine (0.66-1.25) mg/dL Glucose (74-99) mg/dL POC Glucose (mg/dL) 174 H 124 H 116 H (75-99) mg/dL 06/07/20 06/07/20 06/07/20 Range/Units 06:53 06:53 11:43 WBC 17.9 H (3.8-10.6) k/uL RBC 3.67 L (4.30-5.90) m/uL Hgb 11.1 L (13.0-17.5) gm/dL Hct 36.2 L (39.0-53.0) % MCHC 30.6 L (31.0-37.0) g/dL Neutrophils # 15.2 H (1.3-7.7) k/uL Sodium 135 L (137-145) mmol/L Chloride 109 H (98-107) mmol/L Carbon Dioxide 21 L (22-30) mmol/L BUN 35 H (9-20) mg/dL Creatinine 1.77 H (0.66-1.25) mg/dL Glucose 113 H (74-99) mg/dL POC Glucose (mg/dL) 119 H (75-99) mg/dL Microbiology - Last 24 Hours (Table) 06/02/20 14:16 Blood Culture - Preliminary Blood No Growth after 96 hours - Imaging and Cardiology NM BS report reviewed Assessment and Plan (1) Liver lesion Narrative/Plan: Reviewed NM bone scan results, no evidence of metastatic disease. Currently there are only identifiable lesions within the liver. Pending biopsy results. He understands that the liver biopsy will tell us the origin of the lesions and then we will be able to develop a prognosis and treatment option plan. Patient verbalized understanding and is agreeable to the same. AFP 519, CEA 1, CA-19-9 32.5. Current Visit: Yes Status: Acute Priority: High Code(s): K76.9 - LIVER DISEASE, UNSPECIFIED SNOMED Code(s): 630337619 (2) Supratherapeutic INR Narrative/Plan: INR regulation is going to be difficult with liver disease. May have to consider one of the NOAC. Cardiology input regarding A. fib and control suggested. Current Visit: Yes Status: Acute Priority: High Code(s): R79.1 - ABNORMAL COAGULATION PROFILE SNOMED Code(s): 465493062
--- NOTE | 2020-06-07 16:37 | P.PN ---
Subjective Progress Note Date: 06/07/20 Principal diagnosis: Ascites This is a 75-year-old male who was admitted because of generalized weakness, fatigue, and not feeling well. He subsequently was found to have an INR of 9. At the time of admission he was found to have abnormally elevated liver enzymes subsequently he had an ultrasound of the liver which showed multiple liver masses, likely representing diffuse metastatic disease. He also had a CT of the chest abdomen and pelvis did show heterogeneous appearing enlarged liver suspicious of extensive metastases. He denies any signs or symptoms of bleeding, denies any rectal bleeding, melena, hematemesis, nausea, or vomiting. Denies any abdominal pain or abdominal swelling. He underwent a liver biopsy yesterday results are still pending. Oncology has been consulted. Objective - Vital Signs Vital signs: Vital Signs Temp 97.5 F L 06/07/20 14:58 Pulse 74 06/07/20 14:58 Resp 20 06/07/20 14:58 BP 95/52 06/07/20 14:58 Pulse Ox 97 06/07/20 14:58 Intake & Output 06/06/20 06/07/20 06/07/20 18:59 06:59 18:59 Intake Total 200 1800 490 Balance 200 1800 490 Weight 112 kg Intake: IV 1000 Vancomycin 1,750 mg In 1000 Sodium Chloride 0.9% 500 ml 500 ml @ 167 mls/hr IVPB Q16H [facility] Rx#: [id number] Oral 200 800 490 Other: Voiding Method Toilet # Voids 1 1 # Bowel Movements 1 1 - Exam General appearance: The patient appears comforatable, is alert, oriented, in no acute distress. HET: Head is normocephalic and atraumatic. Conjunctiva pink. Sclerae slightly icteric. Oral cavity no lesions. Neck: Supple without lymphadenopathy. Heart: S1 S2. Regular rate and rhythm. Lungs: No crackles or wheezes are heard. Abdomen: Obese. Generalized edema noted in the anterior abdominal wall. No free fluid appreciated. Liver and spleen were not palpable. Extremities: Normal skin color and turgor. Bilateral pedal edema. Neurological: Oriented 3, No focal deficits. - Labs CBC & Chem 7: 06/07/20 06:53 06/07/20 06:53 Labs: Abnormal Lab Results - Last 24 Hours (Table) 06/06/20 06/06/20 06/07/20 Range/Units 16:51 21:06 06:13 WBC (3.8-10.6) k/uL RBC (4.30-5.90) m/uL Hgb (13.0-17.5) gm/dL Hct (39.0-53.0) % MCHC (31.0-37.0) g/dL Neutrophils # (1.3-7.7) k/uL Sodium (137-145) mmol/L Chloride (98-107) mmol/L Carbon Dioxide (22-30) mmol/L BUN (9-20) mg/dL Creatinine (0.66-1.25) mg/dL Glucose (74-99) mg/dL POC Glucose (mg/dL) 174 H 124 H 116 H (75-99) mg/dL 06/07/20 06/07/20 06/07/20 Range/Units 06:53 06:53 11:43 WBC 17.9 H (3.8-10.6) k/uL RBC 3.67 L (4.30-5.90) m/uL Hgb 11.1 L (13.0-17.5) gm/dL Hct 36.2 L (39.0-53.0) % MCHC 30.6 L (31.0-37.0) g/dL Neutrophils # 15.2 H (1.3-7.7) k/uL Sodium 135 L (137-145) mmol/L Chloride 109 H (98-107) mmol/L Carbon Dioxide 21 L (22-30) mmol/L BUN 35 H (9-20) mg/dL Creatinine 1.77 H (0.66-1.25) mg/dL Glucose 113 H (74-99) mg/dL POC Glucose (mg/dL) 119 H (75-99) mg/dL Microbiology - Last 24 Hours (Table) 06/02/20 14:16 Blood Culture - Preliminary Blood No Growth after 96 hours Assessment and Plan Assessment: 1. Elevated liver function tests and significant elevation of alkaline phosphatase, all consistent with infiltrative disease. Ultrasound and computed tomography scan showed heterogeneous enlarged liver suspicious for metastasis, status post ultrasound- guided liver biopsy. Results are still pending. 2. Elevated alpha-fetoprotein. Rule out hepatocellular carcinoma. 3. Mild ascites 4. Leukocytosis 5. Chronic atrial fibrillation, well-controlled 6. Diabetes mellitus Plan: 1. Await liver biopsy results 2. Patient started on Lasix 40 mg daily and Aldactone 50 mg daily 3. Low sodium diet 4. Repeat daily labs 5. Ultrasound paracentesis order to evaluate ascites, only scant fluid pocket noted. 6. Will follow with you closely. The impression and plan of care has been dictated as directed. Dr. Rosetta Ramirez I performed a history and examination of this patient, discussed the same with the dictator. I agree with the dictator's note ,documented as a scribe. Any additional findings or plans will be noted.
[2020-06-07 16:38] LABS: Glucose,Whole Blood 136 mg/dL (75-99)
[2020-06-07] MEDS: VANCOMYCIN 1,750 MG in SODIUM CHLORIDE 0.9% 500 ML 500 ML IVPB SCH (20:03)
[2020-06-07 20:26] LABS: Glucose,Whole Blood 180 mg/dL (75-99)
[2020-06-08 06:58] LABS: Glucose,Whole Blood 116 mg/dL (75-99)
[2020-06-08] MEDS: ACETAMINOPHEN TAB 325 MG TAB PO PRN ×2 (06:59→17:05)
[2020-06-08] MEDS: INSULIN ASPART (NovoLOG) 100 UNIT/ML VIAL SQ SCH ×4 (07:03→22:06)
[2020-06-08 07:29] LABS: HCT 39.1 % (39.0-53.0); HGB 12.2 gm/dL (13.0-17.5); Hypochromasia Marked; MCH 31.2 pg (25.0-35.0); MCHC 31.1 g/dL (31.0-37.0); MCV 100.2 fL (80.0-100.0); Macrocytosis Slight; Mean Platelet Volume 9.4; Platelet Count 239 k/uL (150-450); RBC 3.91 m/uL (4.30-5.90); RDW 15.7 % (11.5-15.5); WBC 23.1 k/uL (3.8-10.6)
[2020-06-08 07:57] LABS: Calcium 9.1 mg/dL (8.4-10.2); Potassium 4.6 mmol/L (3.5-5.1)
[2020-06-08] MEDS: DILTIAZEM CD 180 MG CAP.ER.24H PO SCH (08:25)
[2020-06-08] MEDS: METOPROLOL TARTRATE 50 MG TAB PO SCH ×2 (08:26→22:08)
[2020-06-08] MEDS: FUROSEMIDE 40 MG TAB PO SCH (08:26)
[2020-06-08] MEDS: SPIRONOLACTONE 25 MG TAB PO SCH (08:26)
--- NOTE | 2020-06-08 08:46 | CDI ---
Documentation Clarification Form Date: 06/07/2020 12:34:00 PM From: Rebecca Doan CCS, CCDS Admit Date: 06/02/2020 01:45:00 PM Patient Name: Will Howard Visit Number: [id number] Discharge Date: ATTENTION: The Clinical Documentation Specialists (CDI) and [facility] Coding Staff appreciate your assistance in clarifying documentation. Please respond to the clarification below the line at the bottom and electronically sign. The CDI & [facility] Coding staff will review the response and follow-up if needed. Please note: Queries are made part of the Legal Health Record. If you have any questions, please contact the author of this message via ITS. Dr. Marlee Funes: CHF & Heart Failure not otherwise specified is documented in the 06/03 History & Physical, the 06/02 Pulmonary Consult, the 06/05 Oncology Consult and the 06/07 Cardiology Consult. History/Risk Factors: CHF is documented in the patient's history but the patient & patient's spouse do not recall CHF; Atrial Fibrillation, DM II, Hyperlipidemia, Hypertension, CKD III, Venous Insufficiency, Occasional bilateral lower leg edema and Former smoker. Clinical Indicators: The patient presented to the ED on 06/02 for evaluation of abnormal labs, generalized weakness & fatigue. INR elevated >9. Per the History & Physical, the patient is admitted with Sepsis, Lactic acidosis, Rectal bleeding (known hemorrhoids), Venous insufficiency of legs, Coumadin toxicity and possible metastasis to the Liver with unknown origin. VS 06/02: T 98.8, P 127^, R 20 (sob), BP 110/64, PO 98 RA - 2Lnc BMI: 35.4 BNP 06/02: 3450 Echocardiogram Results: Not done this admission, no historical ECHO to review. Chest X Ray 06/02: No evidence of acute pulmonary disease. CXR 06/05: Increased size of right basilar airspace opacity & small right pleural effusion. Haziness of left costophrenic angle likely atelectasis. Treatment on admission 06/02: IV fluid bolus 1,000 mls @ 999/hr, IV Zosyn, IV fluid rate 1,000 mls @ 130/hr, IV Phytonadione, IV Vancomycin. PO Lasix 40 mg daily on 06/07. 9/2 Cardiology consulted for anticoagulation recommendations: Lower extremity edema. EKG: Atrial fibrillation & CXR noted. Recommend continue po Lasix 40 mg daily & Aldactone 50 mg daily. In your professional opinion, can you please clarify the acuity and type of CHF if known? Heart Failure is ruled out Systolic Heart Failure: o Acute o Chronic o Acute on Chronic Diastolic Heart Failure: o Acute o Chronic o Acute on Chronic Systolic & Diastolic Heart Failure: o Acute o Chronic o Acute on Chronic Heart Failure Unable to Determine Other, please specify (Last Revision: January 2018) Unable to Determine MTDD
[2020-06-08 09:34] VITALS: RESP 18
[2020-06-08 11:41] LABS: Glucose,Whole Blood 142 mg/dL (75-99)
--- NOTE | 2020-06-08 11:43 | P.PN ---
Subjective Progress Note Date: 06/08/20 CHIEF COMPLAINT: Anticoagulation recommendations HISTORY OF PRESENT ILLNESS: Patient examined this morning at the bedside. He denies chest pain or shortness of breath. Creatinine 2.0 today. WBC 23.1. Vital signs are stable. Blood pressure 104/68. PHYSICAL EXAM: VITAL SIGNS: Reviewed. GENERAL: Well-developed in no acute distress. HEENT: Head is normocephalic. Pupils are equal, round. Sclerae anicteric. Mucous membranes of the mouth are moist. Neck supple. No JVD or thyromegaly LUNGS: Respirations even and unlabored. Lungs essentially clear to auscultation bilaterally. HEART: Regular rate and rhythm. S1 and S2 heard. EXTREMITIES: Normal range of motion. No clubbing or cyanosis. Peripheral pulses intact. Bilateral lower extremity edema NEUROLOGIC: Awake and alert. Oriented x 3. 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 Patient agreeable to withholding anticoagulation at this time Patient may follow up outpatient with Dr. Chino Nurse practitioner note has been reviewed by physician. Signing provider agrees with the documented findings, assessment, and plan of care. Objective - Vital Signs Vital signs: Vital Signs Temp 97.5 F L 06/08/20 08:15 Pulse 95 06/08/20 08:15 Resp 18 06/08/20 08:15 BP 104/68 06/08/20 08:15 Pulse Ox 97 06/08/20 08:15 Intake & Output 06/07/20 06/08/20 06/08/20 18:59 06:59 18:59 Intake Total 610 1800 110 Output Total 300 Balance 610 1500 110 Weight 112.5 kg Intake: Intake, IV Titration 1000 Amount Vancomycin 1,750 mg In 1000 Sodium Chloride 0.9% 500 ml 500 ml @ 167 mls/hr IVPB Q24H [facility] Rx#: [id number] Oral 610 800 110 Output: Urine 300 Other: Voiding Method Toilet # Voids 1 1 1 # Bowel Movements 1 1 - Labs CBC & Chem 7: 09/03/20 06:30 06/08/20 06:30 Labs: Abnormal Lab Results - Last 24 Hours (Table) 06/07/20 06/07/20 06/07/20 Range/Units 11:43 16:29 20:21 WBC (3.8-10.6) k/uL RBC (4.30-5.90) m/uL Hgb (13.0-17.5) gm/dL MCV (80.0-100.0) fL RDW (11.5-15.5) % Sodium (137-145) mmol/L Chloride (98-107) mmol/L Carbon Dioxide (22-30) mmol/L BUN (9-20) mg/dL Creatinine (0.66-1.25) mg/dL Glucose (74-99) mg/dL POC Glucose (mg/dL) 119 H 136 H 180 H (75-99) mg/dL 06/08/20 06/08/20 06/08/20 Range/Units 06:30 06:30 06:56 WBC 23.1 H (3.8-10.6) k/uL RBC 3.91 L (4.30-5.90) m/uL Hgb 12.2 L (13.0-17.5) gm/dL MCV 100.2 H (80.0-100.0) fL RDW 15.7 H (11.5-15.5) % Sodium 136 L (137-145) mmol/L Chloride 110 H (98-107) mmol/L Carbon Dioxide 17 L (22-30) mmol/L BUN 39 H (9-20) mg/dL Creatinine 2.00 H (0.66-1.25) mg/dL Glucose 112 H (74-99) mg/dL POC Glucose (mg/dL) 116 H (75-99) mg/dL 06/08/20 Range/Units 11:39 WBC (3.8-10.6) k/uL RBC (4.30-5.90) m/uL Hgb (13.0-17.5) gm/dL MCV (80.0-100.0) fL RDW (11.5-15.5) % Sodium (137-145) mmol/L Chloride (98-107) mmol/L Carbon Dioxide (22-30) mmol/L BUN (9-20) mg/dL Creatinine (0.66-1.25) mg/dL Glucose (74-99) mg/dL POC Glucose (mg/dL) 142 H (75-99) mg/dL Microbiology - Last 24 Hours (Table) 06/02/20 14:16 Blood Culture - Preliminary Blood No Growth after 120 hours
[2020-06-08 14:17] VITALS: BMI 35.6
--- NOTE | 2020-06-08 15:28 | PN ---
PROGRESS NOTE DATE OF DICTATION: 06/08/2020 Patient is seen on followup today, he is doing well. He denies any complaints, undergoing echocardiogram of the heart because of atrial fibrillation. He denies any abdominal pain. No nausea, no vomiting. He is status post liver biopsy for liver lesion and elevated alpha fetoprotein. Results are still pending. The patient was noted to have mild ascites and abdominal wall edema. He was started on Lasix 40 mg daily and Aldactone 50 mg daily 2 days ago. Today, his BUN and creatinine are slightly increased. PHYSICAL EXAMINATION: He appears comfortable, in no apparent distress. Vital signs are stable. Blood pressure is 98/63, pulse rate 77, temperature 97.4. HEENT: Examination unremarkable, sclerae nonicteric, oral cavity no lesions. NECK: No JVD or lymph node enlargement. CHEST: Clear to auscultation. HEART: Regular rate and rhythm. ABDOMEN: Slightly distended, no free fluid appreciated. Mild abdominal wall edema noted. EXTREMITIES: No pedal edema. NEURO: He is alert and oriented x3. No focal deficits. LABS: From today WBC 23.1, hemoglobin 12.2, platelets 239. BUN 39, creatinine 2, sodium 136, potassium 4.6, chloride 1 0, CO2 is 17, alkaline phosphatase is 874. AST and ALT are 134 and 88 respectively. IMPRESSION: 1. Elevated LFTs and multiple liver lesions, status post liver biopsy 3 days ago, results of biopsies still pending. 2. Mild ascites and abdominal wall edema secondary to hypoalbuminemia. The patient on Lasix 40 mg daily and Aldactone 50 mg daily. 3. Elevated BUN and creatinine, with gradually worsening parameters. 4. Possible chronic underlying liver disease. 5. History of diabetes mellitus and hypertension. RECOMMENDATIONS: 1. Hold Lasix because of elevated BUN and creatinine. 2. Continue Aldactone 50 mg daily. 3. Await biopsy results. 4. Continue with a low-salt diet. 5. Repeat labs in the morning and will follow with you closely. Thank you for this consultation. MMODL / IJN: [id number] /
--- NOTE | 2020-06-08 15:55 | P.PN ---
Subjective Progress Note Date: 06/07/20 Undiagnosed metastatic disease to the liver 75-year-old male presented to the hospital at the request of Dr. Muller. The ER this patient had an elevated INR of 10 elevated liver enzymes ALP of 91 AST 173 bilirubin of 1.2 alkaline phosphatase was 965, his lactic acid was 5.7. Lactic acid has normalized his INR has normalized CT of the abdomen confirms metastatic-type disease to the liver CEA was neg CA-19-9 also negative , alpha- fetoprotein slightly elevated again CT of the abdomen and chest and pelvis demonstrated a bilateral pleural effusion small of the chest there were metastases to the liver, and the pelvis appeared unremarkable the abdomen also pancreas appeared negative for mass. 06/05/2020 INR currently at 1.8. Telemetry reporting atrial fibrillation with heart rates 110s to 120s, Cardizem increased. Less Short of breath, maintaining O2 sats in the high 90s on room air. Chest x-ray reporting increased right basilar airspace opacity and small right pleural effusion, haziness of the left costophrenic angle, atelectasis. Mild tachycardia .LFTs trending down. WBC down to 17.8. Evaluated by oncology, recommendations noted including bone scan and liver biopsy. 06/06/20 bone scan completed yesterday reported no focal uptake suspicious for metastatic disease.completed liver biopsy, tolerated well. Pathology pending. Abdomen distended with questionable ascites as mentioned per CT. telemetry reporting controlled A. fib with heart rate in the 70s to 80s, 06/07/20 pathology pending. Renal function worsening. Cardiology recommending no anticoagulation secondary to liver metastasis for now with further evaluation at follow-up visit on 9:15. Left leg Doppler negative for DVT. Denies any chest pain, palpitations or shortness of breath. Denies any nausea or vomiting. Denies abdominal pain. Afebrile, WBC 17.9. Abdominal Ultrasound reported minimal fluid pocket. Objective - Vital Signs Vital signs: Vital Signs Temp 97.9 F 06/07/20 11:56 Pulse 74 06/07/20 11:56 Resp 18 06/07/20 11:56 BP 103/65 06/07/20 11:56 Pulse Ox 97 06/07/20 11:56 Intake & Output 06/06/20 06/07/20 06/07/20 18:59 06:59 18:59 Intake Total 200 1800 250 Balance 200 1800 250 Weight 112 kg Intake: IV 1000 Vancomycin 1,750 mg In 1000 Sodium Chloride 0.9% 500 ml 500 ml @ 167 mls/hr IVPB Q16H [facility] Rx#: [id number] Oral 200 800 250 Other: Voiding Method Toilet # Voids 1 1 # Bowel Movements 1 1 - Exam General: [Patient awake, alert and oriented times 3. NAD. HEENT: [PERRL. EOMI. conjunctiva normal, No pharyngeal erythema or exudate.] Neck: [No adenopathy.] Cardiac: [Regular S1, S2 , Irregular, No S3. No S4. No clicks, rubs. No murmur.] Lungs: [Mildly increased respiratory effort Clear to auscultation bilaterally.] Abdomen: [Distended, nontender, No mass. No organomegaly. Bowel sounds presnt and normoactive in all 4 quadrants.] Extremes: Bilateral lower extremity edema, no cyanosis no claudication normal pulses] Skin: [Weeping lower extremities, No rash.] Neurologic: [No lateralizing deficits. CN II - XII grossly intact.] - Labs CBC & Chem 7: 06/08/20 06:30 06/08/20 06:30 Labs: Abnormal Lab Results - Last 24 Hours (Table) 06/06/20 06/06/20 06/07/20 Range/Units 16:51 21:06 06:13 WBC (3.8-10.6) k/uL RBC (4.30-5.90) m/uL Hgb (13.0-17.5) gm/dL Hct (39.0-53.0) % MCHC (31.0-37.0) g/dL Neutrophils # (1.3-7.7) k/uL Sodium (137-145) mmol/L Chloride (98-107) mmol/L Carbon Dioxide (22-30) mmol/L BUN (9-20) mg/dL Creatinine (0.66-1.25) mg/dL Glucose (74-99) mg/dL POC Glucose (mg/dL) 174 H 124 H 116 H (75-99) mg/dL 06/07/20 06/07/20 06/07/20 Range/Units 06:53 06:53 11:43 WBC 17.9 H (3.8-10.6) k/uL RBC 3.67 L (4.30-5.90) m/uL Hgb 11.1 L (13.0-17.5) gm/dL Hct 36.2 L (39.0-53.0) % MCHC 30.6 L (31.0-37.0) g/dL Neutrophils # 15.2 H (1.3-7.7) k/uL Sodium 135 L (137-145) mmol/L Chloride 109 H (98-107) mmol/L Carbon Dioxide 21 L (22-30) mmol/L BUN 35 H (9-20) mg/dL Creatinine 1.77 H (0.66-1.25) mg/dL Glucose 113 H (74-99) mg/dL POC Glucose (mg/dL) 119 H (75-99) mg/dL Microbiology - Last 24 Hours (Table) 06/02/20 14:16 Blood Culture - Preliminary Blood No Growth after 96 hours Assessment and Plan Assessment: (1) Metastasis to liver of unknown origin, possible metastatic disease, status post liver biopsy Current Visit: Yes Status: Acute Code(s): C78.7 - SECONDARY MALIG NEOPLASM OF LIVER AND INTRAHEPATIC BILE DUCT; C80.1 - MALIGNANT (PRIMARY) NEOPLASM, UNSPECIFIED SNOMED Code(s): 495998372 (2) Liver cirrhosis, as per CT, (3) Coumadin toxicity Narrative/Plan: Normalized Current Visit: Yes Status: Acute Code(s): T45.511A - POISONING BY ANTICOAGULANTS, ACCIDENTAL, INIT SNOMED Code(s): 85742079 (4) Gallbladder contraction Current Visit: Yes Status: Acute Code(s): K82.0 - OBSTRUCTION OF GALLBLADDER SNOMED Code(s): 035147341 (5) Lactic acidosis, nonspecific Narrative/Plan: Also normalized Current Visit: Yes Status: Acute Code(s): E87.2 - ACIDOSIS SNOMED Code(s): 62001535 (6) Sepsis Narrative/Plan: Patient has been fluid resuscitated currently on IV antibiotics appears to be hemodynamically stable Current Visit: Yes Status: Acute Code(s): A41.9 - SEPSIS, UNSPECIFIED ORGANISM SNOMED Code(s): 18372009 (7) Rectal bleeding Narrative/Plan: Persistent but much less than when he was admitted when the INR was elevated Current Visit: No Status: Acute Code(s): K62.5 - HEMORRHAGE OF ANUS AND RECTUM SNOMED Code(s): 86732395 (8) Venous insufficiency of leg Current Visit: No Status: Acute Code(s): I87.2 - VENOUS INSUFFICIENCY (CHRONIC) (PERIPHERAL) SNOMED Code(s): 088960955 (9) diabetes mellitus (10) chronic A. fib, uncontrolled (11) remote history of head trauma, contusion (12) hypertension (13) pulmonary hypertension (14) history of alcoholism and nicotine dependence, quit both in 2005. )15) leukocytosis, possibly reactive (16) acute renal failure, multifactorial, possibly medication induced Plan: Continue on current medication regime ,monitoring and symptomatic treatment. Renal function worsening, DC vancomycin.Status post liver biopsy, pathology pending. PT/OT. Close monitoring of renal function, repeat labs ordered for a.m. The impression and plan of care has been dictated as directed. : I performed a history and examination of this patient, discussed the same with the dictator. I agree with the dictator's note ,documented as a scribe. Any additional findings or plans will be noted.
--- NOTE | 2020-06-08 16:00 | ECHOF ---
Referral Reason:lv function MEASUREMENTS -------- HEIGHT: 180.3 cm WEIGHT: 112.5 kg BP: 104/68 RVIDd: 4.6 cm (< 3.3) IVSd: 1.2 cm (0.6 - 1.1) LVIDd: 4.0 cm (3.9 - 5.3) LVPWd: 1.0 cm (0.6 - 1.1) IVSs: 1.8 cm LVIDs: 2.8 cm LVPWs: 1.6 cm LAESV Index (A-L): 38.66 ml/m Ao Diam: 3.0 cm (2.0 - 3.7) AV Cusp: 1.9 cm (1.5 - 2.6) LA Diam: 3.8 cm (2.7 - 3.8) MV EXCURSION: 17.701 mm (> 18.000) MV EF SLOPE: 91 mm/s (70 - 150) EPSS: 0.8 cm RAP: 5.00 mmHg RVSP: 36.15 mmHg FINDINGS -------- Atrial fibrillation. This was a technically adequate study. The left ventricular size is normal. There is borderline concentric left ventricular hypertrophy. Overall left ventricular systolic function is normal with, an EF between 55 - 60 %. Left ventricul ar fillimg pressure cannot be estimated due to Atrial fibrillation. The right ventricle is moderately enlarged. LA is moderately dilated 34-39 ml/m2 The right atrium is mildly enlarged. The aortic valve is trileaflet and appears structurally normal. The mitral valve is normal. Mild mitral regurgitation is present. The tricuspid valve appears structurally normal. Moderate tricuspid regurgitation present. There is mild pulmonary hypertension. The right ventricular systolic pressure, as measured by Doppler, is 36.15mmHg. The pulmonic valve was not well visualized. The aortic root size is normal. IVC Not well visulized. There is no pericardial effusion. CONCLUSIONS -------- 1. Atrial fibrillation. 2. The left ventricular size is normal. 3. There is borderline concentric left ventricular hypertrophy. 4. Overall left ventricular systolic function is normal with, an EF between 55 - 60 %. 5. LA is moderately dilated 34-39 ml/m2 6. The right atrium is mildly enlarged. 7. Mild mitral regurgitation is present. 8. Moderate tricuspid regurgitation present. 9. There is mild pulmonary hypertension. 10. The right ventricular systolic pressure, as measured by Doppler, is 36.15mmHg. 11. There is no pericardial effusion. SHERIFF SERGEANT: Kavita Massey RDCS
--- NOTE | 2020-06-08 16:01 | P.PN ---
Subjective Progress Note Date: 06/08/20 Undiagnosed metastatic disease to the liver 75-year-old male presented to the hospital at the request of Dr. Muller. The ER this patient had an elevated INR of 10 elevated liver enzymes ALP of 91 AST 173 bilirubin of 1.2 alkaline phosphatase was 965, his lactic acid was 5.7. Lactic acid has normalized his INR has normalized CT of the abdomen confirms metastatic-type disease to the liver CEA was neg CA-19-9 also negative , alpha- fetoprotein slightly elevated again CT of the abdomen and chest and pelvis demonstrated a bilateral pleural effusion small of the chest there were metastases to the liver, and the pelvis appeared unremarkable the abdomen also pancreas appeared negative for mass. 06/05/2020 INR currently at 1.8. Telemetry reporting atrial fibrillation with heart rates 110s to 120s, Cardizem increased. Less Short of breath, maintaining O2 sats in the high 90s on room air. Chest x-ray reporting increased right basilar airspace opacity and small right pleural effusion, haziness of the left costophrenic angle, atelectasis. Mild tachycardia .LFTs trending down. WBC down to 17.8. Evaluated by oncology, recommendations noted including bone scan and liver biopsy. 06/06/20 bone scan completed yesterday reported no focal uptake suspicious for metastatic disease.completed liver biopsy, tolerated well. Pathology pending. Abdomen distended with questionable ascites as mentioned per CT. telemetry reporting controlled A. fib with heart rate in the 70s to 80s, 06/07/20 pathology pending. Renal function worsening. Cardiology recommending no anticoagulation secondary to liver metastasis for now with further evaluation at follow-up visit on 9:15. Left leg Doppler negative for DVT. Denies any chest pain, palpitations or shortness of breath. Denies any nausea or vomiting. Denies abdominal pain. Afebrile, WBC 17.9. Abdominal Ultrasound reported minimal fluid pocket. 06/08/2020 vancomycin discontinued, creatinine up to 2. Leukocytosis worsening, up to 23.1. Holding Lasix. Denies chest pain, palpitations or shortness of breath. Pathology pending. Objective - Vital Signs Vital signs: Vital Signs Temp 97.4 F L 06/08/20 12:00 Pulse 77 06/08/20 12:00 Resp 18 06/08/20 12:00 BP 98/63 06/08/20 12:00 Pulse Ox 97 06/08/20 12:00 Intake & Output 06/07/20 06/08/20 06/08/20 18:59 06:59 18:59 Intake Total 610 1800 830 Output Total 300 Balance 610 1500 830 Weight 112.5 kg 112.5 kg Intake: Intake, IV Titration 1000 Amount Vancomycin 1,750 mg In 1000 Sodium Chloride 0.9% 500 ml 500 ml @ 167 mls/hr IVPB Q24H [facility] Rx#: [id number] Oral 610 800 830 Output: Urine 300 Other: Voiding Method Toilet # Voids 1 1 4 # Bowel Movements 1 1 - Exam General: [Patient sitting up in bed, awake, alert and oriented times 3. NAD. HEENT: [PERRL. EOMI. conjunctiva normal, No pharyngeal erythema or exudate.] Oral Mucosa moist. Neck: [No adenopathy.] Cardiac: [Regular S1, S2 , Irregular, No S3. No S4. No clicks, rubs. No murmur.] Lungs: [Mildly increased respiratory effort Clear to auscultation bilaterally.] Abdomen: [Distended, nontender, No mass. No organomegaly. Bowel sounds presnt and normoactive in all 4 quadrants.] Extremes: Bilateral lower extremity edema, no cyanosis no claudication normal pulses] Skin: [Weeping lower extremities, No rash.] Neurologic: [No lateralizing deficits. CN II - XII grossly intact.] - Labs CBC & Chem 7: 06/08/20 06:30 06/08/20 06:30 Labs: Abnormal Lab Results - Last 24 Hours (Table) 06/07/20 06/07/20 06/08/20 Range/Units 16:29 20:21 06:30 WBC (3.8-10.6) k/uL RBC (4.30-5.90) m/uL Hgb (13.0-17.5) gm/dL MCV (80.0-100.0) fL RDW (11.5-15.5) % Sodium 136 L (137-145) mmol/L Chloride 110 H (98-107) mmol/L Carbon Dioxide 17 L (22-30) mmol/L BUN 39 H (9-20) mg/dL Creatinine 2.00 H (0.66-1.25) mg/dL Glucose 112 H (74-99) mg/dL POC Glucose (mg/dL) 136 H 180 H (75-99) mg/dL 06/08/20 06/08/20 06/08/20 Range/Units 06:30 06:56 11:39 WBC 23.1 H (3.8-10.6) k/uL RBC 3.91 L (4.30-5.90) m/uL Hgb 12.2 L (13.0-17.5) gm/dL MCV 100.2 H (80.0-100.0) fL RDW 15.7 H (11.5-15.5) % Sodium (137-145) mmol/L Chloride (98-107) mmol/L Carbon Dioxide (22-30) mmol/L BUN (9-20) mg/dL Creatinine (0.66-1.25) mg/dL Glucose (74-99) mg/dL POC Glucose (mg/dL) 116 H 142 H (75-99) mg/dL Microbiology - Last 24 Hours (Table) 06/02/20 14:16 Blood Culture - Preliminary Blood No Growth after 120 hours Assessment and Plan Assessment: (1) Metastasis to liver of unknown origin, possible metastatic disease, status post liver biopsy, pathology pending Current Visit: Yes Status: Acute Code(s): C78.7 - SECONDARY MALIG NEOPLASM OF LIVER AND INTRAHEPATIC BILE DUCT; C80.1 - MALIGNANT (PRIMARY) NEOPLASM, UNSPE CIFIED SNOMED Code(s): 704564697 (2) Liver cirrhosis, as per CT, (3) Coumadin toxicity Narrative/Plan: Normalized Current Visit: Yes Status: Acute Code(s): T45.511A - POISONING BY ANTICOAGULANTS, ACCIDENTAL, INIT SNOMED Code(s): 18003895 (4) Gallbladder contraction Current Visit: Yes Status: Acute Code(s): K82.0 - OBSTRUCTION OF GALLBLADDER SNOMED Code(s): 285663635 (5) Lactic acidosis, nonspecific Narrative/Plan: Also normalized Current Visit: Yes Status: Acute Code(s): E87.2 - ACIDOSIS SNOMED Code(s): 33149835 (6) Sepsis Narrative/Plan: Patient has been fluid resuscitated currently on IV antibiotics appears to be hemodynamically stable Current Visit: Yes Status: Acute Code(s): A41.9 - SEPSIS, UNSPECIFIED ORGANISM SNOMED Code(s): 38788303 (7) Rectal bleeding Narrative/Plan: Persistent but much less than when he was admitted when the INR was elevated Current Visit: No Status: Acute Code(s): K62.5 - HEMORRHAGE OF ANUS AND RECTUM SNOMED Code(s): 72029616 (8) Venous insufficiency of leg Current Visit: No Status: Acute Code(s): I87.2 - VENOUS INSUFFICIENCY (CHRONIC) (PERIPHERAL) SNOMED Code(s): 921301789 (9) diabetes mellitus (10) chronic A. fib, uncontrolled (11) remote history of head trauma, contusion (12) hypertension (13) pulmonary hypertension (14) history of alcoholism and nicotine dependence, quit both in 2005. )15) leukocytosis, possibly reactive (16) acute renal failure, multifactorial, possibly medication induced-vancomycin discontinued. Plan: Continue on current medication regime ,monitoring and symptomatic treatment. Worsening renal function, Lasix on hold .worsening leukocytosis, infectious disease consulted .Close monitoring of renal function, WBC repeat labs ordered for a.m. pathology pending. The impression and plan of care has been dictated as directed. : I performed a history and examination of this patient, discussed the same with the dictator. I agree with the dictator's note ,documented as a scribe. Any additional findings or plans will be noted.
[2020-06-08 16:58] LABS: Glucose,Whole Blood 123 mg/dL (75-99)
[2020-06-08 21:45] LABS: Glucose,Whole Blood 136 mg/dL (75-99)
[2020-06-09] MEDS: ACETAMINOPHEN TAB 325 MG TAB PO PRN ×3 (00:35→14:42)
[2020-06-09 06:46] LABS: Glucose,Whole Blood 116 mg/dL (75-99)
[2020-06-09] MEDS: DILTIAZEM CD 180 MG CAP.ER.24H PO SCH (07:49)
[2020-06-09] MEDS: METOPROLOL TARTRATE 50 MG TAB PO SCH (07:49)
[2020-06-09] MEDS: INSULIN ASPART (NovoLOG) 100 UNIT/ML VIAL SQ SCH ×2 (07:49→13:20)
[2020-06-09] MEDS: SPIRONOLACTONE 25 MG TAB PO SCH (07:49)
--- NOTE | 2020-06-09 09:38 | P.CONS ---
History of Present Illness - Reason for Consult Consult date: 06/08/20 Leukocytosis Requesting physician: Chrissy Solis - Chief Complaint Weakness and abnormal lab x days - History of Present Illness Patient is 75-year-old male presenting to the ER at [facility] on 05/25/2020 for evaluation of abnormal labs and generalized weakness and fatigue, apparently the patient was noticed to have INR of greater than 9 this patient did have a history of atrial fibrillation and is on Coumadin patient was complaining of shortness of breath and did have significant swelling in his lower extremity on arrival to the patient has been afebrile and no fever has been recorded during this admission, patient chest x-ray was negative for any acute infiltrate, patient did have a CT of the chest abdominal pelvis CT shows extensive heterogeneous liver compatible with metastatic disease and also have evidence of ascites, ultrasound of the liver confirmed the metastatic disease and no evidence of acute cholecystitis patient also have an echocardiogram did not show any evidence of vegetation, patient did have elevated white count of 19.4 on admission however his white count was up to 23.1 today that prompted his infectious disease patient was empirically treated with vancomycin has been discontinued because of his kidney function, blood culture done on admission has been negative Review of Systems Positive point has been mentioned in the HPI rest of the systems are negative Past Medical History Past Medical History: Atrial Fibrillation, Diabetes Mellitus, Hyperlipidemia, Hypertension, Renal Disease, Vascular Disorder Additional Past Medical History / Comment(s): Per past medical record pt has hx CHF/pulmonary htn but pt/spouse do not recall this, IDDM type II, chronic renal disease, lower GI bleed pt thinks attributed to hemorrhoids, PVD, past L lower leg wound-healed, occasional bilateral lower leg edema, back pain, 2011 head trauma/contusion with L sided symptoms/seizure-no residual, past heavy drinking but quit in 2005. History of Any Multi-Drug Resistant Organisms: None Reported Past Surgical History: Hernia Repair Additional Past Surgical History / Comment(s): R inguinal hernia repair, colonoscopy, bilateral cataract removals/lens implant, pt unsure if had tonsillectomy. Past Anesthesia/Blood Transfusion Reactions: No Reported Reaction Smoking Status: Former smoker - Past Family History Mother Family Medical History: Hypertension Father History Unknown: Yes Family Medical History: No Reported History Medications and Allergies Home Medications Medication Instructions Recorded Confirmed Type INSULIN ASPART (NovoLOG) [NovoLOG See Protocol SQ AC-TID 11/01/14 06/02/20 History (formulary)] Insulin Detemir (Levemir) [Levemir] 36 unit SQ DAILY 11/01/14 06/02/20 History Metoprolol Tartrate [Lopressor] 50 mg PO BID 11/01/14 06/02/20 History metFORMIN HCL [Glucophage] 500 mg PO BID 11/01/14 06/02/20 History Calcitriol [Rocaltrol] 0.25 mcg PO WE@2100 06/02/20 06/02/20 History Diltiazem Cd [Cardizem CD] 360 mg PO DAILY #60 cap.er.24h 06/07/20 Rx Furosemide [Lasix] 40 mg PO DAILY #30 tab 06/07/20 Rx Spironolactone [Aldactone] 50 mg PO DAILY #60 tab 06/07/20 Rx Allergies Allergy/AdvReac Type Severity Reaction Status Date / Time No Known Allergies Allergy Verified 06/02/20 12:37 Physical Exam Vitals: Vital Signs Temp Pulse Resp BP Pulse Ox 06/08/20 12:00 97.4 F L 77 18 98/63 97 06/08/20 08:15 97.5 F L 95 18 104/68 97 06/08/20 04:00 93 19 107/62 97 06/08/20 01:00 90 19 116/60 96 06/08/20 00:00 90 19 06/07/20 20:00 98.4 F 79 19 113/58 97 Intake and Output 06/08/20 06/08/20 06/08/20 06:59 14:59 22:59 Intake Total 1800 830 Output Total 300 Balance 1500 830 Intake: Intake, IV Titration 1000 Amount Vancomycin 1,750 mg In 1000 Sodium Chloride 0.9% 500 ml 500 ml @ 167 mls/hr IVPB Q24H [facility] Rx#: [id number] Oral 800 830 Output: Urine 300 Other: Voiding Method Toilet # Voids 1 4 # Bowel Movements 1 Weight 112.5 kg 112.5 kg GENERAL DESCRIPTION: An elderly male up in chair, no distress. No tachypnea or accessory muscle of respiration use. HEENT: Shows Pallor , no scleral icterus. Oral mucous membrane is dry. No pharyngeal erythema or thrush NECK: Trachea central, no thyromegaly. LUNGS: Unlabored breathing. Decreased breath sound at the base. No wheeze or crackle. HEART: S1, S2, regular rate and rhythm. No loud murmur ABDOMEN: Soft, no tenderness , guarding or rigidity, no organomegaly EXTREMITIES: 2+ edema feet bilaterally with some superficial ulcers to left anterior leg but no cellulitis. SKIN: No rash, no masses palpable. NEUROLOGICAL: The patient is awake, alert, oriented x3, mood and affect normal. Results CBC & Chem 7: 06/08/20 06:30 06/09/20 07:01 Labs: Abnormal Lab Results - Last 24 Hours (Table) 06/07/20 06/08/20 06/08/20 Range/Units 20:21 06:30 06:30 WBC 23.1 H (3.8-10.6) k/uL RBC 3.91 L (4.30-5.90) m/uL Hgb 12.2 L (13.0-17.5) gm/dL MCV 100.2 H (80.0-100.0) fL RDW 15.7 H (11.5-15.5) % Sodium 136 L (137-145) mmol/L Chloride 110 H (98-107) mmol/L Carbon Dioxide 17 L (22-30) mmol/L BUN 39 H (9-20) mg/dL Creatinine 2.00 H (0.66-1.25) mg/dL Glucose 112 H (74-99) mg/dL POC Glucose (mg/dL) 180 H (75-99) mg/dL 06/08/20 06/08/20 06/08/20 Range/Units 06:56 11:39 16:57 WBC (3.8-10.6) k/uL RBC (4.30-5.90) m/uL Hgb (13.0-17.5) gm/dL MCV (80.0-100.0) fL RDW (11.5-15.5) % Sodium (137-145) mmol/L Chloride (98-107) mmol/L Carbon Dioxide (22-30) mmol/L BUN (9-20) mg/dL Creatinine (0.66-1.25) mg/dL Glucose (74-99) mg/dL POC Glucose (mg/dL) 116 H 142 H 123 H (75-99) mg/dL Microbiology - Last 24 Hours (Table) 06/02/20 14:16 Blood Culture - Final Blood No Growth after 144 hours Assessment and Plan Assessment: 1- patient is 75-year-old male presenting to the hospital with generalized weakness no energy this patient to have elevated INR in outpatient setting subsequently workup which shows evidence of metastatic disease to the liver status post biopsy with the histopathology is currently pending patient did not have any fever during this admission and is nontoxic blood culture done on admission are negative as well, did have a CT of the chest abdominal pelvis with no definite focus of infection possibly elevated white count is related to his metastatic disease. 2-left anterior leg wound likely from ruptured blister with no evidence of any cellulitis (1) Leukocytosis Current Visit: Yes Status: Acute Code(s): D72.829 - ELEVATED WHITE BLOOD CELL COUNT, UNSPECIFIED SNOMED Code(s): 050682408 Plan: 1- we will repeat blood cultures and starting 2-we will check a CRP and Procalcitonin level 3- Aquacel Silver dressing to the left anterior leg wound and Marco A wrap to the leg to keep the swelling down 4- hold on any systemic antibiotic therapy at this point We will follow on clinical condition and cultures to further adjust medication if needed Thank you for this consultation will follow this patient with you
[2020-06-09 10:15] LABS: Basophils % (A) 0 %; Eosinophils # (A) 0.1 k/uL (0-0.7); Eosinophils % (A) 1 %; HCT 38.8 % (39.0-53.0); HGB 11.7 gm/dL (13.0-17.5); Hypochromasia Marked; Lymphocytes # (A) 2.2 k/uL (1.0-4.8); Lymphocytes % (A) 13 %; MCHC 30.1 g/dL (31.0-37.0); MCV 99.9 fL (80.0-100.0); Macrocytosis Slight; Mean Platelet Volume 11.1; Monocytes # (A) 0.6 k/uL (0-1.0); Monocytes % (A) 4 %; Neutrophils # (A) 14.3 k/uL (1.3-7.7); Neutrophils % (A) 82 %; Platelet Count 210 k/uL (150-450); RBC 3.88 m/uL (4.30-5.90); RDW 15.5 % (11.5-15.5); WBC 17.3 k/uL (3.8-10.6)
[2020-06-09 10:37] LABS: Polychromasia Present
[2020-06-09 12:31] LABS: Albumin 2.2 g/dL (3.5-5.0); Bilirubin, Delta 0.5 mg/dL (0.0-0.2); Bilirubin,Unconjugated 0.3 mg/dL (0.0-1.1); Total Bilirubin 0.8 mg/dL (0.2-1.3); Total Protein 5.3 g/dL (6.3-8.2)
[2020-06-09 12:54] LABS: Glucose,Whole Blood 133 mg/dL (75-99)
[2020-06-09 15:13] VITALS: BP 112/71; PULSE 78; TEMP 98.1
--- NOTE | 2020-06-09 16:10 | P.DS ---
Providers Date of admission: 06/02/20 13:45 Expected date of discharge: 06/09/20 Attending physician: Javier Meneses Consults: 06/02/20 14:49 Consult Physician Routine Consulting Provider: Franca Danielle Consult Reason/Comments: Sepsis, supratherapeutic INR Do you want consulting provider notified?: Already Contacted 06/04/20 08:40 Consult Physician Routine Consulting Provider: Fab Sanz Consult Reason/Comments: possible liver cancer Do you want consulting provider notified?: Yes 06/06/20 14:22 Consult Physician Routine Consulting Provider: Marya Ramirez Consult Reason/Comments: ascites Do you want consulting provider notified?: Yes 06/08/20 08:54 Consult Physician Routine Consulting Provider: Alexey Damon Consult Reason/Comments: leukocytosis,liver mets Do you want consulting provider notified?: Yes 06/09/20 13:25 Consult Physician Routine Consulting Provider: Bella Cuevas Consult Reason/Comments: Increasing Renal function Do you want consulting provider notified?: Yes Primary care physician: Juan Pablo Muller Hospital Course: 75-year-old male presented to the hospital at the request of Dr. Muller. The ER this patient had an elevated INR of 10 elevated liver enzymes ALP of 91 AST 173 bilirubin of 1.2 alkaline phosphatase was 965, his lactic acid was 5.7. Lactic acid has normalized his INR has normalized CT of the abdomen confirms metastatic-type disease to the liver CEA was neg CA-19-9 also negative , alpha- fetoprotein slightly elevated again CT of the abdomen and chest and pelvis demonstrated a bilateral pleural effusion small of the chest there were metastases to the liver, and the pelvis appeared unremarkable the abdomen also pancreas appeared negative for mass. 06/05/2020 INR currently at 1.8. Telemetry reporting atrial fibrillation with heart rates 110s to 120s, Cardizem increased. Less Short of breath, maintaining O2 sats in the high 90s on room air. Chest x-ray reporting increased right basilar airspace opacity and small right pleural effusion, haziness of the left costophrenic angle, atelectasis. Mild tachycardia .LFTs trending down. WBC down to 17.8. Evaluated by oncology, recommendations noted including bone scan and liver biopsy. 06/06/20 bone scan completed yesterday reported no focal uptake suspicious for metastatic disease.completed liver biopsy, tolerated well. Pathology pending. Abdomen distended with questionable ascites as mentioned per CT. telemetry reporting controlled A. fib with heart rate in the 70s to 80s, 06/07/20 pathology pending. Renal function worsening. Cardiology recommending no anticoagulation secondary to liver metastasis for now with further evaluation at follow-up visit on 9:15. Left leg Doppler negative for DVT. Denies any chest pain, palpitations or shortness of breath. Denies any nausea or vomiting. Denies abdominal pain. Afebrile, WBC 17.9. Abdominal Ultrasound reported minimal fluid pocket. 06/08/2020 vancomycin discontinued, creatinine up to 2. Leukocytosis worsening, up to 23.1. Holding Lasix. Denies chest pain, palpitations or shortness of breath. Pathology pending. 06/09/2020: WBC count better. antibiotcis d/c'd ID has seen patient. GFR slightly worse but diuretics reduced. pateitn stable and requesting D/C Patient Condition at Discharge: Serious Plan - Discharge Summary Discharge Rx Participant: No New Discharge Prescriptions: New Diltiazem Cd [Cardizem CD] 360 mg PO DAILY #60 cap.er.24h Spironolactone [Aldactone] 25 mg PO DAILY #30 tab Furosemide [Lasix] 20 mg PO DAILY PRN #30 tablet PRN Reason: Edema Continue Metoprolol Tartrate [Lopressor] 50 mg PO BID Insulin Detemir (Levemir) [Levemir] 36 unit SQ DAILY metFORMIN HCL [Glucophage] 500 mg PO BID INSULIN ASPART (NovoLOG) [NovoLOG (formulary)] See Protocol SQ AC-TID Calcitriol [Rocaltrol] 0.25 mcg PO WE@2100 Discontinued Simvastatin [Zocor] 20 mg PO HS Diltiazem HCl [Diltiazem HCl 24Hr ER] 180 mg PO DAILY Discharge Medication List INSULIN ASPART (NovoLOG) [NovoLOG (formulary)] See Protocol SQ AC-TID 11/01/14 [History] Insulin Detemir (Levemir) [Levemir] 36 unit SQ DAILY 11/01/14 [History] Metoprolol Tartrate [Lopressor] 50 mg PO BID 11/01/14 [History] metFORMIN HCL [Glucophage] 500 mg PO BID 11/01/14 [History] Calcitriol [Rocaltrol] 0.25 mcg PO WE@2100 06/02/20 [History] Diltiazem Cd [Cardizem CD] 360 mg PO DAILY #60 cap.er.24h 06/07/20 [Rx] Furosemide [Lasix] 20 mg PO DAILY PRN #30 tablet 06/09/20 [Rx] Spironolactone [Aldactone] 25 mg PO DAILY #30 tab 06/09/20 [Rx] Follow up Appointment(s)/Referral(s): Fab Sanz MD [STAFF PHYSICIAN] - 1 Week Mo Chino DO [STAFF PHYSICIAN] - 06/20/20 4:15 pm (already scheduled) [facility], [NON-STAFF] - 1-2 Days (for left leg wound care) Juan Pablo Muller MD [Primary Care Provider] - 1 Week Activity/Diet/Wound Care/Special Instructions: No anticoagulation recommended at this time as per cardiology secondary to liver disease. Pending final DC recommendations and clearance from oncology, GI, pulmonary. Antibiotics as per pulmonary Discharge Disposition: HOME WITH HOME HEALTH SERVICES
--- NOTE | 2020-06-09 16:16 | PN ---
PROGRESS NOTE DATE OF DICTATION: 06/09/2020 Patient is a 75-year-old white male admitted to the hospital with fatigue, weakness, and multiple liver lesions, status post ultrasound-guided liver biopsy on June 06. Results of the pathology is still pending. In the meantime, he developed mild ascites and abdominal wall edema. He was started on Lasix and Aldactone. However, his kidney functions were worsening and hence the Lasix was discontinued yesterday. Overall he denies any symptoms. He is feeling well. He continues to have persistent leukocytosis. Dr. Damon has been consulted. PHYSICAL EXAMINATION: Appears comfortable. Vital signs are stable. Blood pressure 105/63, pulse rate 97, temperature 98.4. HEENT: Examination unremarkable. Conjunctivae are pink. Sclerae nonicteric. Oral cavity no lesions. NECK: No JVD or lymph node enlargement. CHEST: Clear to auscultation. HEART: Regular rate and rhythm. ABDOMEN: Soft, bowel sounds are positive. No organomegaly. EXTREMITIES: No pedal edema. There was some hyperkeratosis of the skin noted. LABS: From today, WBC 17.3, hemoglobin 11.7, platelets normal. Basic metabolic panel is within normal limits. BUN is 44, creatinine 2.15. AST and ALT are 118 and 89 respectively, alkaline phosphatase 1088. CRP is 227. IMPRESSION: 1. Multiple lesions in the liver, suspicious for metastasis. Status post ultrasound guided liver biopsy 4 days ago. Pathology is still pending. 2. Mild ascites. 3. Elevated BUN and creatinine. Lasix on hold since yesterday. 4. Mild ascites. 5. Elevated alpha-fetoprotein. 6. Persistent leukocytosis. RECOMMENDATIONS: 1. Await liver biopsy results. 2. Continue to hold Lasix. 3. Consider Nephrology consultation because of elevated BUN and creatinine. 4. Continue Aldactone 50 mg daily. 5. Low-salt diet. 6. Will follow with you closely. Thank you for this consultation. MMODL / IJN: [id number] /
[2020-06-09 17:11] LABS: Glucose,Whole Blood 120 mg/dL (75-99)
--- NOTE | 2020-06-09 18:07 | PN ---
PROGRESS NOTE DATE OF SERVICE: 06/09/2020 REASON FOR FOLLOWUP: Leukocytosis, likely reactive, with a question of cholangitis. INTERVAL HISTORY: The patient is currently afebrile, has been breathing comfortably. Denies having any chest pain or shortness of breath or cough. No nausea, vomiting or diarrhea. PHYSICAL EXAMINATION: His blood pressure is 124/71 with a pulse of 78, temperature 98.1. General description description is elderly male up in the chair in no distress. RESPIRATORY SYSTEM: Unlabored breathing. Clear to auscultation anteriorly. HEART: S1, S2. Regular rate and rhythm. ABDOMEN: Soft. No tenderness. Extremities are currently wrapped up with no drainage on the dressing. LABS: White count 17. CRP is elevated as well. DIAGNOSTIC IMPRESSION AND PLAN: Patient with elevated white count with concern likely related to his multiple medications in the liver, status post biopsy with culture pending. A component of underlying cholangitis is not entirely excluded with elevated CRP. We will add Rocephin and see clinical response to it. Family at the bedside. Their questions were answered. MMODL / IJN: [id number] /
[2020-06-09] MEDS ORDERED: VANCOMYCIN TROUGH DUE 1 EACH MISC MISCELLANE ONE (19:00)
--- NOTE | 2020-06-09 21:50 | P.PN ---
Subjective Progress Note Date: 06/09/20 Principal diagnosis: Concern for malignancy, abnormal findings in liver Biopsy liver was taken on 06/06/20. Awaiting results. Renal function has increased, creatinine was 0.98 3 days prior today 2. Vancomycin and lasix was DC per primary team. Consult in for nephrology to evaluate. Objective - Vital Signs Vital signs: Vital Signs Temp 98.4 F 06/09/20 07:45 Pulse 97 06/09/20 07:45 Resp 18 06/09/20 07:45 BP 105/63 06/09/20 07:45 Pulse Ox 98 06/09/20 04:01 Intake & Output 06/08/20 06/09/20 06/09/20 18:59 06:59 18:59 Intake Total 950 Output Total 900 1000 Balance 50 -1000 Weight 112.5 kg 112.1 kg Intake: Oral 950 Output: Urine 900 1000 Other: Voiding Method Toilet # Voids 4 2 # Bowel Movements 1 - Exam - Constitutional Constitutional Comment(s): Thin upper body and extremities, large abd General appearance: Present: cooperative, no acute distress - EENT Eyes: Present: anicteric sclerae, EOMI ENT: Present: hearing grossly normal - Respiratory Respiratory: bilateral: CTA - Cardiovascular Details: lower extremities are cool to tough, pt can feel touch to the plantar surface, tips of toes do vianney when pressed Heart sounds: normal: S1, S2 - Peripheral edema leg Peripheral Edema: bilateral: 2+ - Gastrointestinal Gastrointestinal Comment(s): bandaid over RUQ biopsy site is clean, no pain, bruising or unusual swelling General gastrointestinal: Present: distended, soft - Neurologic Neurologic: Present: CNII-XII intact - Musculoskeletal Musculoskeletal: Present: generalized weakness, strength equal bilaterally - Psychiatric Psychiatric: Present: A&O x's 3, appropriate affect, intact judgment & insight - Labs CBC & Chem 7: 06/09/20 07:01 06/09/20 07:01 Labs: Abnormal Lab Results - Last 24 Hours (Table) 06/08/20 06/08/20 06/09/20 Range/Units 16:57 21:42 06:32 WBC (3.8-10.6) k/uL RBC (4.30-5.90) m/uL Hgb (13.0-17.5) gm/dL Hct (39.0-53.0) % MCHC (31.0-37.0) g/dL Neutrophils # (1.3-7.7) k/uL Sodium (137-145) mmol/L Chloride (98-107) mmol/L Carbon Dioxide (22-30) mmol/L BUN (9-20) mg/dL Creatinine (0.66-1.25) mg/dL Glucose (74-99) mg/dL POC Glucose (mg/dL) 123 H 136 H 116 H (75-99) mg/dL C-Reactive Protein (<10.0) mg/L 06/09/20 06/09/20 06/09/20 Range/Units 07:01 07:01 07:01 WBC 17.3 H (3.8-10.6) k/uL RBC 3.88 L (4.30-5.90) m/uL Hgb 11.7 L (13.0-17.5) gm/dL Hct 38.8 L (39.0-53.0) % MCHC 30.1 L (31.0-37.0) g/dL Neutrophils # 14.3 H (1.3-7.7) k/uL Sodium 136 L (137-145) mmol/L Chloride 108 H (98-107) mmol/L Carbon Dioxide 20 L (22-30) mmol/L BUN 44 H (9-20) mg/dL Creatinine 2.15 H (0.66-1.25) mg/dL Glucose 116 H (74-99) mg/dL POC Glucose (mg/dL) (75-99) mg/dL C-Reactive Protein 227.3 H (<10.0) mg/L Microbiology - Last 24 Hours (Table) 06/02/20 14:16 Blood Culture - Final Blood No Growth after 144 hours Assessment and Plan Plan: - Imaging and Cardiology NM BS report reviewed Assessment and Plan: Liver lesion - Reviewed NM bone scan results, no evidence of metastatic disease. - Identifiable lesions within the liver. Pending biopsy results. AFP 519, CEA 1, CA-19-9 32.5. Supratherapeutic INR - resolved INR regulation is going to be difficult with liver disease. May have to consider one of the NOAC. Cardiology input regarding A. fib and control suggested. Hx: Atrial Fibrillation on Warfarin: - On hold for Coagulopathy Increased LFTs: - Likely related to abnormalities in liver - Await path to result - Repeat liver function and Coags Leukocytosis: - ID is following - Bañuelos cultures neg to date - Likely reactive Acute Renal Insufficiency: - Likely medication related - Nephrology consult placed - Francis and Janell on hold per Primary teams Will have patient follow-up in office pending results of path. Physician Attest: I have completed the full history and physical and agree with dictation, dictated as a scribe.
[2020-06-10] MEDS ORDERED: SPIRONOLACTONE 25 MG TAB PO SCH (09:00)
--- NOTE | 2020-06-13 22:43 | CDI ---
Documentation Clarification Form Date: 06/14/2020 From: Dexter Funes Phone: If you have a question about this query, please contact Petra Fong Cellar Packer at [phone] between 8am and 5pm. Admit Date: 06/02/2020 Discharge Date: 06/09/2020 Patient Name: Will Howard Visit Number: [id number] ATTENTION: The Clinical Documentation Specialists (CDI) and [facility] Coding Staff appreciate your assistance in clarifying documentation. Please respond to the clarification below the line at the bottom and electronically sign. The CDI & [facility] Coding staff will review the response and follow-up if needed. Please note: Queries are made part of the Legal Health Record. If you have any questions, please contact the author of this message via ITS. Dear Juan Pablo Araya MD., The patients principal diagnosis has not been clearly identified and requires clarification. He presented with the Generalized weakness fatigue, Mild lactic acidosis secondary to liver disease. History/Risk factors: Coagulation defect, Hemorrhoides, FANNY, DM Clinical Indicators: Liver lesion, Cholangitis. Radiology findings:Status post ultrasound-guided 18-gauge core biopsy of the liver.Innumerable masses diffusely involving the right and left lobes of the liver. Pathology pending Vital Signs:Temperature 98.8 F Pulse Rate 127 H 122 H 108 H Respiratory 20 22 23 Rate Blood Pressure 101/64 101/78 117/72 O2 Sat by Pulse 98 98 98 Oximetry Treatment: IV antibiotics. 06/09 Alexey Ruiz mentioned as "A component of underlying cholangitis is not entirely excluded with elevated CRP" 06/09 Dr. Fab Sanz mentioned as "Leukocytosis:- ID is following- Bañuelos cultures neg to date- Likely reactive" Lesion liver pending liver biopsy results. 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 Sepsis secondary to Possible Cholangitis Metastatic Liver adenocarcinoma MTDD
--- NOTE | 2020-06-14 12:20 | P.ARTDOP ---
Arterial Doppler LOWER EXTREMITY ARTERIAL DOPPLER: DATE OF SERVICE: 06/07/2020 Reason for study: : Left foot. Doppler waveforms: Multiphasic bilaterally throughout. Pulse volume recording: []. Pressure gradients: None. Ankle-brachial indices: Greater than 1 bilaterally. Toe brachial indices: 0.97 on the right, 0.93 on the left Impression: Normal study.
== END 2020-06-09 18:24 | disposition home or self-care (01) | DRG 435 ==
LOC: EC 11:32 → 3SCARD 13:45 → 2SICU 15:28 → 3SCARD 06-05 08:24 → 3NCARDOBS 06-05 20:21 → 3SCARD 06-05 20:21
PROVIDERS: ADMIT Family Medicine; ATTEND Family Medicine
PROC: 0FB03ZX Excision of Liver, Percutaneous Approach, Diagnostic (ICD-10-PCS; principal; 2020-06-06)
DX: C78.7 Secondary malignant neoplasm of liver and intrahepatic bile duct (principal); A41.9 Sepsis, unspecified organism; I48.19 Other persistent atrial fibrillation; E87.2 Acidosis; R18.8 Other ascites; K62.5 Hemorrhage of anus and rectum; D68.9 Coagulation defect, unspecified; K82.0 Obstruction of gallbladder; N17.9 Acute kidney failure, unspecified; E11.51 Type 2 diabetes mellitus with diabetic peripheral angiopathy without gangrene; E78.5 Hyperlipidemia, unspecified; I11.0 Hypertensive heart disease with heart failure; Z79.4 Long term (current) use of insulin; I27.29 Other secondary pulmonary hypertension; I25.10 Atherosclerotic heart disease of native coronary artery without angina pectoris; K64.9 Unspecified hemorrhoids; Z96.1 Presence of intraocular lens; I87.2 Venous insufficiency (chronic) (peripheral); R16.0 Hepatomegaly, not elsewhere classified; K74.60 Unspecified cirrhosis of liver; K59.00 Constipation, unspecified; F03.90 Unspecified dementia, unspecified severity, without behavioral disturbance, psychotic disturbance, mood disturbance, and anxiety; T45.515A Adverse effect of anticoagulants, initial encounter; E88.09 Other disorders of plasma-protein metabolism, not elsewhere classified; T36.8X5A Adverse effect of other systemic antibiotics, initial encounter; Z79.01 Long term (current) use of anticoagulants; Z79.899 Other long term (current) drug therapy; Z98.890 Other specified postprocedural states; Z87.891 Personal history of nicotine dependence; Z82.49 Family history of ischemic heart disease and other diseases of the circulatory system; Z87.828 Personal history of other (healed) physical injury and trauma; Z98.42 Cataract extraction status, left eye; Z98.41 Cataract extraction status, right eye; Z90.89 Acquired absence of other organs
CPT/HCPCS: 36415; 47000; 71045; 71046; 71260; 74177; 76705; 76942; 78306; 80048; 80053; 80076; 80202; 81001; 82105; 82140; 82150; 82378; 83036; 83605; 83690; 83735; 83880; 84145; 84484; 85025; 85027; 85610; 85730; 86140; 86301; 86704; 86708; 86803; 87040; 88307; 88341; 88342; 93005; 93306; 93922; 93970; 96361; 96365; 96367; 96368; 99291